=== PATIENT | female | born 1955 | race Caucasian/White ===

== ENCOUNTER 2016-10-12 16:55 | Inpatient (IN) | payer MEDICARE, OTHER ==
[2016-10-12] MEDS ORDERED: SODIUM CHLORIDE 0.9% 1,000 ML IV STA (17:03)
--- NOTE | 2016-10-12 17:09 | ED ---
General Adult HPI - General Chief complaint: Altered Mental Status Stated complaint: syncope Time Seen by Provider: 10/12/16 17:00 Source: patient, EMS, RN notes reviewed Mode of arrival: EMS Limitations: altered mental status, physical limitation - History of Present Illness Initial comments: Patient is a pleasant 61-year-old female presenting to the emergency Department with episodes of unresponsiveness. Patient was donating plasma with onset of symptoms. EMS reports patient has had approximately 4 episodes prior to arrival. Patient will suddenly become unresponsive. They have noticed PVCs however no other arrhythmia. Blood glucose was stable. Patient does have several episodes in the emergency department. It is difficult to obtain any history from the patient. Patient is able to orient self 3 however no further information is difficult to obtain. Patient does deny any pain. No history of similar symptoms previously - Related Data Home Medications Medication Instructions Recorded Confirmed Naproxen Sodium [Aleve] 440 mg PO BID PRN 10/12/16 10/12/16 Allergies Allergy/AdvReac Type Severity Reaction Status Date / Time hydromorphone HCl Allergy Dyspnea Verified 10/12/16 17:36 [From Dilaudid] Iodinated Contrast Media - AdvReac Severe Decreased Verified 10/12/16 17:36 Oral and Blood Pressure Review of Systems ROS Statement: Those systems with pertinent positive or pertinent negative responses have been documented in the HPI. ROS Other: All systems not noted in ROS Statement are negative. Constitutional: Denies: fever Eyes: Reports: vision change (Hard to move the eyes) ENT: Denies: throat pain Respiratory: Denies: dyspnea Cardiovascular: Denies: chest pain Endocrine: Denies: polydipsia Gastrointestinal: Denies: abdominal pain Genitourinary: Denies: dysuria Musculoskeletal: Denies: back pain Skin: Denies: rash Neurological: Reports: confusion Past Medical History Past Medical History: Pneumonia Additional Past Medical History / Comment(s): irregular heart beat, chronic low back pain, bronchitis, recent UTI completed ABX and urine now clear. History of Any Multi-Drug Resistant Organisms: None Reported Past Surgical History: Appendectomy, Cholecystectomy, Hysterectomy, Orthopedic Surgery, Tonsillectomy, Tubal Ligation Additional Past Surgical History / Comment(s): Posterior lumbar decompression with fusion L5-S1, plate L wrist, laparoscopy-found tubal infection tx with ABX. Past Anesthesia/Blood Transfusion Reactions: No Reported Reaction Past Psychological History: No Psychological Hx Reported Additional Psychological History / Comment(s): Pt resides with her spouse. She is independent. Smoking Status: Former smoker Past Alcohol Use History: None Reported Additional Past Alcohol Use History / Comment(s): Pt states she started smoking in 1979 and quit in 2009. Past Drug Use History: None Reported - Past Family History Father History Unknown: Yes Mother Family Medical History: Seizure Disorder Additional Family Medical History / Comment(s): Mother is 81 yrs old. She has depression. General Exam Limitations: altered mental status General appearance: alert Head exam: Present: atraumatic Eye exam: Present: normal appearance, PERRL, other (Very difficult to perform eye exam. Patient states she is unable to move her eyes. This does appear to be transient.) ENT exam: Present: normal oropharynx, other (Gag reflex is present ) Neck exam: Present: normal inspection Respiratory exam: Present: normal lung sounds bilaterally Cardiovascular Exam: Present: regular rate, normal rhythm Expanded Peripheral pulses: 2+: Radial (R), Radial (L), Dorsalis Pedis (R), Dorsalis Pedis (L) GI/Abdominal exam: Present: soft, normal bowel sounds. Absent: distended, tenderness, guarding, rebound, rigid, pulsatile mass Extremities exam: Present: normal inspection. Absent: pedal edema, calf tenderness Expanded Neurological exam: Present: protecting the airway, other (Unable to assess fully for facial palsy. Patient has difficulty with exam) Patient oriented to: Present: person, place, time Cranial nerves: Facial Sensation: Normal Sensory exam: Upper Extremity Light Touch: Normal, Lower Extremity Light Touch: Normal Motor strength exam: RUE: 3, LUE: 5, RLE: 2/1, LLE: 2/1 Eye Response: (4) open spontaneously Motor Response: (6) obeys commands Verbal Response: (5) oriented Psychiatric exam: Present: normal affect, normal mood Skin exam: Present: normal color Course Vital Signs 10/12/16 10/12/16 10/12/16 16:56 17:00 17:15 Temperature 98.0 F Pulse Rate 55 L 60 58 L Respiratory 16 16 16 Rate Blood Pressure 144/70 145/68 139/65 O2 Sat by Pulse 98 100 Oximetry 10/12/16 10/12/16 17:30 17:45 Temperature 98.0 F 98.0 F Pulse Rate 82 70 Respiratory 16 18 Rate Blood Pressure 132/78 122/58 O2 Sat by Pulse 96 100 Oximetry - Reevaluation(s) Reevaluation #1: 10/12/16 17:09 Patient does have several episodes in the emergency department of decreased responsiveness. Patient does not talk during these episodes her follow commands. Patient also has episodes in between unresponsiveness and near full responsiveness. 10/12/16 17:38 Case was discussed with neural interventionalist, Dr. choi who is not completely convinced this is a stroke. He will review CT and CTA. Patient is going for CTA at this time. 10/12/16 18:36 Case again discussed with Dr. Choi who does not see acute abnormality with CTA. He is agreeable to starting Dilantin for possible seizure. He is also unclear of exact etiology causing the patient's symptoms at this time. 10/12/16 19:45 Patient again reexamined and significantly improved. Patient is alert and appropriate. No upper extremity weakness. Patient still has bilateral leg weakness. Patient is now complaining of dizziness. Patient earlier had complained of nausea. EKG Findings - EKG Comments: EKG Findings:: Bradycardia at 58. PVC is present. IL 136. QRS 84. QT 440. qtc 41. Normal axis. Normal QRS. Normal ST-T. Medical Decision Making - Lab Data Result diagrams: 10/12/16 17:33 10/12/16 17:33 Lab Results 10/12/16 10/12/16 10/12/16 Range/Units 17:33 17:33 17:33 WBC 13.9 H (3.8-10.6) k/uL RBC 4.91 (3.80-5.40) m/uL Hgb 15.2 (11.4-16.0) gm/dL Hct 45.9 (34.0-46.0) % MCV 93.5 (80.0-100.0) fL MCH 30.9 (25.0-35.0) pg MCHC 33.0 (31.0-37.0) g/dL RDW 12.9 (11.5-15.5) % Plt Count 342 (150-450) k/uL Neutrophils % 65 % Lymphocytes % 27 % Monocytes % 4 % Eosinophils % 1 % Basophils % 1 % Neutrophils # 9.1 H (1.3-7.7) k/uL Lymphocytes # 3.7 (1.0-4.8) k/uL Monocytes # 0.6 (0-1.0) k/uL Eosinophils # 0.2 (0-0.7) k/uL Basophils # 0.1 (0-0.2) k/uL PT (9.0-12.0) sec INR (<1.1) APTT (22.0-30.0) sec Sodium 138 (137-145) mmol/L Potassium 4.2 (3.5-5.1) mmol/L Chloride 109 H (98-107) mmol/L Carbon Dioxide 25 (22-30) mmol/L Anion Gap 4 mmol/L BUN 21 H (7-17) mg/dL Creatinine 0.93 (0.52-1.04) mg/dL Est GFR (MDRD) Af Amer >60 (>60 ml/min/1.73 sqM) Est GFR (MDRD) Non-Af >60 (>60 ml/min/1.73 sqM) Glucose 98 (74-99) mg/dL POC Glucose (mg/dL) (75-99) mg/dL POC Glu Parts Designer ID Calcium 9.4 (8.4-10.2) mg/dL Total Bilirubin 0.5 (0.2-1.3) mg/dL AST 15 (14-36) U/L ALT 25 (9-52) U/L Alkaline Phosphatase 70 (38-126) U/L Total Creatine Kinase 55 (30-135) U/L CK-MB (CK-2) 0.4 (0.0-2.4) ng/mL CK-MB (CK-2) Rel Index 0.7 Troponin I <0.012 (0.000-0.034) ng/mL Total Protein 5.8 L (6.3-8.2) g/dL Albumin 3.4 L (3.5-5.0) g/dL Urine Color Urine Appearance (Clear) Urine pH (5.0-8.0) Ur Specific [place] (1.001-1.035) Urine Protein (Negative) Urine Glucose (UA) (Negative) Urine Ketones (Negative) Urine Blood (Negative) Urine Nitrite (Negative) Urine Bilirubin (Negative) Urine Urobilinogen (<2.0) mg/dL Ur Leukocyte Esterase (Negative) Urine RBC (0-5) /hpf Urine WBC (0-5) /hpf Ur Squamous Epith Cells (0-4) /hpf Urine Bacteria (None) /hpf Hyaline Casts (0-2) /lpf Urine Mucus (None) /hpf Urine Opiates Screen (NotDetected) Ur Oxycodone Screen (NotDetected) Urine Methadone Screen (NotDetected) Ur Propoxyphene Screen (NotDetected) Ur Barbiturates Screen (NotDetected) U Tricyclic Antidepress (NotDetected) Ur Phencyclidine Scrn (NotDetected) Ur Amphetamines Screen (NotDetected) U Methamphetamines Scrn (NotDetected) U Benzodiazepines Scrn (NotDetected) Urine Cocaine Screen (NotDetected) U Marijuana (THC) Screen (NotDetected) 10/12/16 10/12/16 10/12/16 Range/Units 17:33 17:55 18:46 WBC (3.8-10.6) k/uL RBC (3.80-5.40) m/uL Hgb (11.4-16.0) gm/dL Hct (34.0-46.0) % MCV (80.0-100.0) fL MCH (25.0-35.0) pg MCHC (31.0-37.0) g/dL RDW (11.5-15.5) % Plt Count (150-450) k/uL Neutrophils % % Lymphocytes % % Monocytes % % Eosinophils % % Basophils % % Neutrophils # (1.3-7.7) k/uL Lymphocytes # (1.0-4.8) k/uL Monocytes # (0-1.0) k/uL Eosinophils # (0-0.7) k/uL Basophils # (0-0.2) k/uL PT 10.8 (9.0-12.0) sec INR 1.1 (<1.1) APTT 20.6 L (22.0-30.0) sec Sodium (137-145) mmol/L Potassium (3.5-5.1) mmol/L Chloride (98-107) mmol/L Carbon Dioxide (22-30) mmol/L Anion Gap mmol/L BUN (7-17) mg/dL Creatinine (0.52-1.04) mg/dL Est GFR (MDRD) Af Amer (>60 ml/min/1.73 sqM) Est GFR (MDRD) Non-Af (>60 ml/min/1.73 sqM) Glucose (74-99) mg/dL POC Glucose (mg/dL) 89 (75-99) mg/dL POC Glu Parts Designer ID Marya Kern Calcium (8.4-10.2) mg/dL Total Bilirubin (0.2-1.3) mg/dL AST (14-36) U/L ALT (9-52) U/L Alkaline Phosphatase (38-126) U/L Total Creatine Kinase (30-135) U/L CK-MB (CK-2) (0.0-2.4) ng/mL CK-MB (CK-2) Rel Index Troponin I (0.000-0.034) ng/mL Total Protein (6.3-8.2) g/dL Albumin (3.5-5.0) g/dL Urine Color Yellow Urine Appearance Clear (Clear) Urine pH 5.5 (5.0-8.0) Ur Specific [place] 1.028 (1.001-1.035) Urine Protein Negative (Negative) Urine Glucose (UA) Negative (Negative) Urine Ketones Negative (Negative) Urine Blood Negative (Negative) Urine Nitrite Positive H (Negative) Urine Bilirubin Negative (Negative) Urine Urobilinogen <2.0 (<2.0) mg/dL Ur Leukocyte Esterase Negative (Negative) Urine RBC <1 (0-5) /hpf Urine WBC 1 (0-5) /hpf Ur Squamous Epith Cells <1 (0-4) /hpf Urine Bacteria Rare H (None) /hpf Hyaline Casts 5 H (0-2) /lpf Urine Mucus Rare H (None) /hpf Urine Opiates Screen Not Detected (NotDetected) Ur Oxycodone Screen Not Detected (NotDetected) Urine Methadone Screen Not Detected (NotDetected) Ur Propoxyphene Screen Not Detected (NotDetected) Ur Barbiturates Screen Not Detected (NotDetected) U Tricyclic Antidepress Not Detected (NotDetected) Ur Phencyclidine Scrn Not Detected (NotDetected) Ur Amphetamines Screen Not Detected (NotDetected) U Methamphetamines Scrn Not Detected (NotDetected) U Benzodiazepines Scrn Not Detected (NotDetected) Urine Cocaine Screen Not Detected (NotDetected) U Marijuana (THC) Screen Not Detected (NotDetected) Disposition Clinical Impression: Syncope Disposition: ADMITTED IP TO THIS [facility] Condition: Serious Time of Disposition: 19:45
[2016-10-12] MEDS ORDERED: FAMOTIDINE 20 MG/2 ML VIAL IV STA (17:13)
[2016-10-12] MEDS ORDERED: diphenhydrAMINE 50 MG/ML 1 ML VIAL IVP STA (17:13)
[2016-10-12] MEDS ORDERED: methylPREDNISolone SOD SUCCI 125 MG/2 ML VIAL IV STA (17:13)
[2016-10-12] MEDS ORDERED: RX INFO: IV CONTRAST WAS GIVEN 1 EACH MISC MISCELLANE PRN (17:13)
--- NOTE | 2016-10-12 17:23 | CT ---
EXAMINATION TYPE: CT brain wo con for TPA DATE OF EXAM: 10/12/2016 5:14 PM COMPARISON: NONE INDICATION: Stroke like symptoms. DLP: 998 mGycm, Automated exposure control for dose reduction was used. CONTRAST: None CT of the brain is performed utilizing 3 mm thick sections through the posterior fossa and 3 mm thick sections through the remaining calvarium. Study is performed within 24 hours of arrival to the hosp ital. No abnormal hyperdensity is present to suggest an acute intracranial hemorrhage. No mass lesion is evident. No acute infarcts are evident. Ventricles and sulci are appropriate for the patient age. Paranasal sinuses and mastoid air cells within the [id number] are clear. IMPRESSIONS: 1. Normal CT Brain 2. No acute intracranial changes. 3. Report was called to the emergency room physician Dr. Lan 1720 hours 10/12/[address] Dawson.
[2016-10-12 17:56] LABS: Glucose,Whole Blood 89 mg/dL (75-99)
[2016-10-12 18:11] LABS: Basophils # (A) 0.1 k/uL (0-0.2); Basophils % (A) 1 %; CH 31.4; CHCM 33.7; Eosinophils # (A) 0.2 k/uL (0-0.7); Eosinophils % (A) 1 %; HCT 45.9 % (34.0-46.0); HDW 2.29; HGB 15.2 gm/dL (11.4-16.0); Luc # (Auto) 0.25; Luc % (Auto) 2; Lymphocytes # (A) 3.7 k/uL (1.0-4.8); Lymphocytes % (A) 27 %; MCH 30.9 pg (25.0-35.0); MCV 93.5 fL (80.0-100.0); Mean Platelet Volume 6.8; Monocytes # (A) 0.6 k/uL (0-1.0); Monocytes % (A) 4 %; Neutrophils # (A) 9.1 k/uL (1.3-7.7); Neutrophils % (A) 65 %; RBC 4.91 m/uL (3.80-5.40); RDW 12.9 % (11.5-15.5); WBC 13.9 k/uL (3.8-10.6); WBC (Perox) 14.05
[2016-10-12] MEDS ORDERED: NALOXONE 0.4 MG/ML 1 ML VIAL IV STA (18:14)
--- NOTE | 2016-10-12 18:24 | CT ---
EXAMINATION TYPE: CT angio head neck DATE OF EXAM: 10/12/2016 5:57 PM COMPARISON: NONE HISTORY: Stroke like symptoms. CT DLP: 270 mGycm Automated exposure control for dose reduction was used. TECHNIQUE: Performed with IV Contrast, patient injected with 65 mL of Omnipaque 350. . FINDINGS: CTA neck: There is a three-vessel arch. Vertebral arteries appear codominant. Common carotid arteries appear unremarkable. Bifurcations are low at the level of the vocal cords. Internal carotid arteries are patent to the [place]: A1 segments are normal. A2 segments are normal. Middle cerebral artery branches marlene ear normal bilaterally. No abrupt truncation is evident. There is smaller peripheral vascularity of t he left middle cerebral artery branches than on the right. Correlate with the patient's symptoms. Lef t posterior communicating artery appears to be patent. Reconstructed images in the coronal and sagittal plane are more symmetrical appearance. Suspicious ch anges are not identified 3-D [id number] imaging is performed separately on the vitrea atheromatous plaquing of the right i nternal carotid artery origin is noted. No significant flow-limiting. Computer. IMPRESSION: THERE IS SOME SUBTLE ASYMMETRY OF THE LEFT MIDDLE CEREBRAL ARTERY BRANCHES PERFUSION COMPARED TO THE RIGHT. HOWEVER, AN ABRUPT CUT OFF IS NOT IDENTIFIED. 2. BILATERAL CAROTID BIFURCATIONS HAVE A LOW ORIGIN. NO STENOSIS IS EVIDENT.
[2016-10-12 18:31] LABS: INR 1.1 (<1.1); Prothrombin Time 10.8 sec (9.0-12.0)
[2016-10-12] MEDS ORDERED: PHENYTOIN SODIUM INJ 1,000 MG in SODIUM CHLORIDE 0.9% 100 ML IVPB STA (18:36)
[2016-10-12 18:41] LABS: Creatine Kinase 55 U/L (30-135)
[2016-10-12 18:47] LABS: ALT 25 U/L (9-52); AST 15 U/L (14-36); Alkaline Phosphatase 70 U/L (38-126); Anion Gap 4 mmol/L; Blood Urea Nitrogen 21 mg/dL (7-17); Calcium 9.4 mg/dL (8.4-10.2); Carbon Dioxide 25 mmol/L (22-30); Chloride 109 mmol/L (98-107); Glucose 98 mg/dL (74-99); Non-African American GFR(MDRD) >60 (>60 ml/min/1.73 sqM); Potassium 4.2 mmol/L (3.5-5.1); Sodium 138 mmol/L (137-145); Total Bilirubin 0.5 mg/dL (0.2-1.3); Total Protein 5.8 g/dL (6.3-8.2)
[2016-10-12 18:52] LABS: Creatine Kinase MB 0.4 ng/mL (0.0-2.4); Troponin I <0.012 ng/mL (0.000-0.034)
--- NOTE | 2016-10-12 19:15 | XR ---
EXAMINATION TYPE: XR chest 1V portable DATE OF EXAM: 10/12/2016 6:51 PM COMPARISON: 06/21/2016 INDICATION: Altered mental status TECHNIQUE: Single frontal view of the chest is obtained. FINDINGS: The heart size is normal. The pulmonary vasculature is normal. The lungs are clear. IMPRESSION: 1. No acute pulmonary process.
[2016-10-12] MEDS ORDERED: ONDANSETRON 4 MG/2 ML VIAL IVP STA (19:18)
[2016-10-12 19:35] LABS: Partial Thromboplastin Time 20.6 sec (22.0-30.0)
[2016-10-12 19:36] LABS: Appearance,Urine Clear (Clear); Bacteria,Urine Rare /hpf; Bilirubin,Urine Negative (Negative); Glucose,Urine (UA) Negative (Negative); Ketones,Urine Negative (Negative); Leukocyte Esterase,Urine Negative (Negative); Mucus,Urine Rare /hpf; Nitrite,Urine Positive (Negative); PH, Urine 5.5 (5.0-8.0); Particle Count 40669; Protein,Urine Negative (Negative); RBC,Urine <1 /hpf (0-5); Specific Gravity,Urine 1.028 (1.001-1.035); Squamous Epithelial Cell,Urine <1 /hpf (0-4); UA Billing (MACRO vs. MICRO) MICRO; Urobilinogen,Urine <2.0 mg/dL (<2.0); WBC,Urine 1 /hpf (0-5)
[2016-10-12] MEDS ORDERED: METOCLOPRAMIDE 5 MG/ML 2 ML VIAL IVP STA (19:46)
[2016-10-12] MEDS ORDERED: MECLIZINE 12.5 MG TAB PO STA (19:46)
[2016-10-12] MEDS ORDERED: ASPIRIN 325 MG TAB PO STA (19:47)
[2016-10-12] MEDS ORDERED: MECLIZINE 25 MG TAB PO STA (22:26)
[2016-10-12] MEDS: SODIUM CHLORIDE 0.9% 1,000 ML IV SCH (23:23)
[2016-10-13] MEDS: SODIUM CHLORIDE 0.9% 1,000 ML IV SCH ×2 (06:58→15:31)
[2016-10-13] MEDS: ASPIRIN 325 MG TAB PO SCH (07:39)
--- NOTE | 2016-10-13 08:41 | US ---
EXAMINATION TYPE: US carotid duplex BILAT DATE OF EXAM: 10/13/2016 8:29 AM COMPARISON: NONE CLINICAL HISTORY: Stenosis. Syncope EXAM MEASUREMENTS: RIGHT: Peak Systolic Velocity (PSV) cm/sec ----- Right CCA: 78.4 ----- Right ICA: 64.7 ----- Right ECA: 111.3 ICA/CCA ratio: 0.8 RIGHT: End Diastole cm/sec ----- Right CCA: 24.6 ----- Right ICA: 23.0 ----- Right ECA: 22.5 LEFT: Peak Systolic Velocity (PSV) cm/sec ----- Left CCA: 59.4 ----- Left ICA: 71.1 ----- Left ECA: 98.2 ICA/CCA ratio: 1.2 LEFT: End Diastole cm/sec ----- Left CCA: 16.7 ----- Left ICA: 16.7 ----- Left ECA: 18.0 VERTEBRALS (direction of flow): Right Vertebral: Antegrade Left Vertebral: Antegrade Mild plaque bilateral bifurcations. No increased velocities. NO evidence of significant stenosis. Heart plaque in posterior shadowing is at the right common carotid artery near the bifurcation. Intim al thickening is present on the right. Mild plaquing is present on the left. IMPRESSION: 1. Atheromatous plaquing without significant flow-limiting stenosis. Criteria for Assigning % of Stenosis / Diameter reduction (Estimation based on the indirect measurements of the internal carotid artery velocities (ICA PSV). 1. Normal (no stenosis)=ICA PSV < 125 cm/s: ratio < 2.0: ICA EDV<40 cm/s. 2. Less than 50% stenosis=ICA PSV < 125 cm/s: ratio < 2.0: ICA EDV<40 cm/s. 3. 50 to 69% stenosis=ICA PSV of 125 to 230 cm/s: ration 2.0 ? 4.0: ICA EDV 40-100 cm/s. 4. Greater than 70% stenosis to near occlusion= ICA PSV > 230 cm/s: ratio > 4.0: ICA EDV > 100 cm/s. 5. Near occlusion= ICA PSV velocities may be low or undetectable: variable ratio and ICA EDV. 6. Total occlusion=unable to detect flow.
[2016-10-13 11:02] LABS: Cholesterol 124 mg/dL (<200); HDL Cholesterol 39 mg/dL (40-60); Triglycerides 121 mg/dL (<150)
[2016-10-13] MEDS: ATORVASTATIN 40 MG TAB PO SCH (12:18)
--- NOTE | 2016-10-13 13:10 | P.HPIM ---
History of Present Illness H&P Date: 10/13/16 Chief Complaint: CVA with left sided hemiparesis This is a 61-year-old female one of Dr. Alfaro with a previous medical history significant for osteoarthritis, chronic low back pain, without prior history of TIA or CVA, patient underwent plasma donation at the [facility] in one of those clinic, while she was there she developed to have significant dizziness and lightheadedness and she started losing her consciousness is matter fact she lost her consciousness and started to twitch and according to her daughter and her eyes rolled back and the patient was transported to the emergency department at [facility] for evaluation, patient developed to have a significant in responsiveness while she they are had a computed tomography scan of the brain that was negative for acute ischemia patient became quite weak on the left upper and left lower extremity, she was evaluated for TPA by the interventional neurology, and the patient underwent CT angiography that was negative for acute thrombus, and that time patient was loaded with Dilantin and she was admitted to hospital for evaluation and continued to have weakness in the left upper left lower extremity. Review of Systems Constitutional: Reports chronic pain, Denies anorexia, Denies chronic headaches , Denies lethargy, Denies malaise, Denies weakness, Denies weight gain Eyes: denies blurred vision, denies bulging eye, denies decreased vision, denies diplopia Ears: deny: decreased hearing Ears, nose, mouth and throat: Denies dysphagia, Denies neck lump, Denies sore throat Cardiovascular: Denies chest pain, Denies dyspnea on exertion, Denies high blood pressure, Denies paroxysmal nocturnal dyspnea, Denies rapid heart beat, Denies shortness of breath, Denies syncope Respiratory: Denies congestion, Denies cough, Denies cough with sputum, Denies home oxygen, Denies sleep apnea, Denies snoring, Denies wheezing Gastrointestinal: Denies abdominal pain, Denies bloating, Denies BRBPR, Denies heartburn, Denies melena, Denies nausea, Denies vomiting Genitourinary: Denies dysuria Menstruation: Reports post hysterectomy, Reports postmenopausal Musculoskeletal: Reports low back pain Musculoskeletal: absent: ankle pain, ankle stiffness, ankle swelling, elbow pain , elbow stiffness, elbow swelling, foot pain, foot stiffness, foot swelling, hand pain, hand stiffness, hand swelling, hip pain, hip stiffness, hip swelling , knee pain, knee stiffness, knee swelling, shoulder pain, shoulder stiffness, shoulder swelling, wrist pain, wrist stiffness, wrist swelling Integumentary: Denies pruritus, Denies rash Neurological: Reports gait dysfunction, Reports lack of coordination, Reports paralysis, Reports vertigo, Reports weakness Psychiatric: Denies anxiety, Denies depression Endocrine: Denies fatigue, Denies weight change Past Medical History Past Medical History: Hyperlipidemia, Pneumonia Additional Past Medical History / Comment(s): irregular heart beat, chronic low back pain, bronchitis, recent UTI completed ABX and urine now clear. History of Any Multi-Drug Resistant Organisms: None Reported Past Surgical History: Appendectomy, Cholecystectomy, Hysterectomy, Orthopedic Surgery, Tonsillectomy, Tubal Ligation Additional Past Surgical History / Comment(s): Posterior lumbar decompression with fusion L5-S1, plate L wrist, laparoscopy-found tubal infection tx with ABX. Past Anesthesia/Blood Transfusion Reactions: No Reported Reaction Past Psychological History: No Psychological Hx Reported Additional Psychological History / Comment(s): Pt resides with her spouse. She is independent. Smoking Status: Current every day smoker (Patient smokes one pack every day since the age of 16.) Past Alcohol Use History: Rare Additional Past Alcohol Use History / Comment(s): Pt states she started smoking in 1979 and quit in 2009. Past Drug Use History: None Reported - Past Family History Father History Unknown: Yes Family Medical History: No Reported History (She denied much with her father.) Mother Family Medical History: Seizure Disorder (Mother is a 1-year-old has history of seizure and she also has a history of depression.) Additional Family Medical History / Comment(s): Mother is 81 yrs old. She has depression. Brother(s) Family Medical History: No Reported History (Patient has 3 half-brothers no major medical problems.) Sister(s) Family Medical History: No Reported History (Patient has one sister no major medical problem(she carried her from the sperm donor)) Son(s) Family Medical History: No Reported History (Patient has one son major medical problems) Daughter(s) Family Medical History: No Reported History (Patient has one daughter no major medical problems) Medications and Allergies Home Medications Medication Instructions Recorded Confirmed Type Naproxen Sodium [Aleve] 440 mg PO BID PRN 10/12/16 10/12/16 History Allergies Allergy/AdvReac Type Severity Reaction Status Date / Time hydromorphone HCl Allergy Dyspnea Verified 10/12/16 17:36 [From Dilaudid] Iodinated Contrast Media - AdvReac Severe Decreased Verified 10/12/16 17:36 Oral and Blood Pressure Physical Exam Vitals: Vital Signs Temp Pulse Pulse Resp BP BP Pulse Ox 10/13/16 07:37 96.5 F L 65 16 95/56 96 10/13/16 04:00 97.6 F 65 17 108/59 94 L 10/13/16 00:00 97.4 F L 70 18 101/54 93 L 10/12/16 22:47 97.4 F L 70 18 101/54 94 L 10/12/16 22:07 72 17 10/12/16 21:47 97.8 F 72 17 105/62 93 L 10/12/16 21:15 73 18 97/61 96 10/12/16 20:55 73 20 96/56 96 10/12/16 20:32 98.4 F 67 17 105/59 93 L 10/12/16 20:23 66 18 105/58 99 Intake and Output 10/12/16 10/13/16 10/13/16 22:59 06:59 14:59 Intake Total 900 900 Output Total 500 Balance 400 900 Intake: IV 500 900 Sodium Chloride 0.9% 1, 500 900 000 ml @ 100 mls/hr IV . Q10H [facility] Rx#:[id number] Amount of Fluid Infused ( 400 ml) Output: Urine 500 Other: Voiding Method Indwelling Catheter Indwelling Catheter # Voids 1 Weight 68.039 kg - Constitutional General appearance: no acute distress - EENT Eyes: EOMI, PERRLA, no ptosis, no scleral icterus, normal appearance ENT: hearing grossly normal, NA/AT, normal oropharynx, no thrush Ears: bilateral: normal - Neck Neck: no lymphadenopathy, normal ROM, no rigidity, no stridor, no thyromegaly Carotids: bilateral: upstroke normal Thyroid: bilateral: normal size - Respiratory Respiratory: bilateral: diminished, negative: dullness, rales, rhonchi, wheezing , prolonged expiration, prolonged inspiration - Cardiovascular Rhythm: regular Heart sounds: normal: S1, S2 Abnormal Heart Sounds: systolic murmur, no rub, no S3 Gallop, no S4 Gallop, no click - Gastrointestinal General gastrointestinal: normal bowel sounds, soft, no splenomegaly, no tenderness, no umbilical hernia, no ventral hernia - Integumentary Integumentary: normal, normal turgor - Neurologic Neurologic: CNII-XII intact, focal deficits (Left-sided hemiparesis) - Musculoskeletal Musculoskeletal: left sided weakness - Psychiatric Psychiatric: A&O x's 3, appropriate affect, intact judgment & insight Results CBC & Chem 7: 10/12/16 17:33 10/12/16 17:33 Thrombosis Risk Factor Assmnt - DVT/VTE Prophylaxis DVT/VTE Prophylaxis: Pharmacologic Prophylaxis ordered, Mechanical Prophylaxis ordered - Choose All That Apply Each Risk Factor Represents 2 Points: Age 61-74 years Thrombosis Risk Factor Assessment Total Risk Factor Score: 2 Thrombosis Risk Factor Assessment Level: Low Risk Assessment and Plan Plan: Assessment and plan: 1. Possible acute CVA with left-sided hemiparesis. Admit the patient to the hospital, MRI/MRA of the brain, neuro check every 2 hours for the next 24 hours , ultrasound of the carotid, echocardiogram, MRI with and without gadolinium, aspirin 325 mg orally once every day, swallow screen was performed at the bedside by myself, start Lipitor 40 mg orally once every day, check homocysteine level, await further recommendation by neurology, physical therapy , occupational therapy, speech therapy evaluation. 2. Possible seizure. Patient did receive Dilantin by loading dose, we will start the patient on Dilantin 100 mg orally 3 times every day, and we'll recheck the patient Dilantin level and free Dilantin level in the next 24 hours. 3. Chronic tobacco use and dependence . Smoking cessation and counseling an increased risk of CVA, CAD, and malignancy. 4. Right low back pain. Stable at this point in time. 5. DVT prophylaxis. Lovenox 40 mg subcutaneously every 24 hours along with knee-high ATUL hose. 6. GI prophylaxis. Continue patient on PPI. 7. Patient is full code. 8. Admit to inpatient. 9. Estimated length of stay 2 midnights.
--- NOTE | 2016-10-13 17:03 | P.CNNES ---
History of Present Illness Consult date: 10/13/16 Requesting physician: Josef Lan Reason for Consult: CVA Chief complaint: altered mental status/possible CVA History of Present Illness: Neurology being requested to consult on a 61-year-old female who was presented to emergency room with episode of unresponsiveness for possible CVA. Patient was donating plasma when the onset of symptoms occurred. EMS transported the patient. She has had approximately 4 episodes prior to arrival. Patient will suddenly become unresponsive. They noticed PVCs however no other arrhythmia. Blood glucose was stable. Patient did have several episodes in the emergency department. Patient states she has been having dizziness for the last 2-4 weeks. Approximately 1-2 times per week lasting 5 minutes in duration but would resolve with rest. Patient also states she has had headaches bilaterally and globally within the same timeframe. Patient also has had diplopia with intermittent dizziness. She also has had fatigue that is increased at in the last 2-4 weeks but has been generally increasing in the last 2 months. Patient denies current dizziness, diplopia, numbness, tingling, disequilibrium, fever or chills. Patient had visual left eye ptosis that was slight during initial interaction. Patient did complain of left upper and lower extremity weakness, left eye ptosis with facial droop. Patient was alert and oriented 3, supine in bed, resting in no acute distress. Review of Systems All systems not previously noted are negative Past Medical History Past Medical History: Hyperlipidemia, Pneumonia Additional Past Medical History / Comment(s): irregular heart beat, chronic low back pain, bronchitis, recent UTI completed ABX and urine now clear. History of Any Multi-Drug Resistant Organisms: None Reported Past Surgical History: Appendectomy, Cholecystectomy, Hysterectomy, Orthopedic Surgery, Tonsillectomy, Tubal Ligation Additional Past Surgical History / Comment(s): Posterior lumbar decompression with fusion L5-S1, plate L wrist, laparoscopy-found tubal infection tx with ABX. Past Anesthesia/Blood Transfusion Reactions: No Reported Reaction Past Psychological History: No Psychological Hx Reported Additional Psychological History / Comment(s): Pt resides with her spouse. She is independent. Smoking Status: Current every day smoker (Patient smokes one pack every day since the age of 16.) Past Alcohol Use History: Rare Additional Past Alcohol Use History / Comment(s): Pt states she started smoking in 1979 and quit in 2009. Past Drug Use History: None Reported - Past Family History Father History Unknown: Yes Family Medical History: No Reported History (She denied much with her father.) Mother Family Medical History: Seizure Disorder (Mother is a 1-year-old has history of seizure and she also has a history of depression.) Additional Family Medical History / Comment(s): Mother is 81 yrs old. She has depression. Brother(s) Family Medical History: No Reported History (Patient has 3 half-brothers no major medical problems.) Sister(s) Family Medical History: No Reported History (Patient has one sister no major medical problem(she carried her from the sperm donor)) Son(s) Family Medical History: No Reported History (Patient has one son major medical problems) Daughter(s) Family Medical History: No Reported History (Patient has one daughter no major medical problems) Medications and Allergies Home Medications Medication Instructions Recorded Confirmed Type Naproxen Sodium [Aleve] 440 mg PO BID PRN 10/12/16 10/12/16 History Allergies Allergy/AdvReac Type Severity Reaction Status Date / Time hydromorphone HCl Allergy Dyspnea Verified 10/12/16 17:36 [From Dilaudid] Iodinated Contrast Media - AdvReac Severe Decreased Verified 10/12/16 17:36 Oral and Blood Pressure Physical Examination - Vital Signs Vital Signs: Vital Signs Temp Pulse Pulse Resp BP BP BP 10/13/16 15:21 97.8 F 80 16 10/13/16 10:31 66 16 109/56 109/60 10/13/16 07:37 96.5 F L 65 16 10/13/16 04:00 97.6 F 65 17 10/13/16 00:00 97.4 F L 70 18 10/12/16 22:47 97.4 F L 70 18 10/12/16 22:07 72 17 10/12/16 21:47 97.8 F 72 17 10/12/16 21:15 73 18 97/61 10/12/16 20:55 73 20 96/56 10/12/16 20:32 98.4 F 67 17 10/12/16 20:23 66 18 105/58 BP Pulse Ox 10/13/16 15:21 102/50 97 10/13/16 10:31 97 10/13/16 07:37 95/56 96 10/13/16 04:00 108/59 94 L 10/13/16 00:00 101/54 93 L 10/12/16 22:47 101/54 94 L 10/12/16 22:07 10/12/16 21:47 105/62 93 L 10/12/16 21:15 96 10/12/16 20:55 96 10/12/16 20:32 105/59 93 L 10/12/16 20:23 99 Intake and Output 10/13/16 10/13/16 10/13/16 06:59 14:59 22:59 Intake Total 900 416 Balance 900 416 Intake: IV 900 Sodium Chloride 0.9% 1, 900 000 ml @ 100 mls/hr IV . Q10H STEF Rx#:[id number] Oral 416 Other: Voiding Method Indwelling Catheter # Voids 1 2 Constitutional: AOx3, cooperative HEENT: NC/AT, no facial asymmetry is seen. Neck: Supple, no masses Respiratory: No increased work of breathing Cardiac: Regular rate and Rhythm GI: non tender, non distended Musculoskeletal: RUE: 10/25 RLE: 10/25 LUE: 08/25 LLE: 06/27 Neurological: CN II-XII in tact, patient was AOx3, speech and language are normal, unilateralizing weakness as noted- left hemiparesis, left ptosis and left facial droop, no seizure activity note on physical exam. Sensation was normal. Finger to nose elicits 'Crossed eyed" vision per patient. Integementary: no rash, no erythema Psychiatric: mood and affect appropriate Results - Laboratory Findings CBC and BMP: 10/12/16 17:33 10/12/16 17:33 Abnormal Lab Findings: Abnormal Labs 10/13/16 10:12 HDL Cholesterol 39 L Assessment and Plan (1) Hemiparesis affecting left side as late effect of cerebrovascular accident Status: Acute (2) Altered mental status Status: Acute Plan: 1. CVA 2. Altered mental status 3. Left hemiparesis 4. Possible seizure After review of the CT brain which noted no acute process and the CT angiogram which noted some subtle asymmetry of the left MCA branches perfusion compared to the right however an abrupt cutoff is not identified, the patient does appear to have suffered a CVA. Patient does have left-sided hemiparesis, dysphagia due to perioral facial droop. MRI was Ordered along with serum homocystine, fasting lipid panel, aspirin and Lipitor by ED and PCP. MRI of the brain is pending. After reviewing the chart, it does appear the patient's symptoms wax and wane. EEG ordered. PT, OT and speech therapy on consult. Possible seizure. Patient had been started on Trileptal. Continue trileptal and await blood level analysis for therapeutic window. Seizure precaustions as ordered. Further updates be forthcoming once results of the EEG is obtained. status: Neurology will continue to follow, provide further updates as needed or warranted. I discussed the patient's pertinent medical information with Dr. Retana. He agrees with the plan of care as implemented.
[2016-10-14 06:33] VITALS: TEMP 97.3
[2016-10-14] MEDS: SODIUM CHLORIDE 0.9% 1,000 ML IV SCH (06:36)
[2016-10-14 06:49] LABS: Basophils # (A) 0.1 k/uL (0-0.2); Basophils % (A) 1 %; CH 31.2; CHCM 34.1; Eosinophils # (A) 0.2 k/uL (0-0.7); Eosinophils % (A) 2 %; HCT 30.7 % (34.0-46.0); HDW 2.35; Luc # (Auto) 0.23; Luc % (Auto) 3; Lymphocytes # (A) 3.6 k/uL (1.0-4.8); Lymphocytes % (A) 41 %; MCHC 34.8 g/dL (31.0-37.0); MCV 91.9 fL (80.0-100.0); Mean Platelet Volume 6.7; Monocytes # (A) 0.5 k/uL (0-1.0); Monocytes % (A) 5 %; Neutrophils # (A) 4.1 k/uL (1.3-7.7); Neutrophils % (A) 48 %; RBC 3.34 m/uL (3.80-5.40); RDW 12.9 % (11.5-15.5); WBC 8.6 k/uL (3.8-10.6); WBC (Perox) 8.75
[2016-10-14 06:57] LABS: HGB 10.7 gm/dL (11.4-16.0)
[2016-10-14 07:06] LABS: ALT 25 U/L (9-52); AST 11 U/L (14-36); Alkaline Phosphatase 57 U/L (38-126); Anion Gap 4 mmol/L; Blood Urea Nitrogen 17 mg/dL (7-17); Calcium 8.7 mg/dL (8.4-10.2); Carbon Dioxide 23 mmol/L (22-30); Chloride 116 mmol/L (98-107); Glucose 84 mg/dL (74-99); Non-African American GFR(MDRD) >60 (>60 ml/min/1.73 sqM); Potassium 4.1 mmol/L (3.5-5.1); Sodium 143 mmol/L (137-145); Total Bilirubin 0.2 mg/dL (0.2-1.3); Total Protein 4.6 g/dL (6.3-8.2)
[2016-10-14] MEDS: ATORVASTATIN 40 MG TAB PO SCH (07:47)
[2016-10-14] MEDS: ASPIRIN 325 MG TAB PO SCH (07:47)
[2016-10-14] MEDS ORDERED: methylPREDNISolone SOD SUCCI 125 MG/2 ML VIAL IV STA (09:38)
[2016-10-14] MEDS ORDERED: diphenhydrAMINE 50 MG CAP PO STA (09:38)
--- NOTE | 2016-10-14 09:58 | ECHOF ---
Referral Reason:Thrombus MEASUREMENTS -------- HEIGHT: 165.1 cm WEIGHT: 62.1 kg BP: 86/53 RVIDd: 3.0 cm (< 3.3) IVSd: 1.0 cm (0.6 - 1.1) LVIDd: 4.5 cm (3.9 - 5.3) LVPWd: 0.8 cm (0.6 - 1.1) IVSs: 1.5 cm LVIDs: 3.0 cm LVPWs: 1.4 cm LA Diam: 3.4 cm (2.7 - 3.8) LAESV Index (A-L): 28.41 ml/m Ao Diam: 2.9 cm (2.0 - 3.7) AV Cusp: 2.3 cm (1.5 - 2.6) MV EXCURSION: 12.972 mm (> 18.000) MV EF SLOPE: 113 mm/s (70 - 150) EPSS: 0.3 cm MV E Pascual: 0.97 m/s MV DecT: 202 ms MV A Pascual: 0.79 m/s MV E/A Ratio: 1.23 RAP: 5.00 mmHg RVSP: 22.13 mmHg FINDINGS -------- Sinus rhythm. This was a technically good study. The left ventricular size is normal. Left ventricular wall thickness is normal. Overall left ventricular systolic function is normal with, an EF between 60 - 65 %. The right ventricle is normal in size and function. Normal LA size by volume 22+/-6 ml/m2. The right atrium is normal in size. The aortic valve is trileaflet and appears structurally normal. Mild mitral annular calcification present. There is trace to mild mitral regurgitation. Mild tricuspid regurgitation present. Right ventricular systolic pressure is normal at < 35 mmHg. The pulmonic valve is normal. The aortic root size is normal. The inferior vena cava is mildly dilated. There is no pericardial effusion. CONCLUSIONS -------- 1. Sinus rhythm. 2. Mild mitral annular calcification present. 3. There is trace to mild mitral regurgitation. 4. Mild tricuspid regurgitation present. 5. Right ventricular systolic pressure is normal at < 35 mmHg. 6. The pulmonic valve is normal. 7. The aortic root size is normal. 8. The inferior vena cava is mildly dilated. 9. There is no pericardial effusion. 10. This was a technically good study. 11. The left ventricular size is normal. 12. Left ventricular wall thickness is normal. 13. Overall left ventricular systolic function is normal with, an EF between 60 - 65 %. 14. The right ventricle is normal in size and function. 15. Normal LA size by volume 22+/-6 ml/m2. 16. The right atrium is normal in size. 17. The aortic valve is trileaflet and appears structurally normal. LAYOUT ARTIST: Rosita Covarrubias RDCS
[2016-10-14 11:18] VITALS: BMI 22.8
--- NOTE | 2016-10-14 11:38 | MR ---
EXAMINATION TYPE: MR brain wo/w con DATE OF EXAM: 10/14/2016 11:22 AM COMPARISON: CT brain from 2 days earlier. HISTORY: CVA per order. Admitted for neuro deficits and strokelike symptoms 2 days earlier. TECHNIQUE: Multiplanar, multisequence images of the brain and brainstem is performed without and with IV contras t, utilizing 15 mL intravenous MultiHance . FINDINGS: Diffusion weighted images demonstrate no evidence of a recent infarct or other diffusion ab normality. There is no extra-axial fluid collection or significant white matter signal abnormality. The ventricular system and cisternal spaces are normal in size and appearance. The brain volume is age appropriate. Midline structures demonstrate normal morphology. The craniocervical junction appears within normal limits. Post contrast images demonstrate no abnormal enhancement. The dural venous sinuses appear pa tent. The visualized sinuses are clear and the globes are intact. IMPRESSION: No evidence of a recent infarct. No significant finding is seen to account for patient's symptoms currently.
[2016-10-14 12:48] VITALS: BP 124/63; PULSE 68; RESP 17
--- NOTE | 2016-10-16 14:38 | P.DS ---
Providers Date of admission: 10/12/16 19:47 Expected date of discharge: 10/14/16 Attending physician: Wilner Duke Primary care physician: Jarrett Alfaro [facility] Course: This is a 61-year-old female one of Dr. Alfaro with a previous medical history significant for osteoarthritis, chronic low back pain, without prior history of TIA or CVA, patient underwent plasma donation at the [facility] in one of those clinic, while she was there she developed to have significant dizziness and lightheadedness and she started losing her consciousness is matter fact she lost her consciousness and started to twitch and according to her daughter and her eyes rolled back and the patient was transported to the emergency department at [facility] for evaluation, patient developed to have a significant in responsiveness while she they are had a computed tomography scan of the brain that was negative for acute ischemia patient became quite weak on the left upper and left lower extremity, she was evaluated for TPA by the interventional neurology, and the patient underwent CT angiography that was negative for acute thrombus, and that time patient was loaded with Dilantin and she was admitted to hospital for evaluation and continued to have weakness in the left upper left lower extremity. 10/14: Echocardiogram reveals EF 60-65%, mild mitral regurgitation, mild tricuspid regurgitation. Carotid ultrasound showed no significant stenosis. MRI of the brain showed no evidence of recent infarct. No significant finding. Patient was seen by neurology with recommendations to continue Trileptal. Patient will be provided prescription for this and follow up with Dr. Retana. Discharge Diagnoses: 1. TIA 2. Possible seizure. 3. Chronic tobacco use and dependence 4. Right low back pain. Discharge plan: Home Impression and plan of care have been directed as dictated by the signing physician. Ashwini Hemphill nurse practitioner acting as scribe for signing physician. Cc: Dr. Jarrett Alfaro Patient Condition at Discharge: Good Plan - Discharge Summary New Discharge Prescriptions: Aspirin 81 mg PO DAILY #30 chewable Atorvastatin [Lipitor] 40 mg PO HS #30 tab OXcarbazepine [Trileptal] 300 mg PO BID #60 tab Discharge Medication List Naproxen Sodium [Aleve] 440 mg PO BID PRN 10/12/16 [History] Aspirin 81 mg PO DAILY #30 chewable 10/14/16 [Rx] Atorvastatin [Lipitor] 40 mg PO HS #30 tab 10/14/16 [Rx] OXcarbazepine [Trileptal] 300 mg PO BID #60 tab 10/14/16 [Rx] Follow up Appointment(s)/Referral(s): Amanda Retana MD [STAFF PHYSICIAN] - 2 Weeks Jarrett Alfaro MD [Primary Care Provider] - 1 Week Patient Instructions/Handouts: Syncope (DC), Ischemic Stroke (DC), Altered Mental Status (GEN) Discharge Disposition: HOME SELF-CARE
--- NOTE | 2016-10-30 09:08 | EEG ---
DATE OF SERVICE: 10/14/2016 INDICATIONS FOR EXAMINATION: Syncope and altered mental status. AGE: 61Y DESCRIPTION OF THE PROCEDURE: This EEG was performed using a 21-channel digital electroencephalograph, following the international 10 to 20 system. DESCRIPTION OF THE RECORDING: From the beginning of the tracing, and with the patient's eyes closed, the background rhythm was mostly consisting of 8 to 9 Hz alpha frequency in the posterior occipital leads. No obvious asymmetry is seen. Photic stimulation was performed with a minimal driving response seen. No pathological waves were elicited. Rare movement artifacts are noticed. Hyperventilation was not performed. The patient remains awake throughout the tracing. No epileptiform discharges were seen. Her EKG lead showed a regular rate and rhythm. INTERPRETATION: This awake EEG can be considered within normal limits. There was no asymmetry seen. No epileptiform discharges were noticed. The absence of epileptiform discharges does not rule out the diagnosis of epilepsy, therefore, clinical correlation is recommended.
== END 2016-10-14 15:40 | disposition home or self-care (01) | DRG 69 ==
LOC: EC 16:55 → 6SEL 19:47
PROVIDERS: ADMIT Internal Medicine; ATTEND Internal Medicine
DX: G45.9 Transient cerebral ischemic attack, unspecified (principal); I69.354 Hemiplegia and hemiparesis following cerebral infarction affecting left non-dominant side; I08.1 Rheumatic disorders of both mitral and tricuspid valves; G89.29 Other chronic pain; M54.5 Low back pain; M19.91 Primary osteoarthritis, unspecified site; E78.5 Hyperlipidemia, unspecified; H02.402 Unspecified ptosis of left eyelid; I49.3 Ventricular premature depolarization; F17.210 Nicotine dependence, cigarettes, uncomplicated; Z90.49 Acquired absence of other specified parts of digestive tract; Z90.710 Acquired absence of both cervix and uterus
CPT/HCPCS: 36415; 70450; 70496; 70498; 70553; 71010; 80053; 80061; 80185; 80186; 80306; 81001; 82550; 82553; 83090; 84484; 85025; 85610; 85730; 93005; 93306; 93880; 95816; 96361; 96365; 96366; 96375; 99285

== ENCOUNTER → 2016-11-15 | Outpatient (CLI) | payer MEDICARE, OTHER ==
--- NOTE | 2016-11-15 14:38 | MR ---
MR brain with and without contrast history: Stroke, I 63.9 Multiplanar multisequence and postcontrast images obtained through the brain, patient received 15 cc MultiHance IV. Correlation to prior MRI brain 13 Nov 2016 There is no restricted diffusion. Cerebellopontine angles, corpus callosum, pituitary, cervical medul braydon junction are normal. Brain signal is stable. There is no hemorrhage or hydrocephalus. The orbits are symmetric. There are normal vascular flow voids, normal vascular enhancement. No abnormal enhanc ement is evident. IMPRESSION: Stable exam, no acute abnormality evident.
== END | disposition home or self-care (01) ==
LOC: RADMRIMAIN 13:43
PROVIDERS: ATTEND Psychiatry & Neurology Pain Medicine
DX: I63.9 Cerebral infarction, unspecified (principal)
CPT/HCPCS: 70553; A9577

== ENCOUNTER → 2016-12-12 | Outpatient (CLI) | payer MEDICARE, OTHER | END | disposition home or self-care (01) | LOC: LABWHC1 16:49 | PROVIDERS: ATTEND Psychiatry & Neurology Pain Medicine | DX: E55.9 Vitamin D deficiency, unspecified (principal) | CPT/HCPCS: 36415; 82306 ==

== ENCOUNTER 2017-05-17 13:17 | Emergency (ER) | payer MEDICARE, OTHER ==
[2017-05-17] MEDS ORDERED: IPRATROPIUM-ALBUTEROL 3 ML NEB INHALATION STA (14:05)
[2017-05-17] MEDS ORDERED: SODIUM CHLORIDE 0.9% 1,000 ML IV STA (14:05)
[2017-05-17] MEDS ORDERED: methylPREDNISolone SOD SUCCI 125 MG/2 ML VIAL IV STA (14:05)
--- NOTE | 2017-05-17 14:10 | ED ---
URI HPI - General Chief Complaint: Upper Respiratory Infection Stated Complaint: SOB/Cough Time Seen by Provider: 05/17/17 13:57 Source: patient, RN notes reviewed Mode of arrival: ambulatory Limitations: no limitations - History of Present Illness Initial Comments: This is a 62-year-old female who states she's had about 2 and half weeks of cough and cold symptoms he had rhinorrhea persistent cough and green phlegm shortness of breath some fevers chills and sweats. Also some intermittent left shoulder pain gets worse with deep breathing and movement. The pain at times gets up to 8 or 9/10 in severity. She states she also gets more short of breath when she gets exposed to the dust from [place] patient reports no overt chest pain. She is a smoker but she states she's been smoking less over last couple days. He states she's never been diagnosed with COPD or emphysema she does have a history of bronchitis. MD Complaint: fever, cough, rhinorrhea, other - Related Data Home Medications Medication Instructions Recorded Confirmed Citalopram Hydrobromide [CeleXA] 20 mg PO DAILY 05/17/17 05/17/17 Ibuprofen [Motrin] 800 mg PO Q8H PRN 05/17/17 05/17/17 Lipitor 1 tab PO HS 05/17/17 05/17/17 Previous Rx's Medication Instructions Recorded Albuterol Inhaler [Ventolin Hfa 2 puff INHALATION Q6HR PRN #1 05/17/17 Inhaler] inhaler Amoxic-Pot Clav 875-125Mg 1 tab PO Q12HR #20 tablet 05/17/17 [Augmentin 875-125] predniSONE 20 mg PO BID #10 tab 05/17/17 Allergies Allergy/AdvReac Type Severity Reaction Status Date / Time hydromorphone HCl Allergy Dyspnea Verified 05/17/17 13:40 [From Dilaudid] Iodinated Contrast- Oral and AdvReac Severe Decreased Verified 05/17/17 13:40 IV Dye Blood [Iodinated Contrast Media - Pressure Oral and] Review of Systems ROS Statement: Those systems with pertinent positive or pertinent negative responses have been documented in the HPI. ROS Other: All systems not noted in ROS Statement are negative. Past Medical History Past Medical History: Hyperlipidemia, Pneumonia Additional Past Medical History / Comment(s): irregular heart beat, chronic low back pain, bronchitis, recent UTI completed ABX and urine now clear. History of Any Multi-Drug Resistant Organisms: None Reported Past Surgical History: Appendectomy, Back Surgery, Cholecystectomy, Hysterectomy , Orthopedic Surgery, Tonsillectomy, Tubal Ligation Additional Past Surgical History / Comment(s): Posterior lumbar decompression with fusion L5-S1, plate L wrist, laparoscopy-found tubal infection tx with ABX. Past Anesthesia/Blood Transfusion Reactions: No Reported Reaction Past Psychological History: No Psychological Hx Reported Smoking Status: Current every day smoker Past Alcohol Use History: Rare Past Drug Use History: None Reported - Past Family History Father History Unknown: Yes Family Medical History: No Reported History (She denied much with her father.) Mother Family Medical History: Seizure Disorder (Mother is a 1-year-old has history of seizure and she also has a history of depression.) Additional Family Medical History / Comment(s): Mother is 81 yrs old. She has depression. Brother(s) Family Medical History: No Reported History (Patient has 3 half-brothers no major medical problems.) Sister(s) Family Medical History: No Reported History (Patient has one sister no major medical problem(she carried her from the sperm donor)) Son(s) Family Medical History: No Reported History (Patient has one son major medical problems) Daughter(s) Family Medical History: No Reported History (Patient has one daughter no major medical problems) General Exam - General Exam Comments Initial Comments: This is a well-developed well-nourished awake alert oriented 3 female Limitations: no limitations General appearance: alert, in no apparent distress Head exam: Present: atraumatic, normocephalic, normal inspection Eye exam: Present: normal appearance, PERRL, EOMI. Absent: scleral icterus, conjunctival injection, periorbital swelling ENT exam: Present: mucous membranes moist, TM's normal bilaterally, other (Mild posterior pharyngeal hyperemia without any exudate noted. Boggy nasal mucosa.) Neck exam: Present: normal inspection. Absent: tenderness, meningismus, lymphadenopathy Respiratory exam: Present: decreased breath sounds. Absent: respiratory distress, wheezes, rales, rhonchi, stridor Cardiovascular Exam: Present: regular rate, normal rhythm, normal heart sounds. Absent: systolic murmur, diastolic murmur, rubs, gallop, clicks GI/Abdominal exam: Present: soft, normal bowel sounds. Absent: distended, tenderness, guarding, rebound, rigid Extremities exam: Present: normal inspection, full ROM, normal capillary refill. Absent: tenderness, pedal edema, joint swelling, calf tenderness Back exam: Present: normal inspection Neurological exam: Present: alert, oriented X3, CN II-XII intact Psychiatric exam: Present: normal affect, normal mood Skin exam: Present: warm, dry, intact, normal color. Absent: rash Course Vital Signs 05/17/17 05/17/17 05/17/17 13:18 13:28 14:18 Temperature 98.0 F Pulse Rate 91 68 Respiratory 22 20 Rate Blood Pressure 128/72 O2 Sat by Pulse 98 Oximetry 05/17/17 05/17/17 05/17/17 14:21 14:29 15:12 Temperature 97.4 F L Pulse Rate 62 76 66 Respiratory 20 18 Rate Blood Pressure 119/65 106/60 O2 Sat by Pulse 99 96 Oximetry - Reevaluation(s) Reevaluation #1: 05/17/17 15:32 I did a long discussion with the patient regarding smoking cessation and risks and benefits thereof. Told conversation lasted 3.1 minutes. Family members were present. Medical Decision Making - Medical Decision Making Reevaluation patient denies she has increased aeration and is feeling improved the. The presentation is consistent with an asthmatic bronchitis. Due to her long smoking history she likely does have a component of COPD. She'll be placed on appropriate medications she is a follow-up with her doctor return when necessary she was again encouraged to stop smoking. - Lab Data Result diagrams: 05/17/17 14:20 05/17/17 14:20 Lab Results 05/17/17 05/17/17 05/17/17 Range/Units 14:20 14:20 14:20 WBC 10.1 (3.8-10.6) k/uL RBC 4.58 (3.80-5.40) m/uL Hgb 14.1 (11.4-16.0) gm/dL Hct 41.4 (34.0-46.0) % MCV 90.5 (80.0-100.0) fL MCH 30.7 (25.0-35.0) pg MCHC 33.9 (31.0-37.0) g/dL RDW 12.1 (11.5-15.5) % Plt Count 437 (150-450) k/uL Neutrophils % 65 % Lymphocytes % 26 % Monocytes % 5 % Eosinophils % 1 % Basophils % 1 % Neutrophils # 6.6 (1.3-7.7) k/uL Lymphocytes # 2.6 (1.0-4.8) k/uL Monocytes # 0.5 (0-1.0) k/uL Eosinophils # 0.1 (0-0.7) k/uL Basophils # 0.1 (0-0.2) k/uL PT (9.0-12.0) sec INR (<1.2) APTT (22.0-30.0) sec Sodium 140 (137-145) mmol/L Potassium 4.2 (3.5-5.1) mmol/L Chloride 111 H (98-107) mmol/L Carbon Dioxide 20 L (22-30) mmol/L Anion Gap 9 mmol/L BUN 21 H (7-17) mg/dL Creatinine 0.87 (0.52-1.04) mg/dL Est GFR (MDRD) Af Amer >60 (>60 ml/min/1.73 sqM) Est GFR (MDRD) Non-Af >60 (>60 ml/min/1.73 sqM) Glucose 110 H (74-99) mg/dL Calcium 9.6 (8.4-10.2) mg/dL Magnesium 2.1 (1.6-2.3) mg/dL Total Bilirubin 0.4 (0.2-1.3) mg/dL AST 14 (14-36) U/L ALT 22 (9-52) U/L Alkaline Phosphatase 80 (38-126) U/L Total Creatine Kinase 78 (30-135) U/L CK-MB (CK-2) 0.4 (0.0-2.4) ng/mL CK-MB (CK-2) Rel Index 0.5 Troponin I <0.012 (0.000-0.034) ng/mL NT-Pro-B Natriuret Pep pg/mL Total Protein 6.5 (6.3-8.2) g/dL Albumin 3.9 (3.5-5.0) g/dL Influenza Type A RNA (Not Detectd) Influenza Type B (PCR) (Not Detectd) 05/17/17 05/17/17 05/17/17 Range/Units 14:20 14:20 14:20 WBC (3.8-10.6) k/uL RBC (3.80-5.40) m/uL Hgb (11.4-16.0) gm/dL Hct (34.0-46.0) % MCV (80.0-100.0) fL MCH (25.0-35.0) pg MCHC (31.0-37.0) g/dL RDW (11.5-15.5) % Plt Count (150-450) k/uL Neutrophils % % Lymphocytes % % Monocytes % % Eosinophils % % Basophils % % Neutrophils # (1.3-7.7) k/uL Lymphocytes # (1.0-4.8) k/uL Monocytes # (0-1.0) k/uL Eosinophils # (0-0.7) k/uL Basophils # (0-0.2) k/uL PT 10.2 (9.0-12.0) sec INR 1.0 (<1.2) APTT 23.0 (22.0-30.0) sec Sodium (137-145) mmol/L Potassium (3.5-5.1) mmol/L Chloride (98-107) mmol/L Carbon Dioxide (22-30) mmol/L Anion Gap mmol/L BUN (7-17) mg/dL Creatinine (0.52-1.04) mg/dL Est GFR (MDRD) Af Amer (>60 ml/min/1.73 sqM) Est GFR (MDRD) Non-Af (>60 ml/min/1.73 sqM) Glucose (74-99) mg/dL Calcium (8.4-10.2) mg/dL Magnesium (1.6-2.3) mg/dL Total Bilirubin (0.2-1.3) mg/dL AST (14-36) U/L ALT (9-52) U/L Alkaline Phosphatase (38-126) U/L Total Creatine Kinase (30-135) U/L CK-MB (CK-2) (0.0-2.4) ng/mL CK-MB (CK-2) Rel Index Troponin I (0.000-0.034) ng/mL NT-Pro-B Natriuret Pep 59 pg/mL Total Protein (6.3-8.2) g/dL Albumin (3.5-5.0) g/dL Influenza Type A RNA Not Detected (Not Detectd) Influenza Type B (PCR) Not Detected (Not Detectd) - EKG Data -: EKG Interpreted by Me EKG shows normal: sinus rhythm, axis, intervals, QRS complexes, ST-T waves ( Occasional unifocal PVC. The right shows sinus rhythm a 631:30 QRS of 82 QT since QTC of 414/[address]-T wave changes.) - Radiology Data Radiology results: report reviewed (I did review the imaging and reports no acute findings.), image reviewed Disposition Clinical Impression: Asthmatic bronchitis, Acute bronchospasm, Smoking Disposition: HOME SELF-CARE Condition: Good Instructions: Bronchospasm (ED), Acute Bronchitis (ED), How to Stop Smoking (ED ) Prescriptions: Albuterol Inhaler [Ventolin Hfa Inhaler] 2 puff INHALATION Q6HR PRN #1 inhaler PRN Reason: Dyspnea Amoxic-Pot Clav 875-125Mg [Augmentin 875-125] 1 tab PO Q12HR #20 tablet predniSONE 20 mg PO BID #10 tab Referrals: Jarrett Alfaro MD [Primary Care Provider] - 1-2 days
[2017-05-17 14:35] LABS: Basophils # (A) 0.1 k/uL (0-0.2); Basophils % (A) 1 %; CH 31.4; CHCM 34.8; Eosinophils # (A) 0.1 k/uL (0-0.7); Eosinophils % (A) 1 %; HCT 41.4 % (34.0-46.0); HDW 2.52; HGB 14.1 gm/dL (11.4-16.0); Luc # (Auto) 0.23; Luc % (Auto) 2; Lymphocytes # (A) 2.6 k/uL (1.0-4.8); Lymphocytes % (A) 26 %; MCH 30.7 pg (25.0-35.0); MCHC 33.9 g/dL (31.0-37.0); MCV 90.5 fL (80.0-100.0); Mean Platelet Volume 6.7; Monocytes # (A) 0.5 k/uL (0-1.0); Monocytes % (A) 5 %; Neutrophils # (A) 6.6 k/uL (1.3-7.7); Neutrophils % (A) 65 %; RBC 4.58 m/uL (3.80-5.40); RDW 12.1 % (11.5-15.5); WBC 10.1 k/uL (3.8-10.6); WBC (Perox) 10.34
[2017-05-17 14:44] LABS: Prothrombin Time 10.2 sec (9.0-12.0)
[2017-05-17 14:48] LABS: ALT 22 U/L (9-52); AST 14 U/L (14-36); Alkaline Phosphatase 80 U/L (38-126); Anion Gap 9 mmol/L; Blood Urea Nitrogen 21 mg/dL (7-17); Calcium 9.6 mg/dL (8.4-10.2); Carbon Dioxide 20 mmol/L (22-30); Chloride 111 mmol/L (98-107); Glucose 110 mg/dL (74-99); Magnesium 2.1 mg/dL (1.6-2.3); Non-African American GFR(MDRD) >60 (>60 ml/min/1.73 sqM); Potassium 4.2 mmol/L (3.5-5.1); Sodium 140 mmol/L (137-145); Total Bilirubin 0.4 mg/dL (0.2-1.3); Total Protein 6.5 g/dL (6.3-8.2)
[2017-05-17 14:55] LABS: Creatine Kinase 78 U/L (30-135)
--- NOTE | 2017-05-17 15:04 | XR ---
EXAMINATION TYPE: XR chest 2V DATE OF EXAM: 05/17/2017 COMPARISON: 10/12/2016 HISTORY: 62-year-old female with difficulty breathing TECHNIQUE: PA and lateral views FINDINGS: The cardiomediastinal silhouette, aorta, and pulmonary vasculature are within normal limits. Mild int erstitial prominence is unchanged. Strandy atelectasis at the left base. Otherwise, lungs and pleural spaces are clear. IMPRESSION: Strandy basilar atelectasis. Otherwise, no acute cardiopulmonary process.
[2017-05-17 15:08] LABS: Creatine Kinase MB 0.4 ng/mL (0.0-2.4); Troponin I <0.012 ng/mL (0.000-0.034)
[2017-05-17 15:13] VITALS: RESP 18; TEMP 97.4
[2017-05-17 15:58] VITALS: BP 112/60; PULSE 70
== END 2017-05-17 15:58 | disposition home or self-care (01) ==
LOC: EC 13:17
DX: J45.909 Unspecified asthma, uncomplicated (principal); I49.3 Ventricular premature depolarization; M25.512 Pain in left shoulder; E78.5 Hyperlipidemia, unspecified; F17.200 Nicotine dependence, unspecified, uncomplicated; Z79.899 Other long term (current) drug therapy; Z88.5 Allergy status to narcotic agent; Z91.041 Radiographic dye allergy status
CPT/HCPCS: 36415; 94640; 93005; 83880; 80053; 82550; 82553; 83735; 84484; 85025; 85610; 85730; 87040; 87502; 71020; 99284; 96374; 96361 ×2; J2930

== ENCOUNTER → 2018-01-09 | Outpatient (CLI) | payer MEDICARE ==
--- NOTE | 2018-01-13 08:53 | MM ---
Reason for exam: screening (asymptomatic). Last mammogram was performed 1 year and 10 months ago. History: Patient is postmenopausal. Took estrogen beginning at age 52. Physical Findings: A clinical breast exam by your physician is recommended on an annual basis and results should be correlated with mammographic findings. MG 3D Screening Mammo W/Cad Bilateral CC and MLO view(s) were taken. Prior study comparison: March 01, 2016, left breast MG diagnostic mammo LT w CAD. July 31, 2015, left breast MG 3d work up w/cad LT. July 25, 2015, bilateral MG screening mammo w CAD. January 18, 2013, bilateral digital screening mammo w/CAD. There are scattered fibroglandular densities. There is chronic nodularity in the right breast. No significant changes when compared with prior studies. ASSESSMENT: Negative, BI-RAD 1 RECOMMENDATION: Routine screening mammogram of both breasts in 1 year.
== END | disposition home or self-care (01) ==
LOC: RADMAMWWP 12:35
PROVIDERS: ATTEND Family Medicine
DX: Z12.31 Encounter for screening mammogram for malignant neoplasm of breast (principal)
CPT/HCPCS: 77063; 77067

== ENCOUNTER → 2018-05-27 | Outpatient (CLI) | payer MEDICARE | END | disposition home or self-care (01) | LOC: LABWHC1 13:16 | PROVIDERS: ATTEND Psychiatry & Neurology Pain Medicine | DX: Z53.9 Procedure and treatment not carried out, unspecified reason (principal) ==

== ENCOUNTER 2018-05-28 23:43 | Emergency (ER) | payer MEDICARE, OTHER ==
[2018-05-29 00:03] VITALS: RESP 18; TEMP 98
[2018-05-29] MEDS ORDERED: HYDROcodone/APAP 5-325MG 1 EACH TAB PO STA (00:29)
--- NOTE | 2018-05-29 00:29 | ED ---
General Adult HPI - General Chief complaint: Back Pain/Injury Stated complaint: Back pain Source: patient Mode of arrival: wheelchair Limitations: no limitations - History of Present Illness Initial comments: Dictation was produced using [employer] dictation software. please excuse any grammatical, word or spelling errors. Chief Complaint: 63-year-old female past medical history of lumbar surgery presents with back pain radiating to the right hip. History of Present Illness: 63-year-old female with past medical history of lumbar spinal surgery performed at 2011. Patient states she was riding her horse approximately one month ago when the horse had a aggressive truck. She states since that she's been experiencing right-sided hip pain and lower back pain. States that the pain radiates down to her right lower extremity to the toes. Patient denies any constitutional symptoms. Patient states that her neurosurgeon is retired now however she is not sure. Urinary or bowel issues. That on his seizure. The ROS documented in this emergency department record has been reviewed and confirmed by me. Those systems with pertinent positive or negative responses have been documented in the HPI. All other systems are other negative and/or noncontributory. - Related Data Home Medications Medication Instructions Recorded Confirmed Citalopram Hydrobromide [CeleXA] 20 mg PO DAILY 05/17/17 05/17/17 Ibuprofen [Motrin] 800 mg PO Q8H PRN 05/17/17 05/17/17 Lipitor 1 tab PO HS 05/17/17 05/17/17 Previous Rx's Medication Instructions Recorded Albuterol Inhaler [Ventolin Hfa 2 puff INHALATION Q6HR PRN #1 05/17/17 Inhaler] inhaler Amoxic-Pot Clav 875-125Mg 1 tab PO Q12HR #20 tablet 05/17/17 [Augmentin 875-125] predniSONE 20 mg PO BID #10 tab 05/17/17 Allergies Allergy/AdvReac Type Severity Reaction Status Date / Time hydromorphone HCl Allergy Dyspnea Verified 05/29/18 00:03 [From Dilaudid] Iodinated Contrast- Oral and AdvReac Severe Decreased Verified 05/29/18 00:03 IV Dye Blood [Iodinated Contrast Media - Pressure Oral and] Review of Systems ROS Statement: Those systems with pertinent positive or pertinent negative responses have been documented in the HPI. ROS Other: All systems not noted in ROS Statement are negative. Past Medical History Past Medical History: Hyperlipidemia, Pneumonia Additional Past Medical History / Comment(s): irregular heart beat, chronic low back pain, bronchitis, recent UTI completed ABX and urine now clear. History of Any Multi-Drug Resistant Organisms: None Reported Past Surgical History: Appendectomy, Back Surgery, Cholecystectomy, Hysterectomy , Orthopedic Surgery, Tonsillectomy, Tubal Ligation Additional Past Surgical History / Comment(s): Posterior lumbar decompression with fusion L5-S1, plate L wrist, laparoscopy-found tubal infection tx with ABX. Past Anesthesia/Blood Transfusion Reactions: No Reported Reaction Past Psychological History: No Psychological Hx Reported Smoking Status: Current every day smoker Past Alcohol Use History: Rare Past Drug Use History: None Reported - Past Family History Father History Unknown: Yes Family Medical History: No Reported History (She denied much with her father.) Mother Family Medical History: Seizure Disorder (Mother is a 1-year-old has history of seizure and she also has a history of depression.) Additional Family Medical History / Comment(s): Mother is 81 yrs old. She has depression. Brother(s) Family Medical History: No Reported History (Patient has 3 half-brothers no major medical problems.) Sister(s) Family Medical History: No Reported History (Patient has one sister no major medical problem(she carried her from the sperm donor)) Son(s) Family Medical History: No Reported History (Patient has one son major medical problems) Daughter(s) Family Medical History: No Reported History (Patient has one daughter no major medical problems) General Exam - General Exam Comments Initial Comments: PHYSICAL EXAM: General Impression: Alert and oriented x3, acute distress secondary to pain HEENT: Normocephalic atraumatic, extra-ocular movements intact, pupils equal and reactive to light bilaterally, mucous membranes moist. Cardiovascular: Heart regular rate and rhythm, S1&S2 audible, no murmurs, rubs or gallops Chest: Lungs clear to auscultation bilaterally, no rhonchi, no wheeze, no rales Abdomen: Bowel sounds present, abdomen soft, non-tender, non-distended, no organomegaly Musculoskeletal: Pulses present and equal in all extremities, no peripheral edema, tenderness to palpation of the lower back, pain reproduced with flexion of the right hip Motor: Power 5/5 bilaterally, no focal deficits noted Neurological: CN II-XII grossly intact, no focal motor or sensory deficits noted Skin: Intact with no visualized rashes Psych: Normal affect and mood Limitations: no limitations Course Vital Signs 05/29/18 00:01 Temperature 98 F Pulse Rate 83 Respiratory 18 Rate Blood Pressure 106/70 O2 Sat by Pulse 98 Oximetry Medical Decision Making - Medical Decision Making ED course: 63-year-old female presents with chief complaint of back pain. She has a history of spinal evaluation mentation to the lumbar spine as upon arrival are within acceptable limits. Patient is sent out to oncoming physician for follow-up of imaging studies. Patient given by mouth analgesics. Disposition Referrals: Jarrett Alfaro MD [Primary Care Provider] - 1-2 days
--- NOTE | 2018-05-29 01:00 | XR ---
EXAMINATION TYPE: XR pelvis AP view DATE OF EXAM: 05/29/2018 COMPARISON: 07/10/2015 HISTORY: Pain TECHNIQUE: Single view FINDINGS: Pelvic ring is intact. Proximal femurs are intact. There is no evidence of a fracture. Ther e is posterior fusion surgery at L5-S1 noted. Sacroiliac joints appear normal. IMPRESSION: Negative pelvis x-ray exam. No change.
--- NOTE | 2018-05-29 01:08 | CT ---
EXAMINATION TYPE: CT lumbar spine wo con DATE OF EXAM: 05/29/2018 12:51 AM COMPARISON: 05/28/2011 HISTORY: back pain CT DLP: 755 mGycm Automated exposure control for dose reduction was used. Unenhanced CT of the lumbar spine was performed. Bone and soft tissue window settings are submitted as well as coronal and sagittal reconstructions. There are rods and screws fusing posteriorly the lumbar spine at L5-S1. There is disc prosthesis. The re is narrowing of L5-S1 disc space. The other disc spaces are fairly normal. There is no compression fracture. There is normal alignment. There is no lumbar paraspinal mass. There is left side L5 albaro ectomy defect. Sacroiliac joints appear intact. There is no compression fracture. There is a moderate posterior central L4-5 lumbar disc herniation impinging on the spinal canal. This is probably increased compared to old CT scan. There are small posterior disc bulges at L3-4 L1-2 and T11-12. There is posterior right-sided disc bu lging and herniation at T12-L1. IMPRESSION: Posterior fusion surgery at L5-S1. Previous surgery with laminectomy. Moderate posterior L4-5 lumbar disc herniation appears increased compared to old exam. No fracture. There is L4-5 spinal stenosis. M ultilevel levels of posterior disc bulging and herniation as above.
--- NOTE | 2018-05-29 01:28 | ED ---
Medical Decision Making - Medical Decision Making Receive this patient has a sign out, pending the results of imaging studies. On reevaluation, the patient does have some improvement after the medication. She is here to go home. Discussed the imaging results. Patient to have follow- up to ensure symptom resolution. Discussed return parameters. Disposition Clinical Impression: Mechanical back pain Disposition: HOME SELF-CARE Condition: Fair Instructions: Acute Low Back Pain (ED) Prescriptions: Methocarbamol [Robaxin-750] 750 mg PO TID PRN #30 tablet PRN Reason: pain Is patient prescribed a controlled substance at d/c from ED?: No Referrals: Jarrett Alfaro MD [Primary Care Provider] - 1-2 days Yuliya Burnette DO [Doctor of Osteopathic Medicine] - 1-2 days
[2018-05-29 01:56] VITALS: BP 132/85; PULSE 90
== END 2018-05-29 01:35 | disposition home or self-care (01) ==
LOC: EC 23:43
DX: M54.5 Low back pain (principal); M25.551 Pain in right hip; E78.5 Hyperlipidemia, unspecified; F17.200 Nicotine dependence, unspecified, uncomplicated; Z79.899 Other long term (current) drug therapy; Z98.890 Other specified postprocedural states; Z88.5 Allergy status to narcotic agent; Z91.041 Radiographic dye allergy status
CPT/HCPCS: 72131; 72170; 99284

== ENCOUNTER → 2018-05-28 | Outpatient (CLI) | payer MEDICARE ==
[2018-05-28 11:12] LABS: LDL Cholesterol,Calculated 51.8 mg/dL (0.0-131.0); VLDL Calculation 13.2 mg/dL (5.00-40.00)
== END | disposition home or self-care (01) ==
LOC: LABWHC1 06:40
PROVIDERS: ATTEND Psychiatry & Neurology Pain Medicine
DX: I63.9 Cerebral infarction, unspecified (principal)
CPT/HCPCS: 36415; 80061

== ENCOUNTER 2018-09-02 12:53 | Emergency (ER) | payer MEDICARE ==
[2018-09-02] MEDS ORDERED: MORPHINE SULFATE 4 MG/ML SYRINGE IM STA (13:08)
[2018-09-02] MEDS ORDERED: MORPHINE SULFATE 4 MG/ML SYRINGE IVP STA (13:53)
[2018-09-02] MEDS ORDERED: KETOROLAC 30 MG/ML 1 ML VIAL IVP STA (13:53)
--- NOTE | 2018-09-02 14:19 | ED ---
General Adult HPI - General Chief complaint: Back Pain/Injury Stated complaint: back pain Time Seen by Provider: 09/02/18 12:59 Source: patient, EMS, RN notes reviewed Mode of arrival: EMS Limitations: no limitations - History of Present Illness Initial comments: 63-year-old female presents to the emergency department for a chief complaint of right-sided sciatic pain x 6 months. She states the pain has worsened in the past month. Patient states the pain is in her right side lower back and radiates down the right leg all the way to her heel. She states that she sees Dr. Retana for this and takes [place]. Patient states she has an MRI appointment in 2.5 hours but came to the emergency department for pain management. Patient also has an appointment with an orthopedic surgeon tomorrow morning. Patient does admit to a tingling feeling on her buttocks but states this has been consistent for the past several months. Patient denies any bladder or bowel changes. She denies any weakness in the lower extremities. Denies fevers or chills. Patient has no other complaints at this time including shortness of breath, chest pain, abdominal pain, nausea or vomiting, headache, or visual changes. - Related Data Home Medications Medication Instructions Recorded Confirmed Amitriptyline HCl [Elavil] 10 mg PO DAILY 09/02/18 09/02/18 Atorvastatin Calcium [Lipitor] 20 mg PO HS 09/02/18 09/02/18 HYDROcodone/APAP 10-325MG [[place] 1 tab PO Q6HR PRN 09/02/18 09/02/18 10-325] Methocarbamol [Robaxin-750] 750 mg PO BID 09/02/18 09/02/18 Allergies Allergy/AdvReac Type Severity Reaction Status Date / Time hydromorphone HCl Allergy Dyspnea Verified 09/02/18 13:43 [From Dilaudid] Iodinated Contrast- Oral and AdvReac Severe Decreased Verified 09/02/18 13:43 IV Dye Blood [Iodinated Contrast Media - Pressure Oral and] Review of Systems ROS Statement: Those systems with pertinent positive or pertinent negative responses have been documented in the HPI. ROS Other: All systems not noted in ROS Statement are negative. Past Medical History Past Medical History: Hyperlipidemia, Pneumonia Additional Past Medical History / Comment(s): irregular heart beat, chronic low back pain, bronchitis, recent UTI completed ABX and urine now clear. History of Any Multi-Drug Resistant Organisms: None Reported Past Surgical History: Appendectomy, Back Surgery, Cholecystectomy, Hysterectomy, Orthopedic Surgery, Tonsillectomy, Tubal Ligation Additional Past Surgical History / Comment(s): Posterior lumbar decompression with fusion L5-S1, plate L wrist, laparoscopy-found tubal infection tx with ABX. Past Anesthesia/Blood Transfusion Reactions: No Reported Reaction Past Psychological History: No Psychological Hx Reported Smoking Status: Current every day smoker Past Alcohol Use History: Rare Past Drug Use History: None Reported - Past Family History Father History Unknown: Yes Family Medical History: No Reported History (She denied much with her father.) Mother Family Medical History: Seizure Disorder (Mother is a 1-year-old has history of seizure and she also has a history of depression.) Additional Family Medical History / Comment(s): Mother is 81 yrs old. She has depression. Brother(s) Family Medical History: No Reported History (Patient has 3 half-brothers no major medical problems.) Sister(s) Family Medical History: No Reported History (Patient has one sister no major medical problem(she carried her from the sperm donor)) Son(s) Family Medical History: No Reported History (Patient has one son major medical problems) Daughter(s) Family Medical History: No Reported History (Patient has one daughter no major medical problems) General Exam Limitations: no limitations General appearance: alert, in no apparent distress Head exam: Present: atraumatic, normocephalic, normal inspection Eye exam: Present: normal appearance, PERRL, EOMI. Absent: scleral icterus, conjunctival injection, periorbital swelling ENT exam: Present: normal exam, mucous membranes moist Neck exam: Present: normal inspection, full ROM. Absent: tenderness, meningismus, lymphadenopathy, thyromegaly Respiratory exam: Present: normal lung sounds bilaterally. Absent: respiratory distress, wheezes, rales, rhonchi, stridor Cardiovascular Exam: Present: regular rate, normal rhythm, normal heart sounds. Absent: systolic murmur, diastolic murmur, rubs, gallop, clicks GI/Abdominal exam: Present: soft, normal bowel sounds. Absent: distended, tenderness, guarding, rebound, rigid Rectal exam: Present: normal inspection, normal rectal tone Extremities exam: Present: tenderness (Tenderness noted in the right sciatic notch), normal capillary refill (Capillary refill less than 2 seconds, DP pulse 2+ in the right lower extremity and equal bilaterally. Sensation intact in the right lower extremity.), other (sensation intact in the RLE). Absent: calf tenderness (Erythema edema in the right lower extremity. Negative Homans sign.) Back exam: Present: vertebral tenderness (Minimal lumbar tenderness noted.). Absent: CVA tenderness (R), CVA tenderness (L) Neurological exam: Present: alert, oriented X3, CN II-XII intact Psychiatric exam: Present: normal affect, normal mood Course Vital Signs 09/02/18 12:55 Temperature 97.2 F L Pulse Rate 84 Respiratory 18 Rate Blood Pressure 123/70 O2 Sat by Pulse 96 Oximetry Medical Decision Making - Medical Decision Making 63-year-old female presents to the emergency department for a chief complaint of back pain radiating into the right leg. Patient states she has had this pain for 6 months but has worsened in the past month or so. Patient denies bladder or bowel changes. Patient does admit to some paresthesias in the buttock area but does have sensation here. This has been consistent for several months. Rectal tone is intact. Patient has an MRI scheduled in 2 hours and would like pain management for this. I did give patient an IM shot of morphine which helped her pain somewhat. Patient then received Toradol. Patient states pain is better when resting but still hurts when she moves. I offered patient an IV was morphine which she refuses at this time. States she does not want another poke and would rather go straight to her MRI appointment. Patient also has an appointment with an orthopedic surgeon tomorrow morning that she will attend. She takes [place] at home and sees Dr. Retana. She will return to the nearest ER if she has any worsening symptoms. Disposition Clinical Impression: Back pain, Sciatic leg pain Disposition: HOME SELF-CARE Condition: Good Instructions (If sedation given, give patient instructions): Acute Low Back Pain (ED), Chronic Back Pain (ED) Additional Instructions: Please go directly to your MRI appointment. Do not drive or operate machinery as you received morphine. Please go to your appointment tomorrow morning with your orthopedic surgeon. Return to the nearest emergency department if you have worsening symptoms or unable to urinate Is patient prescribed a controlled substance at d/c from ED?: No Referrals: Jarrett Alfaro MD [Primary Care Provider] - 1-2 days Time of Disposition: 14:18
[2018-09-02 14:49] VITALS: BP 107/66; PULSE 72; RESP 16; TEMP 97.1
== END 2018-09-02 14:49 | disposition home or self-care (01) ==
LOC: EC 12:53
DX: M54.41 Lumbago with sciatica, right side (principal); E78.5 Hyperlipidemia, unspecified; G89.29 Other chronic pain; F17.200 Nicotine dependence, unspecified, uncomplicated; Z88.5 Allergy status to narcotic agent; Z91.041 Radiographic dye allergy status; Z79.899 Other long term (current) drug therapy; Z98.1 Arthrodesis status; Z53.8 Procedure and treatment not carried out for other reasons
CPT/HCPCS: 96372; 96374; 99283

== ENCOUNTER → 2019-08-20 | Outpatient (CLI) | payer MEDICARE ==
--- NOTE | 2019-08-20 14:52 | BD ---
EXAMINATION TYPE: Axial Bone Density DATE OF EXAM: 08/20/2019 COMPARISON: 01.18.2013 CLINICAL HISTORY: 64 YR OLD FEMALE ICD-10 CODE: Z78.0 POST MENOPAUSAL Height: 64.2 Weight: 166 FRAX RISK QUESTIONS: Glucocorticoids (More than 3mos): NOT REGULARLY (Ex: prednisone, prednisolone, methylprednisolone, dexamethasone, and hydrocortisone). History of Fracture in Adulthood: YES Secondary Osteoporosis: YES 3. Menopause before 45: YES Current Tobacco Use: QUIT, 1 YR AGO RISK FACTORS HISTORY OF: History of Wrist Fracture: YES, LEFT WRIST 2004, > 49 YRS OLD Surgery to Spine SURGICAL REPAIR, WITH CAGE AND HARDWARE 2018 Family History of Osteoporosis: UNSURE Postmenopausal woman: YES. ABOUT AGE 37 YRS OLD, HYST Take estrogen and/or progesterone medications: YES, IN THE PAST FOR ABOUT 1 YR Lost more than 2 inches in height since high school: YES Hyperparathyroidism: NO Adrenal Insufficiency: NO MEDICATIONS: Prednisone or other steroids: YES, FOR ILLNESS AND PAIN ON AND OFF Additional Medications: STATIN FOR CHOLESTEROL, Additional History: OSTEOARTHRITIS, HERNIATED DISCS IN SPINE, CHOLESTEROL EXAM MEASUREMENTS: Bone mineral densitometry was performed using the [employer] System. Bone mineral density as measured about the Lumbar spine is: SPIN NOT SCANNED, SURGICAL REPAIR WITH HARDWARE Bone mineral density about the R hip (g/cm2): 0.981 Bone mineral density about the L hip (g/cm2): 0.937 T Score values are as follows: -----R Neck: -0.7 -----L Neck: -0.9 -----R Total: -0.2 -----L Total: -0.6 Bone mineral density has: Increased 2.8% SINCE 01.18.2013 FRAX%s: THERE IS A 12.9% CHANCE FOR A MAJOR OSTEOPOROTIC FX AND A 1.6% FOR HIP......PROBABILITY FOR FX IN 10 YRS TIME Bone mineral density about the R Wrist (g/cm2): 0.623 T Score values are as follows: -----Dist. R+U: 0.2 -----Prox. R+U: -1.4 -----Radius total: -0.9 Bone mineral density FIRST SCAN OF THE WRIST IMPRESSION: Osteopenia (T Score between -2.5 and -1). There is slightly increased risk of fracture and the patient may be considered for treatment. Re-Screen 2-5 years. NOTE: T-SCORE=SD OF THE YOUNG ADULT MEAN.
--- NOTE | 2019-08-23 10:56 | MM ---
Reason for exam: screening (asymptomatic). Last mammogram was performed 1 year and 7 months ago. History: Patient is postmenopausal and history of other cancer. Took hormonal contraceptives for 2 years. Took estrogen beginning at age 52. Physical Findings: A clinical breast exam by your physician is recommended on an annual basis and results should be correlated with mammographic findings. MG 3D Screening Mammo W/Cad Bilateral CC and MLO view(s) were taken. Prior study comparison: January 09, 2018, bilateral MG 3d screening mammo w/cad. March 01, 2016, left breast MG diagnostic mammo LT w CAD. There are scattered fibroglandular densities. There is chronic nodularity in the left breast. There is no new dominant lesion. ASSESSMENT: Benign, BI-RAD 2 RECOMMENDATION: Routine screening mammogram of both breasts in 1 year.
== END | disposition home or self-care (01) ==
LOC: RADMAMWWP 13:27
PROVIDERS: ATTEND Family Medicine
DX: Z12.31 Encounter for screening mammogram for malignant neoplasm of breast (principal); M85.80 Other specified disorders of bone density and structure, unspecified site; Z78.0 Asymptomatic menopausal state
CPT/HCPCS: 77063; 77067; 77080

== ENCOUNTER → 2020-12-29 | Outpatient (CLI) | payer MEDICARE ==
--- NOTE | 2021-01-02 11:14 | MM ---
Reason for exam: screening (asymptomatic). Last mammogram was performed 1 year and 4 months ago. History: Patient is postmenopausal and history of other cancer. Took hormonal contraceptives for 2 years. Took estrogen beginning at age 52. Physical Findings: A clinical breast exam by your physician is recommended on an annual basis and results should be correlated with mammographic findings. MG 3D Screening Mammo W/Cad Bilateral CC and MLO view(s) were taken. Prior study comparison: August 20, 2019, bilateral MG 3d screening mammo w/cad. January 09, 2018, bilateral MG 3d screening mammo w/cad. There are scattered fibroglandular densities. There is no discrete abnormality. No significant changes when compared with prior studies. ASSESSMENT: Negative, BI-RAD 1 RECOMMENDATION: Routine screening mammogram of both breasts in 1 year.
== END | disposition home or self-care (01) ==
LOC: RADMAMWWP 16:18
PROVIDERS: ATTEND Family Medicine
DX: Z12.31 Encounter for screening mammogram for malignant neoplasm of breast (principal); Z78.0 Asymptomatic menopausal state; Z85.3 Personal history of malignant neoplasm of breast; Z79.3 Long term (current) use of hormonal contraceptives
CPT/HCPCS: 77063; 77067

== ENCOUNTER → 2022-01-15 | Outpatient (CLI) | payer MEDICARE ==
--- NOTE | 2022-01-16 17:59 | MM ---
Reason for Exam: Screening (asymptomatic). Last screening mammogram was performed 12 month(s) ago. Patient History: Menarche at age 12. First Full-Term at age 18. Left ovary removed at age 40. Hysterectomy at age 40. Postmenopausal. Other cancer. Estrogen, from age 52 until age 52. Patient used Hormonal Contraceptives for 2 years. Risk Values: Elizabeth 5 year model risk: 1.2%. NCI Lifetime model risk: 4.2%. Prior Study Comparison: 01/09/2018 Bilateral Screening Mammogram, [facility]. 08/20/2019 Bilateral Screening Mammogram, [facility]. 12/29/2020 Bilateral Screening Mammogram, [facility]. Tissue Density: There are scattered fibroglandular densities. Findings: Analyzed By CAD. There is no suspicious group of microcalcifications or new suspicious mass in either breast. No significant change prior examinations. Overall Assessment: Negative, BI-RAD 1 Management: Screening Mammogram of both breasts in 1 year. A clinical breast exam by your physician is recommended on an annual basis and results should be correlated with mammographic findings. Electronically signed and approved by: Louis Moore D.O.
== END | disposition home or self-care (01) ==
LOC: RADMAMWWP 14:30
PROVIDERS: ATTEND Family Medicine
DX: Z12.31 Encounter for screening mammogram for malignant neoplasm of breast (principal); Z78.0 Asymptomatic menopausal state
CPT/HCPCS: 77063; 77067

== ENCOUNTER 2022-03-12 12:06 | Emergency (ER) | payer MEDICARE ==
[2022-03-12] MEDS ORDERED: SODIUM CHLORIDE 0.9% 1,000 ML IV STA (14:05)
[2022-03-12] MEDS ORDERED: KETOROLAC 15 MG/ML 1 ML VIAL IVP STA (14:05)
[2022-03-12] MEDS ORDERED: ORPHENADRINE 30 MG/ML 2 ML VIAL IVP STA (14:06)
[2022-03-12 14:19] VITALS: RESP 18
--- NOTE | 2022-03-12 14:23 | ED ---
Abdominal Pain HPI - General Chief Complaint: Abdominal Pain Stated Complaint: rt sided abd pain Time Seen by Provider: 03/12/22 13:59 Source: patient, RN notes reviewed Mode of arrival: ambulatory Limitations: no limitations - History of Present Illness Initial Comments: This a 67-year-old female presents emergency Department with chief complaint of right flank pain. Patient states that week worth of right flank pain worse with movement. Denies any trauma. She initially possible muscle but does not seem to be improving. She does know some urinary frequency. Denies any fevers or chills denies any recent abdominal procedure she does not showed a prior cholecystomy, appendectomy no chest pain or shortness of breath no rashes noted. - Related Data Home Medications Medication Instructions Recorded Confirmed Amitriptyline HCl [Elavil] 10 mg PO DAILY 09/02/18 09/02/18 Atorvastatin Calcium [Lipitor] 20 mg PO HS 09/02/18 09/02/18 HYDROcodone/APAP 10-325MG [[place] 1 tab PO Q6HR PRN 09/02/18 09/02/18 10-325] methocarbamoL [Robaxin-750] 750 mg PO BID 09/02/18 09/02/18 Previous Rx's Medication Instructions Recorded methocarbamoL [Robaxin] 500 mg PO TID PRN #15 tab 03/12/22 Allergies Allergy/AdvReac Type Severity Reaction Status Date / Time hydromorphone HCl Allergy Dyspnea Verified 03/12/22 12:18 [From Dilaudid] Iodinated Contrast Media AdvReac Severe Decreased Verified 03/12/22 12:18 [Iodinated Contrast Media - Blood Oral and] Pressure Review of Systems ROS Statement: Those systems with pertinent positive or pertinent negative responses have been documented in the HPI. ROS Other: All systems not noted in ROS Statement are negative. Past Medical History Past Medical History: Hyperlipidemia, Pneumonia Additional Past Medical History / Comment(s): irregular heart beat, chronic low back pain, bronchitis, recent UTI completed ABX and urine now clear. History of Any Multi-Drug Resistant Organisms: None Reported Past Surgical History: Appendectomy, Back Surgery, Cholecystectomy, Hysterectomy, Orthopedic Surgery, Tonsillectomy, Tubal Ligation Additional Past Surgical History / Comment(s): Posterior lumbar decompression with fusion L5-S1, plate L wrist, laparoscopy-found tubal infection tx with ABX. Past Anesthesia/Blood Transfusion Reactions: No Reported Reaction Past Psychological History: No Psychological Hx Reported Smoking Status: Current every day smoker Past Alcohol Use History: Rare Past Drug Use History: None Reported - Past Family History Father History Unknown: Yes Family Medical History: No Reported History (She denied much with her father.) Mother Family Medical History: Seizure Disorder (Mother is a 1-year-old has history of seizure and she also has a history of depression.) Additional Family Medical History / Comment(s): Mother is 81 yrs old. She has depression. Brother(s) Family Medical History: No Reported History (Patient has 3 half-brothers no major medical problems.) Sister(s) Family Medical History: No Reported History (Patient has one sister no major medical problem(she carried her from the sperm donor)) Son(s) Family Medical History: No Reported History (Patient has one son major medical problems) Daughter(s) Family Medical History: No Reported History (Patient has one daughter no major medical problems) General Exam Limitations: no limitations General appearance: alert, in no apparent distress Head exam: Present: atraumatic, normocephalic, normal inspection Eye exam: Present: normal appearance, PERRL, EOMI. Absent: scleral icterus, con junctival injection, periorbital swelling ENT exam: Present: normal exam, normal oropharynx, mucous membranes moist Neck exam: Present: normal inspection, full ROM. Absent: tenderness, meningismus, lymphadenopathy Respiratory exam: Present: normal lung sounds bilaterally. Absent: respiratory distress, wheezes, rales, rhonchi, stridor, chest wall tenderness Cardiovascular Exam: Present: regular rate, normal rhythm, normal heart sounds. Absent: systolic murmur, diastolic murmur, rubs, gallop, clicks GI/Abdominal exam: Present: soft, tenderness, normal bowel sounds. Absent: distended, guarding, rebound, rigid Back exam: Present: CVA tenderness (R). Absent: CVA tenderness (L) Neurological exam: Present: alert Skin exam: Present: warm, dry, intact, normal color. Absent: rash Course Vital Signs 03/12/22 03/12/22 12:16 14:15 Temperature 98.1 F Pulse Rate 77 66 Respiratory 20 18 Rate Blood Pressure 120/61 122/65 O2 Sat by Pulse 98 98 Oximetry Medical Decision Making - Medical Decision Making 59-year-old female presented for right-sided flank pain, pain with range of motion which patient believes she has pulled muscle. Patient therefore concluded labs urinalysis and CT with no acute findings. Patient pain is improved after workup, Norflex. Patient discharged with Flexeril 5 mg patient will continue heat and ice to the stretching return parameters were discussed. - Lab Data Result diagrams: 03/12/22 14:19 03/12/22 14:19 Lab Results 03/12/22 03/12/22 03/12/22 Range/Units 14:19 14:19 14:19 WBC 9.2 (3.8-10.6) k/uL RBC 4.69 (3.80-5.40) m/uL Hgb 14.4 (11.4-16.0) gm/dL Hct 43.2 (34.0-46.0) % MCV 92.1 (80.0-100.0) fL MCH 30.7 (25.0-35.0) pg MCHC 33.4 (31.0-37.0) g/dL RDW 13.1 (11.5-15.5) % Plt Count 412 (150-450) k/uL MPV 6.9 Neutrophils % 55 % Lymphocytes % 34 % Monocytes % 6 % Eosinophils % 2 % Basophils % 1 % Neutrophils # 5.1 (1.3-7.7) k/uL Lymphocytes # 3.1 (1.0-4.8) k/uL Monocytes # 0.6 (0-1.0) k/uL Eosinophils # 0.2 (0-0.7) k/uL Basophils # 0.1 (0-0.2) k/uL Sodium 142 (137-145) mmol/L Potassium 4.1 (3.5-5.1) mmol/L Chloride 109 H (98-107) mmol/L Carbon Dioxide 22 (22-30) mmol/L Anion Gap 11 mmol/L BUN 21 H (7-17) mg/dL Creatinine 0.82 (0.52-1.04) mg/dL Est GFR (CKD-EPI)AfAm 85 (>60 ml/min/1.73 sqM) Est GFR (CKD-EPI)NonAf 74 (>60 ml/min/1.73 sqM) Glucose 90 (74-99) mg/dL Plasma Lactic Acid Jay (0.7-2.0) mmol/L Calcium 9.4 (8.4-10.2) mg/dL Total Bilirubin 0.5 (0.2-1.3) mg/dL AST 20 (14-36) U/L ALT 16 (4-34) U/L Alkaline Phosphatase 102 (38-126) U/L Total Protein 7.1 (6.3-8.2) g/dL Albumin 4.5 (3.5-5.0) g/dL Amylase 63 (30-110) U/L Lipase 65 (23-300) U/L Urine Color Yellow Urine Appearance Cloudy H (Clear) Urine pH 5.0 (5.0-8.0) Ur Specific [place] 1.027 (1.001-1.035) Urine Protein Trace H (Negative) Urine Glucose (UA) Negative (Negative) Urine Ketones Negative (Negative) Urine Blood Negative (Negative) Urine Nitrite Negative (Negative) Urine Bilirubin Negative (Negative) Urine Urobilinogen <2.0 (<2.0) mg/dL Ur Leukocyte Esterase Negative (Negative) Urine RBC 6 H (0-5) /hpf Urine WBC 1 (0-5) /hpf Ur Squamous Epith Cells 13 H (0-4) /hpf Urine Bacteria Rare H (None) /hpf Urine Mucus Many H (None) /hpf 03/12/22 Range/Units 14:19 WBC (3.8-10.6) k/uL RBC (3.80-5.40) m/uL Hgb (11.4-16.0) gm/dL Hct (34.0-46.0) % MCV (80.0-100.0) fL MCH (25.0-35.0) pg MCHC (31.0-37.0) g/dL RDW (11.5-15.5) % Plt Count (150-450) k/uL MPV Neutrophils % % Lymphocytes % % Monocytes % % Eosinophils % % Basophils % % Neutrophils # (1.3-7.7) k/uL Lymphocytes # (1.0-4.8) k/uL Monocytes # (0-1.0) k/uL Eosinophils # (0-0.7) k/uL Basophils # (0-0.2) k/uL Sodium (137-145) mmol/L Potassium (3.5-5.1) mmol/L Chloride (98-107) mmol/L Carbon Dioxide (22-30) mmol/L Anion Gap mmol/L BUN (7-17) mg/dL Creatinine (0.52-1.04) mg/dL Est GFR (CKD-EPI)AfAm (>60 ml/min/1.73 sqM) Est GFR (CKD-EPI)NonAf (>60 ml/min/1.73 sqM) Glucose (74-99) mg/dL Plasma Lactic Acid Jay 1.1 (0.7-2.0) mmol/L Calcium (8.4-10.2) mg/dL Total Bilirubin (0.2-1.3) mg/dL AST (14-36) U/L ALT (4-34) U/L Alkaline Phosphatase (38-126) U/L Total Protein (6.3-8.2) g/dL Albumin (3.5-5.0) g/dL Amylase (30-110) U/L Lipase (23-300) U/L Urine Color Urine Appearance (Clear) Urine pH (5.0-8.0) Ur Specific [place] (1.001-1.035) Urine Protein (Negative) Urine Glucose (UA) (Negative) Urine Ketones (Negative) Urine Blood (Negative) Urine Nitrite (Negative) Urine Bilirubin (Negative) Urine Urobilinogen (<2.0) mg/dL Ur Leukocyte Esterase (Negative) Urine RBC (0-5) /hpf Urine WBC (0-5) /hpf Ur Squamous Epith Cells (0-4) /hpf Urine Bacteria (None) /hpf Urine Mucus (None) /hpf Disposition Clinical Impression: Right flank pain, Back strain Disposition: HOME SELF-CARE Condition: Stable Instructions (If sedation given, give patient instructions): Flank Pain (ED), Back Pain (ED) Additional Instructions: Please return to the Emergency Department if symptoms worsen or any other concerns. Prescriptions: methocarbamoL [Robaxin] 500 mg PO TID PRN #15 tab PRN Reason: muscle spasms Is patient prescribed a controlled substance at d/c from ED?: No Referrals: Jarrett Alfaro MD [Primary Care Provider] - 1-2 days Time of Disposition: 16:07
[2022-03-12 14:28] LABS: Basophils # (A) 0.1 k/uL (0-0.2); Basophils % (A) 1 %; Eosinophils # (A) 0.2 k/uL (0-0.7); Eosinophils % (A) 2 %; HCT 43.2 % (34.0-46.0); HGB 14.4 gm/dL (11.4-16.0); Lymphocytes # (A) 3.1 k/uL (1.0-4.8); Lymphocytes % (A) 34 %; MCH 30.7 pg (25.0-35.0); MCHC 33.4 g/dL (31.0-37.0); MCV 92.1 fL (80.0-100.0); Mean Platelet Volume 6.9; Monocytes # (A) 0.6 k/uL (0-1.0); Monocytes % (A) 6 %; Neutrophils # (A) 5.1 k/uL (1.3-7.7); Neutrophils % (A) 55 %; Platelet Count 412 k/uL (150-450); RBC 4.69 m/uL (3.80-5.40); RDW 13.1 % (11.5-15.5); WBC 9.2 k/uL (3.8-10.6)
[2022-03-12 14:46] LABS: Albumin 4.5 g/dL (3.5-5.0); Calcium 9.4 mg/dL (8.4-10.2); Potassium 4.1 mmol/L (3.5-5.1); Total Bilirubin 0.5 mg/dL (0.2-1.3); Total Protein 7.1 g/dL (6.3-8.2)
[2022-03-12 14:50] LABS: Appearance,Urine Cloudy (Clear); Bacteria,Urine Rare /hpf; Bilirubin,Urine Negative (Negative); Blood,Urine Negative (Negative); Color,Urine Yellow; Glucose,Urine (UA) Negative (Negative); Ketones,Urine Negative (Negative); Leukocyte Esterase,Urine Negative (Negative); Mucus,Urine Many /hpf; Nitrite,Urine Negative (Negative); Protein,Urine Trace (Negative); RBC,Urine 6 /hpf (0-5); Specific Gravity,Urine 1.027 (1.001-1.035); Squamous Epithelial Cell,Urine 13 /hpf (0-4); Urobilinogen,Urine <2.0 mg/dL (<2.0); WBC,Urine 1 /hpf (0-5)
--- NOTE | 2022-03-12 16:04 | CT ---
EXAMINATION TYPE: CT abdomen pelvis wo con CT DLP: 661.8 mGycm, Automated exposure control for dose reduction was used. DATE OF EXAM: 03/12/2022 3:40 PM COMPARISON: No direct comparisons. CLINICAL INDICATION:Female, 67 years old with history of right flank pain; TECHNIQUE: Standard CT of the abdomen and pelvis without IV or oral contrast. Lack of IV or oral co ntrast limits evaluation of solid and hollow organ viscera. Coronal and sagittal reformats were perfo rmed. FINDINGS: LOWER CHEST: Bibasilar subsegmental atelectasis. ABDOMEN LIVER: Multiple low attenuating lesions are demonstrated throughout the liver with largest in the lef t hepatic lobe measuring up to 3.9 cm consistent with a cyst. Additional low attenuation lesions are too small to characterize but are favored represent cysts. GALLBLADDER AND BILE DUCTS: The gallbladder is surgically absent. No biliary ductal dilatation. PANCREAS: Unremarkable noncontrast appearance. SPLEEN: Unremarkable noncontrast appearance. ADRENAL GLANDS: Unremarkable noncontrast appearance. KIDNEYS AND URETERS: No hydronephrosis or renal calculi. No ureteral calculi. 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 No perinephric fluid collections or fat stranding. PELVIS BLADDER: Incompletely distended but grossly unremarkable. REPRODUCTIVE: The uterus is surgically absent. No suspicious adnexal mass. ABDOMEN & PELVIS STOMACH AND BOWEL: Small hiatal hernia, duodenum is unremarkable. Pancolonic diverticulosis without e vidence for acute diverticulitis. The appendix is not visualized however there is no significant infl ammatory changes within the right lower quadrant. No evidence of bowel obstruction. PERITONEUM: No evidence of pneumoperitoneum or free fluid. VASCULATURE: Mild atherosclerotic calcifications are present throughout the abdominal aorta and its b ranches. No evidence of aortic aneurysm. MUSCULOSKELETAL: No acute osseous abnormalities. Postsurgical changes from lumbar fusion involving L4 -S1 with disc spacers. This creates streak artifact limiting evaluation. LYMPH NODES: No gross evidence for lymphadenopathy. SOFT TISSUE/ABDOMINAL WALL: Unremarkable IMPRESSION: 1. No acute abdominal/pelvic process within the limitations of a noncontrast exam. 2. Pancolonic diverticulosis without evidence for acute diverticulitis.
[2022-03-12 16:22] VITALS: BP 123/70; PULSE 61; TEMP 97.4
== END 2022-03-12 16:21 | disposition home or self-care (01) ==
LOC: EC 12:06
DX: R10.9 Unspecified abdominal pain (principal); M54.50 Low back pain, unspecified; E78.5 Hyperlipidemia, unspecified; F17.200 Nicotine dependence, unspecified, uncomplicated; Z91.041 Radiographic dye allergy status; Z88.5 Allergy status to narcotic agent
CPT/HCPCS: 36415; 80053; 82150; 83605; 83690; 85025; 81001; 74176; 99284; 96374; 96375; 96361; J2360; J1885

== ENCOUNTER 2022-09-21 12:14 | Emergency (ER) | payer MEDICARE ==
--- NOTE | 2022-09-21 12:46 | ED ---
Chest Pain HPI - General Chief Complaint: Chest Pain Stated Complaint: Chest Pain Time Seen by Provider: 09/21/22 12:25 Source: patient, RN notes reviewed, old records reviewed Mode of arrival: ambulatory Limitations: no limitations - History of Present Illness Initial Comments: This is a 67-year-old female to the emergency department for evaluation. P fatoumata Bello for evaluation regards to chest pain or chest discomfort fatigue and weakness for the last few days. Maybe even into the last week. Patient has a history of smoking states that she is Bensel rundown that she's only had one cigarette today no shortness of breath she has some numbness and tingling down her left arm. Patient is on a cholesterol pill for possible TIA she has had in the past but does not take any other medications no high blood pressure and no known history of high cholesterol no diabetes and no significant family history of heart disease. MD Complaint: chest pain, other (Left arm numbness and tingling, fatigue) -: days(s) Onset: during rest Pain Location: substernal, left chest Pain Radiation: LUE Severity: mild Severity scale (1-10): 3 Quality: tightness Consistency: intermittent Improves With: nothing Worsens With: nothing Anginal Symptoms: dyspnea (Patient does have history of smoking) Other Symptoms: palpitations Treatments Prior to Arrival: none - Related Data Home Medications Medication Instructions Recorded Confirmed Atorvastatin [Lipitor] 10 mg PO DAILY 09/21/22 09/21/22 Allergies Allergy/AdvReac Type Severity Reaction Status Date / Time hydromorphone HCl Allergy Dyspnea Verified 09/21/22 13:52 [From Dilaudid] Iodinated Contrast Media AdvReac Severe Decreased Verified 09/21/22 13:52 [Iodinated Contrast Media - Blood Oral and] Pressure Review of Systems ROS Statement: Those systems with pertinent positive or pertinent negative responses have been documented in the HPI. ROS Other: All systems not noted in ROS Statement are negative. EKG Findings - EKG Comments: EKG Findings:: EKG interpreted by me as sinus rhythm 71 MO 139 QRS 89 QTc 402 Past Medical History Past Medical History: Hyperlipidemia, Pneumonia Additional Past Medical History / Comment(s): irregular heart beat, chronic low back pain, bronchitis, recent UTI completed ABX and urine now clear. History of Any Multi-Drug Resistant Organisms: None Reported Past Surgical History: Appendectomy, Back Surgery, Cholecystectomy, Hysterectomy, Orthopedic Surgery, Tonsillectomy, Tubal Ligation Additional Past Surgical History / Comment(s): Posterior lumbar decompression with fusion L5-S1, plate L wrist, laparoscopy-found tubal infection tx with ABX. Past Anesthesia/Blood Transfusion Reactions: No Reported Reaction Past Psychological History: No Psychological Hx Reported Smoking Status: Current every day smoker Past Alcohol Use History: Rare Past Drug Use History: None Reported - Past Family History Father History Unknown: Yes Family Medical History: No Reported History (She denied much with her father.) Mother Family Medical History: Seizure Disorder (Mother is a 1-year-old has history of seizure and she also has a history of depression.) Additional Family Medical History / Comment(s): Mother is 81 yrs old. She has depression. Brother(s) Family Medical History: No Reported History (Patient has 3 half-brothers no major medical problems.) Sister(s) Family Medical History: No Reported History (Patient has one sister no major medical problem(she carried her from the sperm donor)) Son(s) Family Medical History: No Reported History (Patient has one son major medical problems) Daughter(s) Family Medical History: No Reported History (Patient has one daughter no major medical problems) General Exam Limitations: no limitations General appearance: alert, in no apparent distress, cachectic, other (Dehy dration, cachectic, daily smoker) Head exam: Present: atraumatic, normocephalic, normal inspection Eye exam: Present: normal appearance, PERRL, EOMI. Absent: scleral icterus, conjunctival injection, periorbital swelling ENT exam: Present: normal exam, mucous membranes moist Neck exam: Present: normal inspection. Absent: tenderness, meningismus, lymphadenopathy Respiratory exam: Present: normal lung sounds bilaterally. Absent: respiratory distress, wheezes, rales, rhonchi, stridor Cardiovascular Exam: Present: regular rate, normal rhythm, normal heart sounds. Absent: systolic murmur, diastolic murmur, rubs, gallop, clicks GI/Abdominal exam: Present: soft, normal bowel sounds. Absent: distended, tenderness, guarding, rebound, rigid Extremities exam: Present: normal inspection, full ROM, normal capillary refill. Absent: tenderness, pedal edema, joint swelling, calf tenderness Back exam: Present: normal inspection Neurological exam: Present: alert, oriented X3, CN II-XII intact Psychiatric exam: Present: normal affect, normal mood Skin exam: Present: warm, dry, intact, normal color. Absent: rash Course Vital Signs 09/21/22 09/21/22 12:17 12:45 Temperature 98.2 F Pulse Rate 85 62 Respiratory 16 17 Rate Blood Pressure 120/75 117/74 O2 Sat by Pulse 95 94 L Oximetry - Reevaluation(s) Reevaluation #1: 09/21/22 13:58 Medical records reviewed Reevaluation #2: 09/21/22 13:58 patient informed results questions answered patient doesn't feel improved here in the ER Reevaluation #3: 09/21/22 13:58 Spoke patient length, she will prefer follow-up with personalized living manager at home, no current chest pain she does state that she feels mildly improved while sitting here in the emergency department no shortness of breath, patient is adamant against being under observation status here in the ER, and like discharge home Reevaluation #4: 09/21/22 13:58 Was pt. sent in by a medical professional or institution? @ -no Did you speak to anyone other than the patient for history? @ -paitents at beside Did you review nursing and triage notes? @ -agree Were old charts reviewed? @ -prior admissions and ER evaluaions are reviewed Differential Diagnosis? @ -CP EKG interpreted by me (3pts min.)? @ -yes X-rays interpreted by me (1pt min.)? @ -yes CT interpreted by me (1pt min.)? @ -no U/S interpreted by me (1pt. min.)? @ -no What testing was considered but not performed? (CT, X-rays, U/S, labs)? Why? @ -no What meds were considered but not given? Why? @ -no patient with no current complaints Did you discuss the management of the patient with other professionals? @ -no Did you reconcile home meds? @ -no Was smoking cessation discussed for >3mins.? @ -yes Was critical care preformed (if so, how long)? @ -no Were there social determinants of health that impacted care today? How? (Homelessness, low income, unemployed, alcoholism, drug addiction, transportation, low edu. Level, literacy, decrease access to med. care, halfway, rehab)? @ -no Was there de-escalation of care discussed even if they declined? (Discuss DNR or withdrawal of care, Hospice)? @ -no What co-morbidities impacted this encounter? (DM, HTN, Smoking, COPD, CAD, Cancer, CVA, Hep., AIDS, mental health diagnosis, sleep apnea, morbid obesity)? @ -none Was patient admitted / discharged? @ -DC Undiagnosed new problem with uncertain prognosis? @ -multiple falls history of, R elbow abrasion Drug Therapy requiring intensive monitoring for toxicity (Heparin, Nitro, Insulin, Cardizem)? @ -no Were any procedures done? @ -no Diagnosis/symptom? @ -CP Acute, or Chronic, or Acute on Chronic? @ -acute Uncomplicated (without systemic symptoms) or Complicated (systemic symptoms)? @ -uncompicated Side effects of treatment? @ -none Exacerbation, Progression, or Severe Exacerbation] @ -no Poses a threat to life or bodily function? @ -if in AC yes, patient low risk, asymptomatic currently Reevaluation #5: 09/21/22 14:00 Differential Chest Pain: Stable Angina, Unstable Angina, STEMI, NSTEMI Aortic Dissection, Pneumothorax, Musculoskeletal, Esophageal Spasm GERD, Cholecystitis, Pancreatitis, Zoster, this is not meant to be an all-inclusive list. Chest Pain MDM - MDM 67 female was for heart disease, no significant risk factors outside of smoking, prefer outpatient follow-up at this time, normal EKG negative troponin can be discharged home Disposition Clinical Impression: Chest pain Disposition: HOME SELF-CARE Condition: Good Instructions (If sedation given, give patient instructions): Chest Pain (ED) Is patient prescribed a controlled substance at d/c from ED?: No Referrals: Jarrett Alfaro MD [Primary Care Provider] - 1-2 days Time of Disposition: 02:00
[2022-09-21 12:47] LABS: Basophils % (A) 1 %; Eosinophils # (A) 0.1 k/uL (0-0.7); Eosinophils % (A) 2 %; HCT 41.8 % (34.0-46.0); HGB 14.3 gm/dL (11.4-16.0); Lymphocytes # (A) 1.6 k/uL (1.0-4.8); Lymphocytes % (A) 26 %; MCH 30.8 pg (25.0-35.0); MCHC 34.2 g/dL (31.0-37.0); MCV 89.9 fL (80.0-100.0); Mean Platelet Volume 6.8; Monocytes # (A) 0.4 k/uL (0-1.0); Monocytes % (A) 7 %; Neutrophils # (A) 3.6 k/uL (1.3-7.7); Neutrophils % (A) 61 %; Platelet Count 321 k/uL (150-450); RBC 4.64 m/uL (3.80-5.40); RDW 12.5 % (11.5-15.5); WBC 5.9 k/uL (3.8-10.6)
[2022-09-21 12:55] LABS: Prothrombin Time 10.5 sec (9.0-12.0)
[2022-09-21 13:12] LABS: Albumin 3.9 g/dL (3.5-5.0); Calcium 9.4 mg/dL (8.4-10.2); Total Bilirubin 0.6 mg/dL (0.2-1.3); Total Protein 6.7 g/dL (6.3-8.2)
--- NOTE | 2022-09-21 13:36 | XR ---
EXAMINATION TYPE: XR chest 1V portable DATE OF EXAM: 09/21/2022 COMPARISON: Chest x-ray May 17, 2017 HISTORY: Chest pain. TECHNIQUE: Single AP portable frontal upright view of the chest is obtained. FINDINGS: There is patchy left basilar opacity. Right lung is clear. The cardiac silhouette size is stable and within normal limits. The osseous structures are intact. IMPRESSION: Patchy left basilar opacity favors atelectasis.
[2022-09-21 14:10] VITALS: BP 117/76; PULSE 58; RESP 18; TEMP 97.9
== END 2022-09-21 14:12 | disposition home or self-care (01) ==
LOC: EC 12:14
DX: R07.9 Chest pain, unspecified (principal); E78.5 Hyperlipidemia, unspecified; F17.210 Nicotine dependence, cigarettes, uncomplicated; Z88.5 Allergy status to narcotic agent; Z91.041 Radiographic dye allergy status; Z79.899 Other long term (current) drug therapy
CPT/HCPCS: 36415; 71045; 80053; 83690; 83735; 83880; 84484; 85025; 85610; 85730; 93005; 99285

== ENCOUNTER 2023-07-28 07:26 | Emergency (ER) | payer MEDICARE ==
[2023-07-28 07:49] VITALS: TEMP 98.2
--- NOTE | 2023-07-28 08:01 | ED ---
General Adult HPI - General Chief complaint: Abdominal Pain Stated complaint: left sided pain Time Seen by Provider: 07/28/23 07:35 Source: patient, RN notes reviewed, old records reviewed Mode of arrival: ambulatory Limitations: no limitations - History of Present Illness Initial comments: 68-year-old female presenting for evaluation of left lower quadrant abdominal pain, fever and chills and several episodes of vomiting. No upper abdominal pain. No chest pain. Patient does report cough. No dysuria, no hematuria, she had a normal bowel movement yesterday no diarrhea. - Related Data Home Medications Medication Instructions Recorded Confirmed Atorvastatin [Lipitor] 10 mg PO DAILY 09/21/22 09/21/22 Previous Rx's Medication Instructions Recorded Oseltamivir [Tamiflu] 75 mg PO Q12HR 5 Days #10 cap 07/28/23 Allergies Allergy/AdvReac Type Severity Reaction Status Date / Time hydromorphone HCl Allergy Dyspnea Verified 07/28/23 07:30 [From Dilaudid] Iodinated Contrast Media AdvReac Severe Decreased Verified 07/28/23 07:30 [Iodinated Contrast Media - Blood Oral and] Pressure Review of Systems ROS Statement: Those systems with pertinent positive or pertinent negative responses have been documented in the HPI. ROS Other: All systems not noted in ROS Statement are negative. Past Medical History Past Medical History: Hyperlipidemia, Pneumonia Additional Past Medical History / Comment(s): irregular heart beat, chronic low back pain, bronchitis, recent UTI completed ABX and urine now clear. History of Any Multi-Drug Resistant Organisms: None Reported Past Surgical History: Appendectomy, Back Surgery, Cholecystectomy, Hysterectom y, Orthopedic Surgery, Tonsillectomy, Tubal Ligation Additional Past Surgical History / Comment(s): Posterior lumbar decompression with fusion L5-S1, plate L wrist, laparoscopy-found tubal infection tx with ABX. Past Anesthesia/Blood Transfusion Reactions: No Reported Reaction Past Psychological History: No Psychological Hx Reported Smoking Status: Current every day smoker Past Alcohol Use History: Rare Past Drug Use History: None Reported - Past Family History Father History Unknown: Yes Family Medical History: No Reported History (She denied much with her father.) Mother Family Medical History: Seizure Disorder (Mother is a 1-year-old has history of seizure and she also has a history of depression.) Additional Family Medical History / Comment(s): Mother is 81 yrs old. She has depression. Brother(s) Family Medical History: No Reported History (Patient has 3 half-brothers no major medical problems.) Sister(s) Family Medical History: No Reported History (Patient has one sister no major medical problem(she carried her from the sperm donor)) Son(s) Family Medical History: No Reported History (Patient has one son major medical problems) Daughter(s) Family Medical History: No Reported History (Patient has one daughter no major medical problems) General Exam Limitations: no limitations General appearance: alert, in no apparent distress Head exam: Present: atraumatic, normocephalic Eye exam: Present: normal appearance, PERRL ENT exam: Present: normal exam Neck exam: Present: normal inspection. Absent: tenderness, meningismus Respiratory exam: Present: normal lung sounds bilaterally. Absent: respiratory distress, wheezes Cardiovascular Exam: Present: regular rate, normal rhythm GI/Abdominal exam: Present: soft, tenderness (Small amount of left lower quadrant abdominal tenderness). Absent: distended, guarding, rebound Neurological exam: Present: alert, oriented X3 Psychiatric exam: Present: normal affect, normal mood Skin exam: Present: warm, dry, intact. Absent: cyanosis, diaphoretic Course Vital Signs 07/28/23 07:28 Temperature 98.2 F Pulse Rate 84 Respiratory 20 Rate Blood Pressure 113/76 O2 Sat by Pulse 96 Oximetry Medical Decision Making - Medical Decision Making Was pt. sent in by a medical professional or institution ([facility], [facility], urgent care, hospital, or jail...) When possible be specific @ -No Did you speak to anyone other than the patient for history (EMS, parent, family, police, friend...)? What history was obtained from this source @ -No Did you review nursing and triage notes (agree or disagree)? Why? @ -I reviewed and agree with nursing and triage notes Were old charts reviewed (outside hosp., previous admission, EMS record, old EKG, old radiological studies, urgent care reports/EKG's, jail records)? Report findings @ -No old charts were reviewed Differential Diagnosis (chest pain, altered mental status, abdominal pain women, abdominal pain men, vaginal bleeding, weakness, fever, dyspnea, syncope, headache, dizziness, GI bleed, back pain, seizure, CVA, palpatations, mental health, musculoskeletal)? @Differential Abdominal Pain Women: Appendicitis, Cholecystitis, diverticulosis, ischemic bowel, pancreatitis, hepatitis, UTI, gastroenteritis, AAA, incarcerated hernia, bowel obstruction, constipation, inflammatory bowel, hepatitis, peptic ulcer disease, splenic infarction, perforated viscus, vulvitis, ovarian torsion, PID, kidney stone, placenta abruption, this is not meant to be an all-inclusive list EKG interpreted by me (3pts min.). @ -Sinus rhythm rate of 78, [place] interval 140, QRS duration 84, QTc 388, no ST segment elevation. X-rays interpreted by me (1pt min.). @Chest x-ray negative for acute cardiopulmonary findings, abdominal x-ray unremarkable. CT interpreted by me (1pt min.). @ -CT abdomen showing mild enteritis without additional findings. U/S interpreted by me (1pt. min.). @ -None done What testing was considered but not performed or refused? (CT, X-rays, U/S, labs)? Why? @ -None What meds were considered but not given or refused? Why? @ -None Did you discuss the management of the patient with other professionals (professionals i.e. , PA, CHEFS, lab, RT, psych nurse, high school social science teacher, radiology equipment servicer, teacher, combat systems officer, case aide)? Give summary @ -No Was smoking cessation discussed for >3mins.? @ -No Was critical care preformed (if so, how long)? @ -No Were there social determinants of health that impacted care today? How? (Homelessness, low income, unemployed, alcoholism, drug addiction, transportation, low edu. Level, literacy, decrease access to med. care, senior care, rehab)? @ -No Was there de-escalation of care discussed even if they declined (Discuss DNR or withdrawal of care, Hospice)? DNR status @ -No What co-morbidities impacted this encounter? (DM, HTN, Smoking, COPD, CAD, Cancer, CVA, ARF, Chemo, Hep., AIDS, mental health diagnosis, sleep apnea, morbid obesity)? @ -[Smoking, hypertension Was patient admitted / discharged? Hospital course, mention meds given and route, prescriptions, significant lab abnormalities, going to OR and other pertinent info. @68-year-old female with abdominal pain, cough. Patient has had subjective fever and chills. She is afebrile here. Laboratory testing reveals normal CBC, normal CMP, viral testing does reveal that she has influenza A. I did perform CT abdomen in the setting of history of diverticulosis with focal left lower quadrant pain this was negative for acute diverticulitis, showing an enteritis not in the location of the patient's pain. Patient is otherwise well-appearing and stable for discharge at this time. Undiagnosed new problem with uncertain prognosis? @ -No Drug Therapy requiring intensive monitoring for toxicity (Heparin, Nitro, Insulin, Cardizem)? @ -No Were any procedures done? @ -No Diagnosis/symptom? @Abdominal pain, influenza A Acute, or Chronic, or Acute on Chronic? @Acute Uncomplicated (without systemic symptoms) or Complicated (systemic symptoms)? @ -Default Side effects of treatment? @ -No Exacerbation, Progression, or Severe Exacerbation? @ -No Poses a threat to life or bodily function? How? (Chest pain, [place], [place], pneumonia, PE, COPD, DKA, ARF, appy, cholecystitis, CVA, Diverticulitis, Homicidal, Suicidal, threat to staff... and all critical care pts) @ -Low risk at this time - Lab Data Result diagrams: 07/28/23 07:49 07/28/23 07:49 Lab Results 07/28/23 07/28/23 07/28/23 Range/Units 07:49 07:49 07:49 WBC 4.4 (3.8-10.6) k/uL RBC 4.47 (3.80-5.40) m/uL Hgb 13.9 (11.4-16.0) gm/dL Hct 40.3 (34.0-46.0) % MCV 90.0 (80.0-100.0) fL MCH 31.0 (25.0-35.0) pg MCHC 34.5 (31.0-37.0) g/dL RDW 12.3 (11.5-15.5) % Plt Count 327 (150-450) k/uL MPV 6.8 Neutrophils % 54 % Lymphocytes % 29 % Monocytes % 13 % Eosinophils % 1 % Basophils % 1 % Neutrophils # 2.4 (1.3-7.7) k/uL Lymphocytes # 1.3 (1.0-4.8) k/uL Monocytes # 0.6 (0-1.0) k/uL Eosinophils # 0.0 (0-0.7) k/uL Basophils # 0.0 (0-0.2) k/uL PT 10.2 (10.0-12.5) sec INR 0.9 (<1.2) APTT 25.4 (22.0-30.0) sec Sodium (137-145) mmol/L Potassium (3.5-5.1) mmol/L Chloride (98-107) mmol/L Carbon Dioxide (22-30) mmol/L Anion Gap mmol/L BUN (7-17) mg/dL Creatinine (0.52-1.04) mg/dL Est GFR (CKD-EPI)AfAm (>60 ml/min/1.73 sqM) Est GFR (CKD-EPI)NonAf (>60 ml/min/1.73 sqM) Glucose (74-99) mg/dL Plasma Lactic Acid Jay (0.7-2.0) mmol/L Calcium (8.4-10.2) mg/dL Total Bilirubin (0.2-1.3) mg/dL AST (14-36) U/L ALT (4-34) U/L Alkaline Phosphatase (38-126) U/L Total Protein (6.3-8.2) g/dL Albumin (3.5-5.0) g/dL Amylase (30-110) U/L Lipase (23-300) U/L Urine Color Yellow Urine Appearance Cloudy H (Clear) Urine pH 5.5 (5.0-8.0) Ur Specific White 1.036 H (1.001-1.035) Urine Protein 1+ H (Negative) Urine Glucose (UA) Negative (Negative) Urine Ketones Negative (Negative) Urine Blood Small H (Negative) Urine Nitrite Negative (Negative) Urine Bilirubin Negative (Negative) Urine Urobilinogen <2.0 (<2.0) mg/dL Ur Leukocyte Esterase Negative (Negative) Urine RBC 8 H (0-5) /hpf Urine WBC 3 (0-5) /hpf Ur Squamous Epith Cells 2 (0-4) /hpf Amorphous Sediment Rare H (None) /hpf Urine Mucus Many H (None) /hpf Influenza Type A (PCR) (Not Detectd) Influenza Type B (PCR) (Not Detectd) RSV (PCR) (Not Detectd) SARS-CoV-2 (PCR) (Not Detectd) 07/28/23 07/28/23 07/28/23 Range/Units 07:49 07:49 07:55 WBC (3.8-10.6) k/uL RBC (3.80-5.40) m/uL Hgb (11.4-16.0) gm/dL Hct (34.0-46.0) % MCV (80.0-100.0) fL MCH (25.0-35.0) pg MCHC (31.0-37.0) g/dL RDW (11.5-15.5) % Plt Count (150-450) k/uL MPV Neutrophils % % Lymphocytes % % Monocytes % % Eosinophils % % Basophils % % Neutrophils # (1.3-7.7) k/uL Lymphocytes # (1.0-4.8) k/uL Monocytes # (0-1.0) k/uL Eosinophils # (0-0.7) k/uL Basophils # (0-0.2) k/uL PT (10.0-12.5) sec INR (<1.2) APTT (22.0-30.0) sec Sodium 137 (137-145) mmol/L Potassium 4.1 (3.5-5.1) mmol/L Chloride 109 H (98-107) mmol/L Carbon Dioxide 18 L (22-30) mmol/L Anion Gap 10 mmol/L BUN 20 H (7-17) mg/dL Creatinine 0.75 (0.52-1.04) mg/dL Est GFR (CKD-EPI)AfAm >90 (>60 ml/min/1.73 sqM) Est GFR (CKD-EPI)NonAf 82 (>60 ml/min/1.73 sqM) Glucose 116 H (74-99) mg/dL Plasma Lactic Acid Jay 1.2 (0.7-2.0) mmol/L Calcium 9.2 (8.4-10.2) mg/dL Total Bilirubin 0.5 (0.2-1.3) mg/dL AST 31 (14-36) U/L ALT 31 (4-34) U/L Alkaline Phosphatase 98 (38-126) U/L Total Protein 6.8 (6.3-8.2) g/dL Albumin 4.1 (3.5-5.0) g/dL Amylase 76 (30-110) U/L Lipase 58 (23-300) U/L Urine Color Urine Appearance (Clear) Urine pH (5.0-8.0) Ur Specific White (1.001-1.035) Urine Protein (Negative) Urine Glucose (UA) (Negative) Urine Ketones (Negative) Urine Blood (Negative) Urine Nitrite (Negative) Urine Bilirubin (Negative) Urine Urobilinogen (<2.0) mg/dL Ur Leukocyte Esterase (Negative) Urine RBC (0-5) /hpf Urine WBC (0-5) /hpf Ur Squamous Epith Cells (0-4) /hpf Amorphous Sediment (None) /hpf Urine Mucus (None) /hpf Influenza Type A (PCR) Detected A (Not Detectd) Influenza Type B (PCR) Not Detected (Not Detectd) RSV (PCR) Not Detected (Not Detectd) SARS-CoV-2 (PCR) Not Detected (Not Detectd) Disposition Clinical Impression: Abdominal pain, Influenza A Disposition: HOME SELF-CARE Condition: Fair Instructions (If sedation given, give patient instructions): Abdominal Pain (ED), Influenza (ED) Prescriptions: Oseltamivir [Tamiflu] 75 mg PO Q12HR 5 Days #10 cap Is patient prescribed a controlled substance at d/c from ED?: No Referrals: Jarrett Alfaro [Primary Care Provider] - 1-2 days
[2023-07-28 08:06] LABS: INR 0.9 (<1.2); Partial Thromboplastin Time 25.4 sec (22.0-30.0); Prothrombin Time 10.2 sec (10.0-12.5)
[2023-07-28 08:08] LABS: Basophils % (A) 1 %; Eosinophils % (A) 1 %; HCT 40.3 % (34.0-46.0); HGB 13.9 gm/dL (11.4-16.0); Lymphocytes # (A) 1.3 k/uL (1.0-4.8); Lymphocytes % (A) 29 %; MCHC 34.5 g/dL (31.0-37.0); Mean Platelet Volume 6.8; Monocytes # (A) 0.6 k/uL (0-1.0); Monocytes % (A) 13 %; Neutrophils # (A) 2.4 k/uL (1.3-7.7); Neutrophils % (A) 54 %; Platelet Count 327 k/uL (150-450); RBC 4.47 m/uL (3.80-5.40); RDW 12.3 % (11.5-15.5); WBC 4.4 k/uL (3.8-10.6)
[2023-07-28] MEDS: SODIUM CHLORIDE 0.9% 1,000 ML IV ONE (08:08)
[2023-07-28] MEDS: KETOROLAC 15 MG/ML 1 ML VIAL IVP STA (08:08)
[2023-07-28] MEDS: ONDANSETRON 4 MG/2 ML VIAL IVP STA (08:08)
[2023-07-28 08:17] LABS: ALT 31 U/L (4-34); AST 31 U/L (14-36); African American GFR (CKD) >90 (>60 ml/min/1.73 sqM); Albumin 4.1 g/dL (3.5-5.0); Alkaline Phosphatase 98 U/L (38-126); Amylase 76 U/L (30-110); Anion Gap 10 mmol/L; Blood Urea Nitrogen 20 mg/dL (7-17); Calcium 9.2 mg/dL (8.4-10.2); Carbon Dioxide 18 mmol/L (22-30); Chloride 109 mmol/L (98-107); Glucose 116 mg/dL (74-99); Lipase 58 U/L (23-300); Non-African American GFR(CKD) 82 (>60 ml/min/1.73 sqM); Potassium 4.1 mmol/L (3.5-5.1); Sodium 137 mmol/L (137-145); Total Bilirubin 0.5 mg/dL (0.2-1.3); Total Protein 6.8 g/dL (6.3-8.2)
--- NOTE | 2023-07-28 08:32 | XR ---
EXAMINATION TYPE: XR chest 2V DATE OF EXAM: 07/28/2023 COMPARISON: 09/21/2022 TECHNIQUE: PA and lateral views submitted. HISTORY: Cough FINDINGS: The lungs are clear and there is no pneumothorax, pleural effusion, or focal pneumonia. Subsegmental changes left lung base. Heart size normal and no overt failure. Osseous structures demonstrate hype rtrophic and degenerative changes of the spine. AC joint arthropathy. Surgical clips in the upper abd omen. IMPRESSION: 1. Left basilar atelectasis favored over pneumonia..
--- NOTE | 2023-07-28 08:34 | XR ---
EXAMINATION TYPE: XR KUB DATE OF EXAM: 07/28/2023 COMPARISON: None HISTORY: Right flank TECHNIQUE: One view abdominal series FINDINGS: The osseous structures are intact. The bowel gas pattern is nonspecific. Left basilar atelectasis fa vored over pneumonia.. Postsurgical changes of the vertebral column and right quadrant. No definite suspicious calcifications. IMPRESSION: 1. Nonspecific abdomen.
[2023-07-28 09:15] LABS: Amorphous Sediment,Urine Rare /hpf; Appearance,Urine Cloudy (Clear); Bilirubin,Urine Negative (Negative); Blood,Urine Small (Negative); Color,Urine Yellow; Glucose,Urine (UA) Negative (Negative); Ketones,Urine Negative (Negative); Leukocyte Esterase,Urine Negative (Negative); Mucus,Urine Many /hpf; Nitrite,Urine Negative (Negative); PH, Urine 5.5 (5.0-8.0); Protein,Urine 1+ (Negative); RBC,Urine 8 /hpf (0-5); Specific Gravity,Urine 1.036 (1.001-1.035); Squamous Epithelial Cell,Urine 2 /hpf (0-4); Urobilinogen,Urine <2.0 mg/dL (<2.0); WBC,Urine 3 /hpf (0-5)
--- NOTE | 2023-07-28 09:27 | CT ---
EXAMINATION TYPE: CT abdomen pelvis wo con DATE OF EXAM: 07/28/2023 COMPARISON: 03/12/2022 HISTORY: LLQ pain CT DLP: 519.6 mGycm Examination of the solid and hollow viscera is limited given the lack of contrast. FINDINGS: LUNG BASES: No evidence for nodule. No evidence for infiltrate. Small hiatal hernia is seen. LIVER/GB: The gallbladder is surgically absent. Multiple hypoattenuating lesions within the liver com patible with cysts. PANCREAS: No pancreatic mass identified. No inflammatory process seen. SPLEEN: No evidence for splenomegaly. No intrasplenic lesions seen. ADRENALS: No adrenal nodules identified. No evidence for thickening. KIDNEYS: No evidence for renal mass. No nephrolithiasis. No hydronephrosis. BOWEL: Appendix has a normal appearance. Distended loop of small bowel measuring up to 2.9 cm right h emiabdomen reflects focal ileus. Distended loop of bowel demonstrates wall thickening and could refle ct focal enteritis. Correlate clinically. Remaining small bowel loops and large bowel are of normal caliber. No evidence of bowel obstruction. No inflammatory process. Scattered sigmoid diverticulosis without diverticulitis. Lymph nodes: No evidence for adenopathy greater than 1 cm. Abdominal aorta: Atheromatous changes seen. No evidence for aneurysm. Genital organs: No significant abnormality. Other: No significant abnormality. IMPRESSION: Distended loop of small bowel measuring up to 2.9 cm right hemiabdomen reflects focal ileus. Distende d loop of bowel demonstrates wall thickening and could reflect focal enteritis.
[2023-07-28 09:48] VITALS: BP 107/68; PULSE 75; RESP 18
== END 2023-07-28 09:50 | disposition home or self-care (01) ==
LOC: EC 07:26
DX: J10.1 Influenza due to other identified influenza virus with other respiratory manifestations (principal); R10.32 Left lower quadrant pain; E78.5 Hyperlipidemia, unspecified; F17.200 Nicotine dependence, unspecified, uncomplicated; Z79.899 Other long term (current) drug therapy; Z20.822 Contact with and (suspected) exposure to COVID-19; Z88.5 Allergy status to narcotic agent
CPT/HCPCS: 36415; 93005; 80053; 82150; 83605; 83690; 85025; 85610; 85730; 81001; 87636; 71046; 74018; 74176; 99285; 96374; 96375; 96361; J2405; J1885

== ENCOUNTER → 2023-11-06 | Outpatient (CLI) | payer MEDICARE ==
--- NOTE | 2023-11-06 12:55 | CT ---
EXAMINATION TYPE: CT lumbar spine wo con DATE OF EXAM: 11/06/2023 11:52 AM COMPARISON: 05/29/2018 HISTORY: Radiulopathy, lumbar region, multiple surgeries, prior injury. Prior in PACs DLP CT DLP: 633.70 mGycm Automated exposure control for dose reduction was used. Unenhanced CT of the lumbar spine was performed. Bone and soft tissue window settings are submitted as well as coronal and sagittal reconstructions. L1-L2: Normal disc space height. No disc herniation protrusion or central stenosis. No facet joint arthropathy. No evidence for foraminal encroachment. L2-L3: Normal disc space height. No disc herniation protrusion or central stenosis. No facet joint arthropathy. No evidence for foraminal encroachment. L3-L4: Normal disc space height. No disc herniation protrusion or central stenosis. No facet joint arthropathy. No evidence for foraminal encroachment. L4-L5: Postoperative changes of lumbar laminectomy and fusion. Pedicular screws are in place. Postope rative alignment is within normal limits. Streak artifact limits evaluation. No obvious recurrent dis ease. L5-S1: Postoperative changes of lumbar laminectomy and fusion. Pedicular screws are in place. Postope rative alignment is within normal limits. Streak artifact limits evaluation. No obvious recurrent dis ease. Multiple hepatic cysts partially imaged. IMPRESSION: 1. Postoperative changes of lumbar laminectomy and fusion with stable postoperative alignment.
== END | disposition home or self-care (01) ==
LOC: RADCTMAIN 09:31
PROVIDERS: ATTEND Orthopaedic Surgery
DX: M54.16 Radiculopathy, lumbar region (principal); Z98.1 Arthrodesis status
CPT/HCPCS: 72131

== ENCOUNTER → 2023-12-03 | Outpatient (CLI) | payer MEDICARE ==
--- NOTE | 2023-12-03 20:16 | MR ---
EXAMINATION TYPE: MR lumbar spine wo con DATE OF EXAM: 12/03/2023 COMPARISON: CT lumbar spine November 06, 2023 HISTORY: Low back pain into both sides x 2 months, Hx back surgery 2011 and 2018 TECHNIQUE: Multiplanar, multisequence imaging of the lumbar spine is performed without IV contrast. FINDINGS: Sagittal images of the lumbar spine show vertebral body heights to appear satisfactory. Sub tle grade 1 retrolisthesis L1 on L2 is redemonstrated. There is artifact from posterior fusion hardwa re at L4-S1 levels redemonstrated. There is artifact from metallic disc spacer at L4-L5 level noted. Multilevel disc desiccation is seen above the surgical levels. Disc space heights are fairly well pre served. The conus medullaris is normal in position and signal ending at T12-L1 disc space level. Th e bone marrow signal intensity is within normal limits above the surgical levels. Posterior disc patricio iation effacing the anterior thecal sac at T11-T12 level on sagittal image 7. Axial images at T12-L1 level show focal right paracentral/foraminal disc protrusion anterolateral the vaibhav sac and axial image 29. Effacement of the central right S1 nerve needle to be considered. Bilater al neural foramina are patent. Axial images at L1-L2 level shows subtle spondylolisthesis and mild broad-based posterior disc protru triston minimally effaces the anterior thecal sac. Axial images at L2-L3 level appear within normal limits. Axial images at L3-L4 level show artifact from surgical change posteriorly. There is mild/moderate fa cet arthropathy bilaterally. Axial images at L4-L5 and L5-S1 levels artifact from surgical change. Posterior decompression changes are seen. Facet arthropathy is noted. The spinal canal preserved. Bilateral neural foramina are like ly patent. Paraspinal muscle bulk is maintained. IMPRESSION: Postsurgical change at the L4-S1 levels are seen. Successful decompression noted. Some mu ltilevel degenerative changes are present as detailed above.
== END | disposition home or self-care (01) ==
LOC: RADMRIMAIN 18:23
PROVIDERS: ATTEND Orthopaedic Surgery
DX: M47.816 Spondylosis without myelopathy or radiculopathy, lumbar region (principal); M54.16 Radiculopathy, lumbar region
CPT/HCPCS: 72148

== ENCOUNTER → 2024-05-13 | Outpatient (CLI) | payer MEDICARE ==
--- NOTE | 2024-05-13 10:50 | BD ---
EXAMINATION TYPE: Axial Bone Density DATE OF EXAM: 05/13/2024 CLINICAL HISTORY: 69 years old Female. ICD-10 CODE: Z78.0 ASYM MENOPAUSAL , Additional History: Height: 64 Weight: 173 FRAX RISK QUESTIONS: Family History (Parent hip fracture): yes History of Fracture in Adulthood: yes Secondary Osteoporosis: 3. Menopause before 45: yes RISK FACTORS HISTORY OF: Spine Fracture: yes When: 2018 History of Wrist Fracture: yes When: 2004 Surgery to Spine/Hip(right/left)/Wrist (right/left): lumbar spine and left wrist When: 2004 MEDICATIONS: EXAM MEASUREMENTS: Bone mineral densitometry was performed using the [employer] System. Bone mineral density about the R hip (g/cm2): 0.959 Bone mineral density about the L hip (g/cm2): 0.972 T Score values are as follows: -----R Neck: -1.2 -----L Neck: -1.2 -----R Total: -0.4 -----L Total: -0.3 Z Score values are as follows: -----R Neck: 0.2 -----L Neck: 0.2 -----R Total: 0.8 -----L Total: 0.9 Bone mineral density has: Increased 0.7% since study of: 08-20-19 FRAX%s: The graph provided illustrates a 22.3% chance for a major osteoporotic fx and a 3.7% chance f or the hips probability for fx in 10 years time. IMPRESSION: Normal (Values between +1 and -1 indicate normal bone mass). Consider repeating this study in 5 year s or sooner if there is some new clinical indication. NOTE: T-SCORE=SD OF THE YOUNG ADULT MEAN. [facility], , 05/13/2024 10:48 AM
--- NOTE | 2024-05-14 14:45 | MM ---
Reason for Exam: Screening (asymptomatic). Last mammogram was performed 2 year(s) and 4 month(s) ago. Patient History: Menarche at age 12. First Full-Term at age 18. Left ovary removed at age 40. Hysterectomy at age 40. Postmenopausal. Other cancer. Estrogen, from age 52 until age 52. Patient used Hormonal Contraceptives for 2 years. Risk Values: Elizabeth 5 year model risk: 1.2%. NCI Lifetime model risk: 3.7%. Prior Study Comparison: 08/20/2019 Bilateral Screening Mammogram, [facility]. 12/29/2020 Bilateral Screening Mammogram, [facility]. 01/15/2022 Bilateral MG 3D screening mammo w/cad, [facility]. Tissue Density: There are scattered areas of fibroglandular density. Findings: Analyzed By CAD. Right breast: There is no suspicious group of microcalcifications or new suspicious mass. Left breast: There is no suspicious group of microcalcifications or new suspicious mass. Overall Assessment: Negative, BI-RAD 1 Management: Screening Mammogram of both breasts in [address] [facility] will attempt to contact patient to return for supplemental views and ultrasound if indicated. Patient should continue monthly self-breast exams. A clinical breast exam by your physician is recommended on an annual basis. This exam should not preclude additional follow-up of suspicious palpable abnormalities. Note on Elizabeth scores and lifetime risk: 1. A Elizabeth score greater than 3% is considered moderate risk. If this is the case, consider specialist referral to assess eligibility for a risk reducing agent. 2. If overall lifetime risk for the development of breast cancer is 20% or higher, the patient may qualify for future screening with alternating mammogram and breast MRI. [facility], , 05/14/2024 2:42 PM. Electronically signed and approved by: Yoni St DO
== END | disposition home or self-care (01) ==
LOC: RADMAMWWP 08:48
PROVIDERS: ATTEND Family Medicine
DX: Z12.31 Encounter for screening mammogram for malignant neoplasm of breast (principal); R92.323 Mammographic fibroglandular density, bilateral breasts; M85.89 Other specified disorders of bone density and structure, multiple sites; Z78.0 Asymptomatic menopausal state; Z90.722 Acquired absence of ovaries, bilateral
CPT/HCPCS: 77063; 77067; 77080

== ENCOUNTER → 2024-05-17 | Outpatient (CLI) | payer MEDICARE ==
--- NOTE | 2024-05-17 11:45 | CTL ---
EXAMINATION TYPE: CT Low Dose Lung DATE OF EXAM ORDERED: 05/17/2024 COMPARISON: Chest radiograph 05/03/2024, CT abdomen and pelvis 07/28/2023, 03/12/2022 CLINICAL INDICATION: Female, 69 years old with history of Z12.2 ENCNTR SCREEN FOR MALIGNANT NEOPLASM OF RESP; PHH, history of smoker, Lung cancer screening, History of Smoking/tobacco use. TECHNIQUE: Low dose computed tomography scan was performed through the chest at 1 mm thick sections a nd reconstructed images in multiple planes at 1 mm and [address] DLP: 87.[address] CTDI: 2.4 mGy Automated exposure control for dose reduction was used. CT DIAGNOSTIC QUALITY: Satisfactory FINDINGS: Nodules: No clinically significant pulmonary nodules. LUNGS: COPD: Severity: None Fibrosis: Severity: None Lymph nodes: None Other findings: Linear scarring and/or atelectasis within the lingula and left lower lobe. RIGHT PLEURAL SPACE: Effusion: None Calcification: None Thickening: None Pneumothorax: None LEFT PLEURAL SPACE: Effusion: None Calcification: None Thickening: None Pneumothorax: None HEART: Heart Size: Normal Coronary Calcification: None Pericardial Effusion: None OTHER FINDINGS: Upper abdomen: Several low-density stable lesions within the liver dating back to 2021 and considered benign. Probable cysts and/or hemangiomas. Gallbladder surgically absent. Small hiatal hernia. 4. Diverticulosis without visualized acute diverticulitis. Bony thorax: None Supraclavicular region: None Other: Dilated main pulmonary artery measuring up to 3.3 cm which can be seen with pulmonary arterial hypertension. IMPRESSION: No clinically significant pulmonary nodules. CT LUNG RAD AND CT CHEST RECOMMENDATION: Lung-Rad 1 Negative: Continue annual screening with LDCT in 12 months. S Modifier (other clinically significant findings): None [facility], , 05/17/2024 11:43 AM
== END | disposition home or self-care (01) ==
LOC: RADCTMAIN 10:55
PROVIDERS: ATTEND Internal Medicine
DX: Z12.2 Encounter for screening for malignant neoplasm of respiratory organs (principal); Z87.891 Personal history of nicotine dependence
CPT/HCPCS: 71271

== ENCOUNTER 2024-06-07 07:56 | Emergency (ER) | payer MEDICARE ==
[2024-06-07 08:10] VITALS: TEMP 98.5
--- NOTE | 2024-06-07 08:38 | XR ---
EXAMINATION TYPE: XR chest 2V DATE OF EXAM: 06/07/2024 8:31 AM COMPARISON: 07/28/2023 CLINICAL INDICATION: Female, 69 years old with history of Cough, TECHNIQUE: Frontal and lateral views of the chest are obtained. FINDINGS: There is no focal air space opacity, pleural effusion, or pneumothorax seen. The cardiac silhouette size is within normal limits. The osseous structures are intact. IMPRESSION: No acute cardiopulmonary process. [facility], , 06/07/2024 8:36 AM
--- NOTE | 2024-06-07 08:51 | ED ---
General Adult HPI - General Chief complaint: Upper Respiratory Infection Stated complaint: SOB Time Seen by Provider: 06/07/24 08:03 Source: patient Mode of arrival: ambulatory Limitations: no limitations - History of Present Illness Initial comments: Dictation was produced using [employer] dictation software. please excuse any grammatical, word or spelling errors. Chief Complaint: 69-year-old female with cough History of Present Illness: Patient 69-year-old female with no significant comorbidities. States that she has had a cough for over 3 weeks. Patient has seen medical staff at urgent care and was prescribed antibiotics after being diagnosed with bronchitis states that her symptoms did not improve. She is having a productive cough. States that her phlegm is not bloody or purulent in nature. No obvious sick contacts. The ROS documented in this emergency department record has been reviewed and confirmed by me. Those systems with pertinent positive or negative responses have been documented in the HPI. All other systems are other negative and/or noncontributory. - Related Data Home Medications Medication Instructions Recorded Confirmed Atorvastatin [Lipitor] 10 mg PO DAILY 09/21/22 09/21/22 Previous Rx's Medication Instructions Recorded Oseltamivir [Tamiflu] 75 mg PO Q12HR 5 Days #10 cap 07/28/23 Benzonatate [Tessalon Perle] 100 mg PO TID PRN #24 capsule 06/07/24 methylPREDNISolone Dose Pack 4 mg PO DIRECTED #1 packet 06/07/24 [Medrol Dose Pack] Allergies Allergy/AdvReac Type Severity Reaction Status Date / Time hydromorphone HCl Allergy Dyspnea Verified 06/07/24 08:10 [From Dilaudid] Iodinated Contrast Media AdvReac Severe Decreased Verified 06/07/24 08:10 [Iodinated Contrast Media - Blood Oral and] Pressure Review of Systems ROS Statement: Those systems with pertinent positive or pertinent negative responses have been documented in the HPI. ROS Other: All systems not noted in ROS Statement are negative. Past Medical History Past Medical History: Hyperlipidemia, Pneumonia Additional Past Medical History / Comment(s): irregular heart beat, chronic low back pain, bronchitis, recent UTI completed ABX and urine now clear. History of Any Multi-Drug Resistant Organisms: None Reported Past Surgical History: Appendectomy, Back Surgery, Cholecystectomy, Hysterectomy, Orthopedic Surgery, Tonsillectomy, Tubal Ligation Additional Past Surgical History / Comment(s): Posterior lumbar decompression with fusion L5-S1, plate L wrist, laparoscopy-found tubal infection tx with ABX. Past Anesthesia/Blood Transfusion Reactions: No Reported Reaction Past Psychological History: No Psychological Hx Reported Smoking Status: Former smoker Past Alcohol Use History: Rare Past Drug Use History: None Reported - Past Family History Father History Unknown: Yes Family Medical History: No Reported History (She denied much with her father.) Mother Family Medical History: Seizure Disorder (Mother is a 1-year-old has history of seizure and she also has a history of depression.) Additional Family Medical History / Comment(s): Mother is 81 yrs old. She has depression. Brother(s) Family Medical History: No Reported History (Patient has 3 half-brothers no major medical problems.) Sister(s) Family Medical History: No Reported History (Patient has one sister no major medical problem(she carried her from the sperm donor)) Son(s) Family Medical History: No Reported History (Patient has one son major medical problems) Daughter(s) Family Medical History: No Reported History (Patient has one daughter no major medical problems) General Exam - General Exam Comments Initial Comments: PHYSICAL EXAM: General Impression: Alert and oriented x3, acute distress secondary to coughing HEENT: Normocephalic atraumatic, extra-ocular movements intact, pupils equal and reactive to light bilaterally, mucous membranes moist. Cardiovascular: Heart regular rate and rhythm Chest: Able to complete full sentences, no retractions, no tachypnea, faint rhonchi to the left posterior lung smiley Abdomen: abdomen soft, non-tender, non-distended, no organomegaly Musculoskeletal: Pulses present and equal in all extremities, no peripheral edema Motor: no focal deficits noted Neurological: CN II-XII grossly intact, no focal motor or sensory deficits noted Skin: Intact with no visualized rashes Psych: Normal affect and mood Limitations: no limitations Course Vital Signs 06/07/24 08:08 Temperature 98.5 F Pulse Rate 80 Respiratory 22 Rate Blood Pressure 102/66 O2 Sat by Pulse 96 Oximetry Medical Decision Making - Medical Decision Making was pt. sent in by a medical professional or institution (, PA, FOOD SERVICE CLERK, urgent care, hospital, or group home...) When possible be specific @ -No Did you speak to anyone other than the patient for history (EMS, parent, family, police, friend...)? What history was obtained from this source @ -No Did you review nursing and triage notes (agree or disagree)? Why? @ -I reviewed and agree with nursing and triage notes Were old charts reviewed (outside hosp., previous admission, EMS record, old EKG, old radiological studies, urgent care reports/EKG's, group home records)? Report findings @ -No old charts were reviewed Differential Diagnosis (chest pain, altered mental status, abdominal pain women, abdominal pain men, vaginal bleeding, musculoskeletal, weakness, fever, dyspnea, syncope, headache, dizziness, GI bleed, back pain, seizure, CVA, palpatations, mental health)? @ -Differential Dyspnea: Coronary syndrome, arrhythmia, tamponade, asthma, COPD, pulmonary embolism, pneumonia, pneumothorax, pulmonary effusion, anaphylaxis, diabetic ketoacidosis, flailed chest, pulmonary contusion, diaphragmatic rupture, anemia, neuro muscular, this is not meant to be an all-inclusive list. EKG interpreted by me (3pts min.). @ -None done X-rays interpreted by me (1pt min.). @ -Chest x-ray shows no acute processes CT interpreted by me (1pt min.). @ -None done U/S interpreted by me (1pt. min.). @ -None done What testing was considered but not performed or refused? (CT, X-rays, U/S, labs)? Why? @ -None What meds were considered but not given or refused? Why? @ -None Was smoking cessation discussed for >3mins.? @ -No Were there social determinants of health that impacted care today? How? (Homelessness, low income, unemployed, alcoholism, drug addiction, transportation, low edu. Level, literacy, decrease access to med. care, shelter, rehab)? @ -No Was there de-escalation of care discussed even if they declined (Discuss DNR or withdrawal of care, Hospice)? DNR status @ -No What co-morbidities impacted this encounter? (DM, HTN, Smoking, COPD, CAD, Cancer, CVA, ARF, Chemo, Hep., AIDS, mental health diagnosis, sleep apnea, morbid obesity)? @ -History of COPD Was patient admitted / discharged? Hospital course, mention meds given and route, prescriptions, significant lab abnormalities, going to OR and other pertinent info. @ -69-year-old female presents emergency department persistent cough. Vital signs stable. Physical examination is benign. Patient in no acute distress. Laboratory evaluation obtained. Labs unremarkable. Viral testing negative. X- ray is nonacute. Patient has follow-up with pulmonology. This point no indication for antibiotic administration. She does have cough syrup at home fran t she uses at night. Patient given Tessalon Perles and Medrol Dosepak. Advised to follow-up with her director of strategic sales Did you discuss the management of the patient with other professionals (professionals i.e. , PA, FOOD SERVICE CLERK, lab, RT, psych nurse, nursing home social worker, manager educational, teacher, facilities officer, patient case coordinator)? Give summary @ -No Was critical care preformed (if so, how long)? @ -No Undiagnosed new problem with uncertain prognosis? @ -No Drug Therapy requiring intensive monitoring for toxicity (Heparin, Nitro, Insulin, Cardizem)? @ -No Were any procedures done? @ -No Diagnosis/symptom? Acute, or Chronic, or Acute on Chronic? Uncomplicated (without systemic symptoms) or Complicated (systemic symptoms)? @ -Cough Side effects of treatment? @ -No Exacerbation, Progression, or Severe Exacerbation? @ -No Poses a threat to life or bodily function? How? (Chest pain, [place], [place], pneumonia, PE, COPD, DKA, ARF, appy, cholecystitis, CVA, Diverticulitis, Homicidal, Suicidal, threat to staff... and all critical care pts) @ -No - Lab Data Result diagrams: 06/07/24 10:24 06/07/24 10:24 Lab Results 06/07/24 06/07/24 06/07/24 Range/Units 08:12 10:24 10:24 WBC 9.2 (3.8-10.6) k/uL RBC 4.71 (3.80-5.40) m/uL Hgb 13.7 (11.4-16.0) gm/dL Hct 42.2 (34.0-46.0) % MCV 89.5 (80.0-100.0) fL MCH 29.2 (25.0-35.0) pg MCHC 32.6 (31.0-37.0) g/dL RDW 12.6 (11.5-15.5) % Plt Count 386 (150-450) k/uL MPV 6.5 Neutrophils % 61 % Lymphocytes % 26 % Monocytes % 7 % Eosinophils % 3 % Basophils % 1 % Neutrophils # 5.6 (1.3-7.7) k/uL Lymphocytes # 2.4 (1.0-4.8) k/uL Monocytes # 0.6 (0-1.0) k/uL Eosinophils # 0.3 (0-0.7) k/uL Basophils # 0.1 (0-0.2) k/uL Sodium 138 (137-145) mmol/L Potassium 4.1 (3.5-5.1) mmol/L Chloride 113 H (98-107) mmol/L Carbon Dioxide 19 L (22-30) mmol/L Anion Gap 6 mmol/L BUN 25 H (7-17) mg/dL Creatinine 0.78 (0.52-1.04) mg/dL Est GFR (CKD-EPI)AfAm 89 (>60 ml/min/1.73 sqM) Est GFR (CKD-EPI)NonAf 78 (>60 ml/min/1.73 sqM) Glucose 101 H (74-99) mg/dL Plasma Lactic Acid Jay (0.7-2.0) mmol/L Calcium 9.5 (8.4-10.2) mg/dL Influenza Type A (PCR) Not Detected (Not Detectd) Influenza Type B (PCR) Not Detected (Not Detectd) RSV (PCR) Not Detected (Not Detectd) SARS-CoV-2 (PCR) Not Detected (Not Detectd) 06/07/24 Range/Units 10:24 WBC (3.8-10.6) k/uL RBC (3.80-5.40) m/uL Hgb (11.4-16.0) gm/dL Hct (34.0-46.0) % MCV (80.0-100.0) fL MCH (25.0-35.0) pg MCHC (31.0-37.0) g/dL RDW (11.5-15.5) % Plt Count (150-450) k/uL MPV Neutrophils % % Lymphocytes % % Monocytes % % Eosinophils % % Basophils % % Neutrophils # (1.3-7.7) k/uL Lymphocytes # (1.0-4.8) k/uL Monocytes # (0-1.0) k/uL Eosinophils # (0-0.7) k/uL Basophils # (0-0.2) k/uL Sodium (137-145) mmol/L Potassium (3.5-5.1) mmol/L Chloride (98-107) mmol/L Carbon Dioxide (22-30) mmol/L Anion Gap mmol/L BUN (7-17) mg/dL Creatinine (0.52-1.04) mg/dL Est GFR (CKD-EPI)AfAm (>60 ml/min/1.73 sqM) Est GFR (CKD-EPI)NonAf (>60 ml/min/1.73 sqM) Glucose (74-99) mg/dL Plasma Lactic Acid Jay 1.4 (0.7-2.0) mmol/L Calcium (8.4-10.2) mg/dL Influenza Type A (PCR) (Not Detectd) Influenza Type B (PCR) (Not Detectd) RSV (PCR) (Not Detectd) SARS-CoV-2 (PCR) (Not Detectd) Disposition Clinical Impression: Cough Disposition: HOME SELF-CARE Condition: Good Instructions (If sedation given, give patient instructions): Chronic Cough (ED) Prescriptions: methylPREDNISolone Dose Pack [Medrol Dose Pack] 4 mg PO DIRECTED #1 packet Benzonatate [Tessalon Perle] 100 mg PO TID PRN #24 capsule PRN Reason: Cough Is patient prescribed a controlled substance at d/c from ED?: No Referrals: Jarrett Alfaro [Primary Care Provider] - 1-2 days Prema Medina MD [STAFF PHYSICIAN] - 1-2 days Time of Disposition: 11:33
[2024-06-07 10:35] LABS: Basophils # (A) 0.1 k/uL (0-0.2); Basophils % (A) 1 %; Eosinophils # (A) 0.3 k/uL (0-0.7); Eosinophils % (A) 3 %; HCT 42.2 % (34.0-46.0); HGB 13.7 gm/dL (11.4-16.0); Lymphocytes # (A) 2.4 k/uL (1.0-4.8); Lymphocytes % (A) 26 %; MCH 29.2 pg (25.0-35.0); MCHC 32.6 g/dL (31.0-37.0); MCV 89.5 fL (80.0-100.0); Mean Platelet Volume 6.5; Monocytes # (A) 0.6 k/uL (0-1.0); Monocytes % (A) 7 %; Neutrophils # (A) 5.6 k/uL (1.3-7.7); Neutrophils % (A) 61 %; Platelet Count 386 k/uL (150-450); RBC 4.71 m/uL (3.80-5.40); RDW 12.6 % (11.5-15.5); WBC 9.2 k/uL (3.8-10.6)
[2024-06-07 10:44] LABS: African American GFR (CKD) 89 (>60 ml/min/1.73 sqM); Anion Gap 6 mmol/L; Blood Urea Nitrogen 25 mg/dL (7-17); Calcium 9.5 mg/dL (8.4-10.2); Carbon Dioxide 19 mmol/L (22-30); Chloride 113 mmol/L (98-107); Glucose 101 mg/dL (74-99); Non-African American GFR(CKD) 78 (>60 ml/min/1.73 sqM); Potassium 4.1 mmol/L (3.5-5.1); Sodium 138 mmol/L (137-145)
[2024-06-07 11:56] VITALS: BP 101/65; PULSE 69; RESP 16
== END 2024-06-07 11:56 | disposition home or self-care (01) ==
LOC: EC 07:56
DX: R05.9 Cough, unspecified (principal); Z87.09 Personal history of other diseases of the respiratory system; Z87.891 Personal history of nicotine dependence; Z91.041 Radiographic dye allergy status; Z88.5 Allergy status to narcotic agent
CPT/HCPCS: 36415; 71046; 80048; 83605; 85025; 87636; 99284

== ENCOUNTER 2024-07-02 15:52 | Emergency (ER) | payer MEDICARE, OTHER ==
[2024-07-02 17:54] LABS: Basophils # (A) 0.1 k/uL (0-0.2); Basophils % (A) 1 %; Eosinophils # (A) 0.2 k/uL (0-0.7); Eosinophils % (A) 2 %; HCT 40.3 % (34.0-46.0); HGB 13.7 gm/dL (11.4-16.0); Lymphocytes # (A) 2.6 k/uL (1.0-4.8); Lymphocytes % (A) 26 %; MCHC 33.9 g/dL (31.0-37.0); MCV 88.5 fL (80.0-100.0); Mean Platelet Volume 6.9; Monocytes # (A) 0.6 k/uL (0-1.0); Monocytes % (A) 6 %; Neutrophils # (A) 6.5 k/uL (1.3-7.7); Neutrophils % (A) 64 %; Platelet Count 457 k/uL (150-450); RBC 4.56 m/uL (3.80-5.40); RDW 12.9 % (11.5-15.5); WBC 10.3 k/uL (3.8-10.6)
[2024-07-02 18:04] LABS: INR 0.9 (<1.2); Partial Thromboplastin Time 23.2 sec (22.0-30.0); Prothrombin Time 10.1 sec (10.0-12.5)
[2024-07-02 18:06] LABS: ALT 22 U/L (4-34); AST 23 U/L (14-36); African American GFR (CKD) 78 (>60 ml/min/1.73 sqM); Albumin 4.2 g/dL (3.5-5.0); Alkaline Phosphatase 102 U/L (38-126); Anion Gap 9 mmol/L; Blood Urea Nitrogen 28 mg/dL (7-17); Calcium 9.7 mg/dL (8.4-10.2); Carbon Dioxide 24 mmol/L (22-30); Chloride 108 mmol/L (98-107); Glucose 96 mg/dL (74-99); Magnesium 2.2 mg/dL (1.6-2.3); Non-African American GFR(CKD) 68 (>60 ml/min/1.73 sqM); Potassium 3.8 mmol/L (3.5-5.1); Sodium 141 mmol/L (137-145); Total Bilirubin 0.2 mg/dL (0.2-1.3); Total Protein 6.7 g/dL (6.3-8.2)
--- NOTE | 2024-07-02 18:13 | ED ---
Chest Pain HPI - General Chief Complaint: Chest Pain Stated Complaint: trouble talking, breathing, coughing Time Seen by Provider: 07/02/24 16:17 Source: patient Mode of arrival: wheelchair Limitations: no limitations - History of Present Illness Initial Comments: This patient is a 69-year-old woman who presents to have evaluation for cough and mild shortness of breath that has been going on for approximately 5 to 6 weeks. The patient states that as result of the coughing she has also developed bilateral rib pain. Patient denies fevers. She has had a little bit of yellow- green sputum. MD Complaint: chest pain -: days(s) Onset: during rest Pain Location: left chest, right chest Pain Radiation: none Severity: moderate Quality: aching Consistency: constant Improves With: nothing Worsens With: nothing Other Symptoms: cough - Related Data Home Medications Medication Instructions Recorded Confirmed Atorvastatin [Lipitor] 10 mg PO HS 09/21/22 06/07/24 Esomeprazole Magnesium [NexIUM] 20 mg PO DAILY 06/07/24 06/07/24 Gabapentin [Neurontin] 100 mg PO TID 06/07/24 06/07/24 Previous Rx's Medication Instructions Recorded Benzonatate [Tessalon Perle] 100 mg PO TID PRN #24 capsule 06/07/24 methylPREDNISolone Dose Pack 4 mg PO DIRECTED #1 packet 06/07/24 [Medrol Dose Pack] Albuterol Inhaler [Ventolin Hfa 2 puff INHALATION Q4HR PRN #8 gm 07/02/24 Inhaler] Azithromycin [Zithromax] 0 mg PO DIRECTED #6 tab 07/02/24 predniSONE 60 mg PO DAILY #30 tab 07/02/24 Allergies Allergy/AdvReac Type Severity Reaction Status Date / Time hydromorphone HCl Allergy Dyspnea Verified 07/02/24 16:08 [From Dilaudid] Iodinated Contrast Media AdvReac Severe Decreased Verified 07/02/24 16:08 [Iodinated Contrast Media - Blood Oral and] Pressure Review of Systems ROS Statement: Those systems with pertinent positive or pertinent negative responses have been documented in the HPI. ROS Other: All systems not noted in ROS Statement are negative. Constitutional: Denies: fever, chills, weakness ENT: Reports: congestion Respiratory: Reports: cough, dyspnea. Denies: wheezes Cardiovascular: Reports: chest pain. Denies: palpitations, dyspnea on exertion, edema, syncope Gastrointestinal: Denies: abdominal pain, nausea, vomiting, diarrhea Genitourinary: Denies: dysuria, hematuria Musculoskeletal: Denies: back pain Skin: Denies: rash Neurological: Denies: headache, weakness, numbness EKG Findings - EKG Results: EKG: interpreted by JOSELO WU, sinus rhythm (Rate 84 bpm), normal axis, normal QRS, normal ST/T Past Medical History Past Medical History: Hyperlipidemia, Pneumonia Additional Past Medical History / Comment(s): irregular heart beat, chronic low back pain, bronchitis, UTI History of Any Multi-Drug Resistant Organisms: None Reported Past Surgical History: Appendectomy, Back Surgery, Cholecystectomy, Hysterectomy, Orthopedic Surgery, Tonsillectomy, Tubal Ligation Additional Past Surgical History / Comment(s): Posterior lumbar decompression with fusion L5-S1, plate L wrist, laparoscopy-found tubal infection tx with ABX. Past Anesthesia/Blood Transfusion Reactions: No Reported Reaction Past Psychological History: No Psychological Hx Reported Smoking Status: Former smoker Past Alcohol Use History: Rare Past Drug Use History: None Reported - Past Family History Father History Unknown: Yes Family Medical History: No Reported History (She denied much with her father.) Mother Family Medical History: Seizure Disorder (Mother is a 1-year-old has history of seizure and she also has a history of depression.) Additional Family Medical History / Comment(s): Mother is 81 yrs old. She has depression. Brother(s) Family Medical History: No Reported History (Patient has 3 half-brothers no major medical problems.) Sister(s) Family Medical History: No Reported History (Patient has one sister no major medical problem(she carried her from the sperm donor)) Son(s) Family Medical History: No Reported History (Patient has one son major medical problems) Daughter(s) Family Medical History: No Reported History (Patient has one daughter no major medical problems) General Exam Limitations: no limitations General appearance: alert, in no apparent distress Head exam: Present: atraumatic, normocephalic Eye exam: Present: normal appearance. Absent: scleral icterus, conjunctival injection ENT exam: Present: normal oropharynx Neck exam: Present: normal inspection Respiratory exam: Present: wheezes, chest wall tenderness. Absent: respiratory distress, rales, rhonchi, stridor, accessory muscle use Cardiovascular Exam: Present: regular rate, normal rhythm, normal heart sounds. Absent: systolic murmur, diastolic murmur, rubs, gallop GI/Abdominal exam: Present: soft. Absent: distended, tenderness, guarding, rebound, rigid, mass Extremities exam: Present: normal inspection, normal capillary refill. Absent: pedal edema, calf tenderness Back exam: Present: normal inspection. Absent: CVA tenderness (R), CVA tenderness (L) Neurological exam: Present: alert Skin exam: Present: warm, dry, intact, normal color. Absent: rash Course Vital Signs 07/02/24 07/02/24 07/02/24 16:10 20:20 20:30 Temperature 97.9 F Pulse Rate 87 85 87 Respiratory 22 Rate Blood Pressure 139/82 O2 Sat by Pulse 94 L Oximetry 07/02/24 20:45 Temperature 97.6 F Pulse Rate 78 Respiratory 16 Rate Blood Pressure 115/79 O2 Sat by Pulse 94 L Oximetry Chest Pain [facility] [place] [facility] [place] The patient had chest x-ray that I interpreted as negative for acute infiltrate, pneumothorax, congestive heart failure Was pt. sent in by a medical professional or institution (, PA, MANAGER WIND, urgent care, hospital, or detention...) When possible be specific @ -[No] Did you speak to anyone other than the patient for history (EMS, parent, family, police, friend...)? What history was obtained from this source @ -[No] Did you review nursing and triage notes (agree or disagree)? Why? @ -[I reviewed and agree with nursing and triage notes] Were old charts reviewed (outside hosp., previous admission, EMS record, old EKG, old radiological studies, urgent care reports/EKG's, detention records)? Report findings @ -[No old charts were reviewed] Differential Diagnosis (chest pain, altered mental status, abdominal pain women, abdominal pain men, vaginal bleeding, weakness, fever, dyspnea, syncope, headache, dizziness, GI bleed, back pain, seizure, CVA, palpatations, mental health, musculoskeletal)? @ -[Differential Chest Pain: Stable Angina, Unstable Angina, STEMI, NSTEMI Aortic Dissection, Pneumothorax, Musculoskeletal, Esophageal Spasm GERD, Cholecystitis, Pancreatitis, Zoster, this is not meant to be an all-inclusive list. EKG interpreted by me (3pts min.). @ -[I interpreted as above] X-rays interpreted by me (1pt min.). @ -[I interpreted as above CT interpreted by me (1pt min.). @ -[None done] U/S interpreted by me (1pt. min.). @ -[None done] What testing was considered but not performed or refused? (CT, X-rays, U/S, labs)? Why? @ -[None] What meds were considered but not given or refused? Why? @ -[None] Did you discuss the management of the patient with other professionals (professionals i.e. DrChristopher, PA, MANAGER WIND, lab, RT, psych nurse, social work therapist, court stenographer, teacher, worldwide chief creative officer, spring encaser)? Give summary @ -[No] Was smoking cessation discussed for >3mins.? @ -[No] Was critical care preformed (if so, how long)? @ -[No] Were there social determinants of health that impacted care today? How? (Homelessness, low income, unemployed, alcoholism, drug addiction, transportation, low edu. Level, literacy, decrease access to med. care, [facility], rehab)? @ -[No] Was there de-escalation of care discussed even if they declined (Discuss DNR or withdrawal of care, Hospice)? DNR status @ -[No] What co-morbidities impacted this encounter? (DM, HTN, Smoking, COPD, CAD, Cancer, CVA, ARF, Chemo, Hep., AIDS, mental health diagnosis, sleep apnea, morbid obesity)? @ -[None] Was patient admitted / discharged? Hospital course, mention meds given and route, prescriptions, significant lab abnormalities, going to OR and other pertinent info. @ -[Patient is 69-year-old woman here with cough and bilateral rib pain. Patient's history and physical consistent with laryngeal tracheobronchitis. The patient chest x-ray does not reveal dense infiltrate. At this point patient stable for outpatient care with close follow-up. Discussed appropriate further care as well as return parameters. Undiagnosed new problem with uncertain prognosis? @ -[No] Drug Therapy requiring intensive monitoring for toxicity (Heparin, Nitro, Insulin, Cardizem)? @ -[No] Were any procedures done? @ -[No] Diagnosis/symptom? @ -[Acute laryngeal tracheobronchitis Acute, or Chronic, or Acute on Chronic? @ -[Acute Uncomplicated (without systemic symptoms) or Complicated (systemic symptoms)? @ -Uncomplicated Side effects of treatment? @ -[No] Exacerbation, Progression, or Severe Exacerbation? @ -[No] Poses a threat to life or bodily function? How? (Chest pain, USA, [place], pneumonia, PE, COPD, DKA, ARF, appy, cholecystitis, CVA, Diverticulitis, Homicidal, Suicidal, threat to staff... and all critical care pts) @ -[No] All treatments are based on ideal body weight as in ED triage Disposition Clinical Impression: Laryngotracheobronchitis Disposition: HOME SELF-CARE Condition: Fair Instructions (If sedation given, give patient instructions): Acute Bronchitis (ED) Prescriptions: predniSONE 60 mg PO DAILY #30 tab Albuterol Inhaler [Ventolin Hfa Inhaler] 2 puff INHALATION Q4HR PRN #8 gm PRN Reason: Wheezing Azithromycin [Zithromax] 0 mg PO DIRECTED #6 tab Is patient prescribed a controlled substance at d/c from ED?: No Referrals: Jarrett Alfaro [Primary Care Provider] - 1-2 days Ariel Vuong MD [STAFF PHYSICIAN] - 1-2 days
[2024-07-02] MEDS: CALCIUM CARBONATE 500 MG CHEWABLE PO STA (18:21)
--- NOTE | 2024-07-02 18:45 | XR ---
EXAMINATION TYPE: XR chest 2V DATE OF EXAM: 07/02/2024 6:03 PM COMPARISON: 06/07/2024 CLINICAL INDICATION: Female, 69 years old with history of Chest Pain, TECHNIQUE: XR chest 2V view(s) obtained. FINDINGS: The heart size is normal. The pulmonary vasculature is normal. The lungs are clear. IMPRESSION: 1. No acute pulmonary process. [facility], , 07/02/2024 6:43 PM
[2024-07-02 19:35] LABS: Influenza A Not Detected (Not Detectd); Influenza B Not Detected (Not Detectd); RSV Not Detected (Not Detectd)
[2024-07-02] MEDS: predniSONE 20 MG TAB PO STA (19:51)
[2024-07-02] MEDS: AZITHROMYCIN 500 MG TAB PO STA (19:51)
[2024-07-02] MEDS: ALBUTEROL NEBULIZED 2.5 MG/3 ML INHALATION STA (20:20)
[2024-07-02] MEDS: IPRATROPIUM-ALBUTEROL 3 ML NEB INHALATION STA (20:20)
[2024-07-02 20:45] VITALS: BP 115/79; RESP 16
[2024-07-02 20:46] VITALS: PULSE 78; TEMP 97.6
== END 2024-07-02 20:45 | disposition home or self-care (01) ==
LOC: EC 15:52
DX: J20.9 Acute bronchitis, unspecified (principal); Z87.891 Personal history of nicotine dependence; Z91.041 Radiographic dye allergy status; Z88.8 Allergy status to other drugs, medicaments and biological substances
CPT/HCPCS: 36415; 94640; 93005; 85379; 83880; 80053; 83735; 84484; 85025; 85610; 85730; 87636; 71046; 99285; J7512

== ENCOUNTER → 2024-09-03 | Outpatient (CLI) | payer MEDICARE, OTHER ==
[2024-09-03 18:07] LABS: HCT 41.2 % (37.2-46.3); MCH 29.1 pg (27.0-32.0); MCHC 31.6 g/dL (32.0-37.0); MCV 92.4 FL (80.0-97.0); Mean Platelet Volume 9.1 FL (9.5-12.2); NRBC Per 100 WBC 0 X 10*3/uL (0.00-0.01); Platelet Count 337 X 10*3/uL (140-440); RBC 4.46 X 10*6/uL (4.10-5.20); RDW 12.9 % (11.5-14.5); WBC 5.96 X 10*3/uL (4.50-10.00)
[2024-09-03 18:16] LABS: Blood Urea Nitrogen 25.1 mg/dL (9.0-27.0); Carbon Dioxide 21.8 mmol/L (21.6-31.8); Chloride 111 mmol/L (96-109); Potassium 4.3 mmol/L (3.5-5.5); Sodium 142 mmol/L (135-145)
== END | disposition home or self-care (01) ==
LOC: LABPAT 13:46
PROVIDERS: ATTEND Internal Medicine Cardiovascular Disease
DX: Z01.812 Encounter for preprocedural laboratory examination (principal); R07.2 Precordial pain
CPT/HCPCS: 80051; 82565; 84520; 85027

== ENCOUNTER 2024-09-27 15:30 | Emergency (ER) | payer MEDICARE, OTHER ==
[2024-09-27 15:52] VITALS: PULSE 61; RESP 16
--- NOTE | 2024-09-27 16:06 | ED ---
Abdominal Pain HPI - General Chief Complaint: Abdominal Pain Stated Complaint: Side/kidney pain Time Seen by Provider: 09/27/24 16:04 Source: patient, family (), RN notes reviewed Mode of arrival: wheelchair Limitations: no limitations - History of Present Illness Initial Comments: 69-year-old female with a past medical history significant of hyperlipidemia, fibromyalgia presented to the ER for dilation of right foot pain she states a round noon today she started to experience a right flank pain with radiation into her right lower quadrant. She attempted to take ibuprofen and Tylenol without relief of pain. She states it feels like someone is stabbing a knife into her back. No history of kidney stones. Denies any hematuria, dysuria or increase in frequency. Patient denies any nausea, vomiting, diarrhea or constipation. Patient reports a history of a partial hysterectomy and appendectomy. She denies any fevers or chills. She states that is difficult for her to find a comfortable position or ambulate given pain. Patient has no other complaints at this time. - Related Data Home Medications Medication Instructions Recorded Confirmed Atorvastatin [Lipitor] 10 mg PO HS 09/21/22 09/27/24 Esomeprazole Magnesium [NexIUM] 20 mg PO BID 06/07/24 09/27/24 Gabapentin [Neurontin] 100 mg PO BID 06/07/24 09/27/24 Aspirin EC [Ecotrin Low Dose] 81 mg PO DAILY 09/27/24 09/27/24 Baclofen 10 mg PO BID PRN 09/27/24 09/27/24 Metoprolol Succinate (ER) [Toprol 25 mg PO DAILY 09/27/24 09/27/24 Xl] Multivitamins, Thera [Multivitamin 1 tab PO DAILY 09/27/24 09/27/24 (formulary)] Nitroglycerin Sl Tabs [Nitrostat] 0.4 mg SL Q5M PRN 09/27/24 09/27/24 Previous Rx's Medication Instructions Recorded Lidocaine 4% Patch 1 patch TOPICAL DAILY #30 patch 09/27/24 Allergies Allergy/AdvReac Type Severity Reaction Status Date / Time hydromorphone HCl Allergy "Shuts Verified 09/27/24 16:33 [From Dilaudid] ogans down"/ Shortness of breath Iodinated Contrast Media AdvReac Severe Decreased Verified 09/27/24 16:33 [Iodinated Contrast Media - Blood Oral and] Pressure/ Shortness of Breath isosorbide [From Imdur] AdvReac Severe headache Verified 09/27/24 16:33 Review of Systems ROS Statement: Those systems with pertinent positive or pertinent negative responses have been documented in the HPI. ROS Other: All systems not noted in ROS Statement are negative. Past Medical History Past Medical History: Fibromyalgia, Hyperlipidemia, Pneumonia Additional Past Medical History / Comment(s): irregular heart beat, chronic low back pain, bronchitis, UTI History of Any Multi-Drug Resistant Organisms: None Reported Past Surgical History: Appendectomy, Back Surgery, Cholecystectomy, Hysterectomy, Orthopedic Surgery, Tonsillectomy, Tubal Ligation Additional Past Surgical History / Comment(s): Posterior lumbar decompression with fusion L5-S1, plate L wrist, laparoscopy-found tubal infection tx with ABX. Past Anesthesia/Blood Transfusion Reactions: No Reported Reaction Past Psychological History: No Psychological Hx Reported Smoking Status: Former smoker Past Alcohol Use History: Rare Past Drug Use History: None Reported - Past Family History Father History Unknown: Yes Family Medical History: No Reported History (She denied much with her father.) Mother Family Medical History: Seizure Disorder (Mother is a 1-year-old has history of seizure and she also has a history of depression.) Additional Family Medical History / Comment(s): Mother is 81 yrs old. She has depression. Brother(s) Family Medical History: No Reported History (Patient has 3 half-brothers no major medical problems.) Sister(s) Family Medical History: No Reported History (Patient has one sister no major medical problem(she carried her from the sperm donor)) Son(s) Family Medical History: No Reported History (Patient has one son major medical problems) Daughter(s) Family Medical History: No Reported History (Patient has one daughter no major medical problems) General Exam Limitations: no limitations General appearance: alert, in no apparent distress Respiratory exam: Present: normal lung sounds bilaterally. Absent: respiratory distress, wheezes, rales, rhonchi, stridor Cardiovascular Exam: Present: regular rate, normal rhythm, normal heart sounds. Absent: systolic murmur, diastolic murmur, rubs, gallop, clicks GI/Abdominal exam: Present: soft, tenderness (Right lower quadrant), normal bowel sounds Extremities exam: Present: normal inspection, full ROM, normal capillary refill. Absent: tenderness, pedal edema, joint swelling, calf tenderness Neurological exam: Present: alert, oriented X3, CN II-XII intact Skin exam: Present: warm, dry, intact, normal color. Absent: rash Course Vital Signs 09/27/24 15:49 Temperature 98 F Pulse Rate 61 Respiratory 16 Rate Blood Pressure 119/72 O2 Sat by Pulse 98 Oximetry Medical Decision Making - Medical Decision Making Was pt. sent in by a medical professional or institution (, KEVIN, DESIGN [employer], urgent care, hospital, or skilled nursing...) When possible be specific @ -[No] Did you speak to anyone other than the patient for history (EMS, parent, family, police, friend...)? What history was obtained from this source @ -Patient's , at bedside, aiding in HPI and past medical history. Did you review nursing and triage notes (agree or disagree)? Why? @ -[I reviewed and agree with nursing and triage notes] Were old charts reviewed (outside hosp., previous admission, EMS record, old EKG, old radiological studies, urgent care reports/EKG's, skilled nursing records)? Report findings @ -[No old charts were reviewed] Differential Diagnosis (chest pain, altered mental status, abdominal pain women, abdominal pain men, vaginal bleeding, weakness, fever, dyspnea, syncope, headache, dizziness, GI bleed, back pain, seizure, CVA, palpatations, mental health, musculoskeletal)? @ -Differential Abdominal Pain Women:Appendicitis, Cholecystitis, diverticulosis, ischemic bowel, pancreatitis, hepatitis, UTI, gastroenteritis, AAA, incarcerated hernia, bowel obstruction, constipation, inflammatory bowel, hepatitis, peptic ulcer disease, splenic infarction, perforated viscus, vulvitis, ovarian torsion, PID, kidney stone, placenta abruption, this is not meant to be an all-inclusive list EKG interpreted by me (3pts min.). @ -[As above] X-rays interpreted by me (1pt min.). @ -[None done] CT interpreted by me (1pt min.). @ -[None done] U/S interpreted by me (1pt. min.). @ -[None done] What testing was considered but not performed or refused? (CT, X-rays, U/S, labs)? Why? @ -[None] What meds were considered but not given or refused? Why? @ -[None] Did you discuss the management of the patient with other professionals (professionals i.e. , PA, DESIGN [employer], lab, RT, psych nurse, social work specialist, railroad track inspector, teacher, biological technical officer, lining caser)? Give summary @ -[No] Was smoking cessation discussed for >3mins.? @ -[No] Was critical care preformed (if so, how long)? @ -[No] Were there social determinants of health that impacted care today? How? (Homelessness, low income, unemployed, alcoholism, drug addiction, transportation, low edu. Level, literacy, decrease access to med. care, [facility], rehab)? @ -[No] Was there de-escalation of care discussed even if they declined (Discuss DNR or withdrawal of care, Hospice)? DNR status @ -[No] What co-morbidities impacted this encounter? (DM, HTN, Smoking, COPD, CAD, Cancer, CVA, ARF, Chemo, Hep., AIDS, mental health diagnosis, sleep apnea, morbid obesity)? @ -[None] Was patient admitted / discharged? Hospital course, mention meds given and route, prescriptions, significant lab abnormalities, going to OR and other pertinent info. @ -[hospital course] Undiagnosed new problem with uncertain prognosis? @ -[No] Drug Therapy requiring intensive monitoring for toxicity (Heparin, Nitro, Insulin, Cardizem)? @ -[No] Were any procedures done? @ -[No] Diagnosis/symptom? @ -[default] Acute, or Chronic, or Acute on Chronic? @ -[default] Uncomplicated (without systemic symptoms) or Complicated (systemic symptoms)? @ -[default] Side effects of treatment? @ -[No] Exacerbation, Progression, or Severe Exacerbation? @ -[No] Poses a threat to life or bodily function? How? (Chest pain, USA, [place], pneumonia, PE, COPD, DKA, ARF, appy, cholecystitis, CVA, Diverticulitis, Homicidal, Suicidal, threat to staff... and all critical care pts) @ -[No] - Lab Data Result diagrams: 09/27/24 16:13 09/27/24 16:13 Lab Results 09/27/24 09/27/24 09/27/24 Range/Units 16:13 16:13 16:13 WBC 7.25 (4.50-10.00) 10*3/uL RBC 4.51 (4.10-5.20) 10*6/uL Hgb 13.4 (12.0-15.0) g/dL Hct 39.9 (37.2-46.3) % MCV 88.5 (80.0-97.0) fL MCH 29.7 (27.0-32.0) pg MCHC 33.6 (32.0-37.0) g/dL Plt Count 368 (140-440) 10*3/uL MPV 8.7 L (9.5-12.2) fL Immature Gran % (Auto) 0.3 % Neutrophils % 47.4 % Lymphocytes % 38.5 % Monocytes % 9.5 % Eosinophils % 3.3 % Basophils % 1.0 % Immature Gran # 0.02 (0.00-0.04) 10*3/uL Neutrophils # 3.44 (1.80-7.70) 10*3/uL Lymphocytes # 2.79 (0.90-5.00) 10*3/uL Monocytes # 0.69 (0.20-1.00) 10*3/uL Eosinophils # 0.24 (0.04-0.35) 10*3/uL Basophils # 0.07 (0.00-0.10) 10*3/uL Sodium 140 (137-145) mmol/L Potassium 4.2 (3.5-5.1) mmol/L Chloride 107 (98-107) mmol/L Carbon Dioxide 22 (22-30) mmol/L Anion Gap 11 mmol/L BUN 21 H (7-17) mg/dL Creatinine 0.84 (0.52-1.04) mg/dL Est GFR (CKD-EPI)AfAm 81 (>60 ml/min/1.73 sqM) Est GFR (CKD-EPI)NonAf 71 (>60 ml/min/1.73 sqM) Glucose 92 (74-99) mg/dL Plasma Lactic Acid Jay (0.7-2.0) mmol/L Calcium 10.5 H (8.4-10.2) mg/dL Total Bilirubin 0.4 (0.2-1.3) mg/dL AST 28 (14-36) U/L ALT 36 H (4-34) U/L Alkaline Phosphatase 101 (38-126) U/L Total Protein 7.0 (6.3-8.2) g/dL Albumin 4.3 (3.5-5.0) g/dL Urine Color Colorless Urine Appearance Clear (Clear) Urine pH 5.0 (5.0-8.0) Ur Specific Herman 1.003 (1.001-1.035) Urine Protein Negative (Negative) Urine Glucose (UA) Negative (Negative) Urine Ketones Negative (Negative) Urine Blood Negative (Negative) Urine Nitrite Negative (Negative) Urine Bilirubin Negative (Negative) Urine Urobilinogen <2.0 (<2.0) mg/dL Ur Leukocyte Esterase Negative (Negative) 09/27/24 Range/Units 16:13 WBC (4.50-10.00) 10*3/uL RBC (4.10-5.20) 10*6/uL Hgb (12.0-15.0) g/dL Hct (37.2-46.3) % MCV (80.0-97.0) fL MCH (27.0-32.0) pg MCHC (32.0-37.0) g/dL Plt Count (140-440) 10*3/uL MPV (9.5-12.2) fL Immature Gran % (Auto) % Neutrophils % % Lymphocytes % % Monocytes % % Eosinophils % % Basophils % % Immature Gran # (0.00-0.04) 10*3/uL Neutrophils # (1.80-7.70) 10*3/uL Lymphocytes # (0.90-5.00) 10*3/uL Monocytes # (0.20-1.00) 10*3/uL Eosinophils # (0.04-0.35) 10*3/uL Basophils # (0.00-0.10) 10*3/uL Sodium (137-145) mmol/L Potassium (3.5-5.1) mmol/L Chloride (98-107) mmol/L Carbon Dioxide (22-30) mmol/L Anion Gap mmol/L BUN (7-17) mg/dL Creatinine (0.52-1.04) mg/dL Est GFR (CKD-EPI)AfAm (>60 ml/min/1.73 sqM) Est GFR (CKD-EPI)NonAf (>60 ml/min/1.73 sqM) Glucose (74-99) mg/dL Plasma Lactic Acid Jay 1.1 (0.7-2.0) mmol/L Calcium (8.4-10.2) mg/dL Total Bilirubin (0.2-1.3) mg/dL AST (14-36) U/L ALT (4-34) U/L Alkaline Phosphatase (38-126) U/L Total Protein (6.3-8.2) g/dL Albumin (3.5-5.0) g/dL Urine Color Urine Appearance (Clear) Urine pH (5.0-8.0) Ur Specific Herman (1.001-1.035) Urine Protein (Negative) Urine Glucose (UA) (Negative) Urine Ketones (Negative) Urine Blood (Negative) Urine Nitrite (Negative) Urine Bilirubin (Negative) Urine Urobilinogen (<2.0) mg/dL Ur Leukocyte Esterase (Negative) Disposition Clinical Impression: Right flank pain Disposition: HOME SELF-CARE Condition: Stable Additional Instructions: Follow-up with PCP. Return to the ER for any new or worsening symptoms. Prescriptions: Lidocaine 4% Patch 1 patch TOPICAL DAILY #30 patch Is patient prescribed a controlled substance at d/c from ED?: No Referrals: Carlyn Sellers MD [Primary Care Provider] - 1-2 days Time of Disposition: 18:30
[2024-09-27] MEDS: KETOROLAC 15 MG/ML 1 ML VIAL IVP STA (16:15)
[2024-09-27] MEDS: SODIUM CHLORIDE 0.9% 1,000 ML IV ONE (16:16)
[2024-09-27 16:19] LABS: Basophils # (A) 0.07 10*3/uL (0.00-0.10); Eosinophils # (A) 0.24 10*3/uL (0.04-0.35); Eosinophils % (A) 3.3 %; HCT 39.9 % (37.2-46.3); HGB 13.4 g/dL (12.0-15.0); Lymphocytes # (A) 2.79 10*3/uL (0.90-5.00); Lymphocytes % (A) 38.5 %; MCH 29.7 pg (27.0-32.0); MCHC 33.6 g/dL (32.0-37.0); MCV 88.5 fL (80.0-97.0); Mean Platelet Volume 8.7 fL (9.5-12.2); Monocytes # (A) 0.69 10*3/uL (0.20-1.00); Monocytes % (A) 9.5 %; Neutrophils # (A) 3.44 10*3/uL (1.80-7.70); Neutrophils % (A) 47.4 %; Platelet Count 368 10*3/uL (140-440); RBC 4.51 10*6/uL (4.10-5.20); WBC 7.25 10*3/uL (4.50-10.00)
[2024-09-27 16:22] LABS: Appearance,Urine Clear (Clear); Bilirubin,Urine Negative (Negative); Blood,Urine Negative (Negative); Color,Urine Colorless; Glucose,Urine (UA) Negative (Negative); Ketones,Urine Negative (Negative); Leukocyte Esterase,Urine Negative (Negative); Nitrite,Urine Negative (Negative); Protein,Urine Negative (Negative); Specific Gravity,Urine 1.003 (1.001-1.035); Urobilinogen,Urine <2.0 mg/dL (<2.0)
[2024-09-27 16:46] LABS: ALT 36 U/L (4-34); AST 28 U/L (14-36); African American GFR (CKD) 81 (>60 ml/min/1.73 sqM); Albumin 4.3 g/dL (3.5-5.0); Alkaline Phosphatase 101 U/L (38-126); Anion Gap 11 mmol/L; Blood Urea Nitrogen 21 mg/dL (7-17); Calcium 10.5 mg/dL (8.4-10.2); Carbon Dioxide 22 mmol/L (22-30); Chloride 107 mmol/L (98-107); Glucose 92 mg/dL (74-99); Non-African American GFR(CKD) 71 (>60 ml/min/1.73 sqM); Potassium 4.2 mmol/L (3.5-5.1); Sodium 140 mmol/L (137-145); Total Bilirubin 0.4 mg/dL (0.2-1.3)
[2024-09-27] MEDS: MORPHINE SULFATE 4 MG/ML SYRINGE IVP STA (17:16)
--- NOTE | 2024-09-27 17:20 | CT ---
EXAMINATION TYPE: CT abdomen pelvis wo con DATE OF EXAM: 09/27/2024 COMPARISON: Prior CT July 28, 2023 CLINICAL INDICATION: Female, 69 years old with history of r flank/RLQ abd pain, right flank pain, TECHNIQUE: CT scan of the abdomen and pelvis is performed without contrast, patient injected with mL of ., (none if empty) Oral contrast used: without Oral Contrast (none if empty) CT DLP: 863.8 mGycm, Automated exposure control for dose reduction was used. FINDINGS: LUNG BASES: Mild bibasilar linear scarring and/or atelectasis is redemonstrated. LIVER/GB: Several simple-appearing thin-walled cysts scattered throughout the liver are redemonstrate d. Cholecystectomy clips are redemonstrated. PANCREAS: No significant abnormality is seen. SPLEEN: No significant abnormality is seen. ADRENALS: No significant abnormality is seen. KIDNEYS: No renal stones or hydronephrosis is seen bilaterally. BOWEL: Diffuse colonic diverticulosis. No CT evidence for acute diverticulitis. No abnormal small or large bowel dilatation. UTERUS/ADNEXA: Uterus is surgically absent. LYMPH NODES: No greater than 1cm abdominal or pelvic lymph nodes are appreciated. OSSEOUS STRUCTURES: Surgical change L4-S1 levels is redemonstrated. Persistent moderate disc space na rrowing at the T11-T12 level. OTHER: Moderate calcified plaque of the infrarenal abdominal aorta is redemonstrated. IMPRESSION: No renal stones or hydronephrosis is seen bilaterally. No suspicious acute findings on no ncontrast CT to account for patient's symptoms [facility], , 09/27/2024 5:18 PM
[2024-09-27] MEDS: LIDOCAINE 4% PATCH TOPICAL ONE (18:08)
[2024-09-27 18:43] VITALS: BP 127/65; TEMP 98.1
== END 2024-09-27 18:43 | disposition home or self-care (01) ==
LOC: EC 15:30
DX: R10.31 Right lower quadrant pain (principal); E78.5 Hyperlipidemia, unspecified; M79.7 Fibromyalgia; Z87.891 Personal history of nicotine dependence; Z88.5 Allergy status to narcotic agent; Z91.041 Radiographic dye allergy status; Z88.8 Allergy status to other drugs, medicaments and biological substances
CPT/HCPCS: 36415; 80053; 83605; 85025; 81003; 74176; 99284; 96374; 96375; 96361; J2270; J1885

== ENCOUNTER → 2024-12-28 | Outpatient (CLI) | payer MEDICARE, OTHER ==
--- NOTE | 2024-12-28 13:05 | MR ---
EXAMINATION TYPE: MR cspine/lspine wo con DATE OF EXAM: 12/28/2024 12:35 PM COMPARISON: MRI lumbar spine 12/03/2023, CT lumbar spine 11/06/2023 CLINICAL INDICATION: Female, 69 years old with history of M48.02,M54.2,M54.5M54.6,M48.061, Neck and l ower back pain, LUE/RLE radiculopathy. Hx lumbar surgery. IV Contrast: None TECHNIQUE: Multiplanar, multisequence imaging of the cervical spine is performed without IV contrast. FINDINGS: Alignment: The cervical vertebral bodies have preserved heights. Alignment is within normal limits gi vivienne patient positioning. Bones: T1/T2 hyperintense vertebral hemangioma involving the T1 vertebral body. Remaining bone marrow signal is unremarkable. Cord: There is increased T2 within the central spinal cord at the C4-C5 level at site of posterior di sc osteophyte complex. Discs: Multilevel disc desiccation is present. C2-C3: No significant disc pathology. The spinal canal is patent. No neural foraminal stenosis. C3-C4: Posterior disc osteophyte complex resulting in mild central canal stenosis. Uncovertebral join t hypertrophy. Mild right neural foraminal stenosis. The left neural foramen is patent. C4-C5: Large posterior disc osteophyte complex resulting in moderate to severe central canal stenosis and mass effect upon the spinal cord . There is cord signal change at this level. Uncovertebral wilton nt hypertrophy. Severe left and mild right neuroforaminal stenosis. C5-C6: Broad-based disc bulge resulting in minimal central canal stenosis. Uncovertebral joint hypert rophy with mild bilateral neuroforaminal stenosis. C6-C7: Posterior disc ossify complex resulting in mild central canal stenosis. No significant neural foraminal stenosis. C7-T1: No significant disc pathology. The spinal canal is patent. No neural foraminal stenosis. Other: None. IMPRESSION: Multilevel disc degeneration with associated osteoarthritic changes. Most pronounced at C4 C5 with la rge posterior disc osteophyte complex causing compressive myelopathy. TECHNIQUE: Multi planar, multi sequence imaging was performed of the lumbar spine. No gadolinium wa s given. FINDINGS: Alignment: The lumbar vertebral bodies have preserved heights and alignment. Cord: The conus medullaris and the distal spinal cord appear unremarkable with regards to their signa l intensity and morphology. Bones/Discs: Postsurgical changes with bilateral pedicular screws and rods and intervertebral disc carrero rdware at L4-S1. This creates susceptibility artifact which limits evaluation. T1/T2 hyperintense clau ign vertebral hemangioma involving the L3 vertebral body. T12-L1: Right paracentral disc protrusion resulting in mild spinal canal stenosis. Mild right neural foraminal stenosis. The left neural foramen is patent. L1-L2: Minimal broad-based disc bulge. No significant spinal canal stenosis. Bilateral facet arthropa thy. Mild bilateral neural foraminal stenosis. L2-L3: No significant disc pathology. Spinal canal is patent. The neural foramen are patent. L3-L4: No disc herniation. Ligamentum flavum buckling. No significant spinal canal stenosis. Mild lef t neural foraminal stenosis. The right neural foramen is patent. L4-L5: Postsurgical changes. No significant neural foraminal or spinal canal stenosis. L5-S1: Postsurgical changes. No significant neural foraminal or spinal canal stenosis. Other findings: None. IMPRESSION: 1. Postsurgical changes at L4-S1 redemonstrated. 2. Multilevel degenerative disc disease. Redemonstration of right paracentral disc protrusion at T12- L1 resulting in mild spinal canal stenosis. [facility], , 12/28/2024 1:03 PM
== END | disposition home or self-care (01) ==
LOC: RADMRIMAIN 11:04
PROVIDERS: ATTEND Orthopaedic Surgery
DX: M48.02 Spinal stenosis, cervical region (principal); M00-M99 Diseases of the musculoskeletal system and connective tissue; M51.360 Other intervertebral disc degeneration, lumbar region with discogenic back pain only
CPT/HCPCS: 72141; 72148